=== PATIENT | female | born 1950 | race Caucasian/White ===

== ENCOUNTER 2016-08-07 11:52 | Emergency (ER) | payer MEDICARE, MEDICAID ==
[2016-06-20 09:18] VITALS: BMI 52.6
[~2016-08-07 11:52] MED LIST: ACTOS15 MG PO; ADVIL100 M1 PO; BAYER CHEWABLE81 MG PO; BUPROPION XL300 MG PO; CALAN SR240 MG PO; COUMADIN3 MG PO; COUMADIN6 MG PO; CYMBALTA30 MG PO; GLIMEPIRIDE4 MG PO; HUMALOG 30100 UNITS/ SC; HUMULIN R100 U/ML SC; HYDROCODONE-APA1 TAB PO; IBUPROFEN400 MG OR; INFED50 MG/ML; INSTA-GLUCOSE31 GM; LANTUS INSULIN10 ML SC; LASIX40 MG PO; LEVAQUIN250 MG PO; LISINOPRIL2.5 MG GT; LISINOPRIL2.5 MG PO; MACRODANTIN50 MG PO; MERREM 1 GM/NS 11 G1 IVPB; MOBIC7.5 MG PO; NIFEREX-150 CAP1 CA3 PO; NOVOLOG100 U/M1 SC; OMEPRAZOLE20 M1 PO; OXYBUTYNIN CHLOR5 MG PO; PRAVACHOL20 MG PO; PRILOSEC20 MG PO; RENVELA800 MG PO; REQUIP1 MG PO; ROCALTROL0.25 MCG PO; VANCOMYCIN 750750 MG IV; ZYVOX600 MG PO
[2016-08-07 12:31] LABS: BASOPHILS 0.3 % (0.0-2.0); EOSINOPHILS 3.8 % (0-7); HEMATOCRIT 30.3 % (36.0-48.0); HEMOGLOBIN 9.5 g/dL (12-16); IMMATURE GRANULOCYTES 0.2 % (0-5); MCHC 31.4 g/dL (31.0-37.0); MCV 89.4 fL (80.0-100.0); MEAN PLATELET VOLUME 9.3 fL (7.4-10.4); MONOCYTES 4.6 % (2-11); NEUTROPHILS 63.1 % (40-80); PLATELET COUNT 199 10x3/uL (130-400); RBC 3.39 10x6/uL (4.00-5.40); RDW 15.3 % (11.5-14.5); WBC 6.5 10x3/uL (4.8-10.8)
[2016-08-07 12:34] LABS: APPEARANCE CLEAR (CLEAR); BACTERIA FEW /hpf (NONE SEEN); BILIRUBIN NEGATIVE (NEGATIVE); COLOR STRAW (YELLOW); EPITHELIAL CELLS 0-5 /hpf (0-5); GLUCOSE NEGATIVE (NEGATIVE); KETONE NEGATIVE (NEGATIVE); LEUKOCYTE ESTERASE TRACE (NEGATIVE); NITRITE NEGATIVE (NEGATIVE); PROTEIN NEGATIVE (NEGATIVE); RED CELLS - URINE 0-5 /hpf (0-5); UROBILINOGEN NORMAL (NORMAL); WHITE CELLS - URINE 0-5 /hpf (0-5)
[2016-08-07 12:46] LABS: BILIRUBIN - TOTAL 0.3 mg/dL (0.2-1.3); CALCIUM 8.7 mg/dL (8.5-10.1); CARBON DIOXIDE 26.9 mmol/L (21.0-32.0); POTASSIUM - SERUM 4.9 mmol/L (3.5-5.1); PROTEIN - SERUM 6.8 g/dL (6.4-8.2)
[2016-08-07 13:02] LABS: APTT 69.8 SECONDS (22.8-39.4); INR 2.38 (0.85-1.17); PROTIME 26.1 SECONDS (11.6-15.0)
== END 2016-08-07 17:32 | disposition home or self-care (01) ==
LOC: D.ER 11:52
PROVIDERS: Emergency Medicine; Physician Assistant
DX: R53.1 Weakness (principal); N39.0 Urinary tract infection, site not specified; E11.9 Type 2 diabetes mellitus without complications; Z79.4 Long term (current) use of insulin; N18.9 Chronic kidney disease, unspecified; R10.32 Left lower quadrant pain; R05 Cough; D63.1 Anemia in chronic kidney disease

== ENCOUNTER 2016-08-22 15:16 | Emergency (ER) | payer MEDICARE, MEDICAID ==
[2016-06-20 09:18] VITALS: BMI 52.6
[2016-08-22 16:33] LABS: BASOPHILS 0.3 % (0.0-2.0); EOSINOPHILS 4.4 % (0-7); HEMATOCRIT 36.2 % (36.0-48.0); HEMOGLOBIN 11.4 g/dL (12-16); IMMATURE GRANULOCYTES 0.1 % (0-5); LYMPHOCYTES 33.9 % (15-50); MCH 28.3 pg (26.0-34.0); MCHC 31.5 g/dL (31.0-37.0); MCV 89.8 fL (80.0-100.0); MEAN PLATELET VOLUME 9.3 fL (7.4-10.4); MONOCYTES 4.9 % (2-11); NEUTROPHILS 56.4 % (40-80); RBC 4.03 10x6/uL (4.00-5.40); RDW 15.4 % (11.5-14.5); WBC 7.4 10x3/uL (4.8-10.8)
[2016-08-22 16:41] LABS: PLATELET COUNT 252 10x3/uL (130-400)
[2016-08-22 17:06] LABS: ALBUMIN 3.5 g/dL (3.4-5.0); ALKALINE PHOSPHATASE 61 U/L (46-116); ALT (SGPT) 25 U/L (10-68); CALC OSMOLALITY 306 mosm/kg (275-300); CALCIUM 8.8 mg/dL (8.5-10.1); CARBON DIOXIDE 24.3 mmol/L (21.0-32.0); CHLORIDE - SERUM 107 mmol/L (98-107); CREATININE - SERUM 2.6 mg/dL (0.6-1.3); GLUCOSE 181 mg/dL (74-106); POTASSIUM - SERUM 4.6 mmol/L (3.5-5.1); PROTEIN - SERUM 7.4 g/dL (6.4-8.2); SODIUM 143 mmol/L (136-145); UREA NITROGEN 61 mg/dL (7-18); eGFR NON AFRICAN AMERICAN 19 mL/min (90-120)
[2016-08-22 17:19] LABS: AMYLASE - SERUM 25 U/L (25-115); LIPASE 204 U/L (73-393); PRO BNP 146 pg/mL (0-125)
[2016-08-22 17:21] LABS: TROPONIN-I < 0.017 ng/mL (0.000-0.060)
== END 2016-08-22 19:10 | disposition home or self-care (01) ==
LOC: D.ER 15:16
PROVIDERS: Family Medicine
DX: T85.9XXA Unspecified complication of internal prosthetic device, implant and graft, initial encounter (principal); R19.7 Diarrhea, unspecified; I50.9 Heart failure, unspecified; D63.8 Anemia in other chronic diseases classified elsewhere; E87.5 Hyperkalemia; I12.9 Hypertensive chronic kidney disease with stage 1 through stage 4 chronic kidney disease, or unspecified chronic kidney disease; E11.9 Type 2 diabetes mellitus without complications; Z79.4 Long term (current) use of insulin

== ENCOUNTER 2016-10-19 13:02 | Emergency (ER) | payer MEDICARE, MEDICAID ==
[2016-06-20 09:18] VITALS: BMI 52.6
[2016-10-19 13:50] LABS: HEMATOCRIT 30.8 % (36.0-48.0); HEMOGLOBIN 10.2 g/dL (12-16); LYMPHOCYTES 20.8 % (15-50); MCH 28.8 pg (26.0-34.0); MCHC 33.1 g/dL (31.0-37.0); MEAN PLATELET VOLUME 9.1 fL (7.4-10.4); NEUTROPHILS 74.6 % (40-80); PLATELET COUNT 268 10x3/uL (130-400); RBC 3.54 10x6/uL (4.00-5.40); RDW 14.5 % (11.5-14.5); WBC 8.1 10x3/uL (4.8-10.8)
[2016-10-19 14:05] LABS: APTT 44.4 SECONDS (22.8-39.4); INR 2.73 (0.85-1.17); PROTIME 29.1 SECONDS (11.6-15.0)
[2016-10-19 14:12] LABS: ANION GAP 16.6 mmol/L (8-16); CALCIUM 8.7 mg/dL (8.5-10.1); CREATININE - SERUM 2.8 mg/dL (0.6-1.3); POTASSIUM - SERUM 4.6 mmol/L (3.5-5.1)
== END 2016-10-19 15:14 | disposition home or self-care (01) ==
LOC: D.ER 13:02
PROVIDERS: Emergency Medicine
DX: K64.8 Other hemorrhoids (principal); K92.2 Gastrointestinal hemorrhage, unspecified; K59.00 Constipation, unspecified; E11.65 Type 2 diabetes mellitus with hyperglycemia; Z79.4 Long term (current) use of insulin; N28.9 Disorder of kidney and ureter, unspecified; F32.9 Major depressive disorder, single episode, unspecified; K21.9 Gastro-esophageal reflux disease without esophagitis; I10 Essential (primary) hypertension

== ENCOUNTER 2016-12-08 13:56 | Emergency (ER) | payer MEDICARE, MEDICAID ==
[2016-06-20 09:18] VITALS: BMI 52.6
[2016-12-08 19:02] LABS: APPEARANCE HAZY (CLEAR); COLOR YELLOW (YELLOW); LEUKOCYTE ESTERASE 2+ (NEGATIVE); NITRITE POSITIVE (NEGATIVE); SPECIFIC GRAVITY 1.015 (1.005-1.020)
[2016-12-08 19:03] LABS: BACTERIA MANY /hpf (NONE SEEN); BILIRUBIN NEGATIVE (NEGATIVE); EPITHELIAL CELLS 0-5 /hpf (0-5); GLUCOSE NEGATIVE (NEGATIVE); KETONE NEGATIVE (NEGATIVE); PROTEIN TRACE mg/dL (NEGATIVE); RED CELLS - URINE 0-5 /hpf (0-5); UROBILINOGEN NORMAL (NORMAL)
[2016-12-08 19:16] LABS: BASOPHILS 0.4 % (0-2); EOSINOPHILS 2.4 % (0-7); HEMATOCRIT 34.7 % (36.0-48.0); IMMATURE GRANULOCYTES 0.1 % (0-5); LYMPHOCYTES 33.7 % (15-50); MCH 29.5 pg (26.0-34.0); MCHC 31.7 g/dL (31.0-37.0); MEAN PLATELET VOLUME 9.6 fL (7.4-10.4); NEUTROPHILS 59.4 % (40-80); PLATELET COUNT 282 10x3/uL (130-400); RBC 3.73 10x6/uL (4.00-5.40); RDW 14.8 % (11.5-14.5); WBC 8.4 10x3/uL (4.8-10.8)
[2016-12-08 19:28] LABS: ANION GAP 16.4 mmol/L (8-16); CALCIUM 9.3 mg/dL (8.5-10.1); CARBON DIOXIDE 25.7 mmol/L (21.0-32.0); CREATININE - SERUM 2.8 mg/dL (0.6-1.3); POTASSIUM - SERUM 5.1 mmol/L (3.5-5.1)
== END 2016-12-08 19:45 | disposition home or self-care (01) ==
LOC: D.ER 13:56
PROVIDERS: Nurse Practitioner Acute Care
DX: N39.0 Urinary tract infection, site not specified (principal); F32.9 Major depressive disorder, single episode, unspecified; E11.9 Type 2 diabetes mellitus without complications; I10 Essential (primary) hypertension; Z79.4 Long term (current) use of insulin; K21.9 Gastro-esophageal reflux disease without esophagitis

== ENCOUNTER 2016-12-27 17:52 | Emergency (ER) | payer MEDICARE, MEDICAID ==
[2016-06-20 09:18] VITALS: BMI 52.6
[~2016-12-27 17:52] MED LIST changes: -HYDROCODONE-APA1 TAB PO; +NORCO 7.5/325 T1 TA1 PO
[2016-12-29] MEDS ORDERED: LANTUS INSULIN10 ML SC (10:00)
[2016-12-29] MEDS ORDERED: STOOL SOFTENER100 M1 PO (10:03)
[2016-12-29] MEDS ORDERED: MUCINEX600 MG PO (10:03)
[2016-12-29] MEDS ORDERED: VITAMIN B-12500 MC1 PO (10:04)
[2016-12-29] MEDS ORDERED: MELATONIN10 M1 PO (10:05)
[2016-12-29] MEDS ORDERED: VERELAN PM100 MG PO (10:05)
== END 2016-12-27 20:38 | disposition home or self-care (01) ==
LOC: D.ER 17:52
DX: S91.114A Laceration without foreign body of right lesser toe(s) without damage to nail, initial encounter (principal); W23.0XXA Caught, crushed, jammed, or pinched between moving objects, initial encounter

== ENCOUNTER → 2016-12-29 09:10 | Outpatient (CLI) | payer MEDICARE, MEDICAID ==
[~2016-12-29 09:10] MED LIST changes: +MELATONIN10 M1 PO; +MUCINEX600 MG PO; +STOOL SOFTENER100 M1 PO; +VERELAN PM100 MG PO; +VITAMIN B-12500 MC1 PO
[2016-12-29 11:41] VITALS: Ht 165.1 cm
--- NOTE | 2016-12-29 11:46 | NUR ---
MICHELLE MCDANIEL TWISTING MACHINE OPERATOR ACCESS NURSE, UNABLE TO PLACE PICC LINE AT BEDSIDE, MICHELLE MCDANIEL HAS SCHEDULED PATIENT FOR PICC LINE IN INTERVENTIONAL RADIOLOGY AND HAS GIVEN PATIENT INFO FOR THAT PROCEDURE.
--- NOTE | 2016-12-29 11:53 | NUR ---
PATIENT DISCHARGED HOME VIA MOTORIZED WHEELCHAIR WITH CAREGIVER
== END | disposition home or self-care (01) ==
LOC: D.OPS 09:10
DX: D64.9 Anemia, unspecified (principal)

== ENCOUNTER → 2016-12-31 09:06 | Outpatient (CLI) | payer MEDICARE, MEDICAID ==
--- NOTE | ~2016-12-31 | HEMODYNAMI ---
PATIENT:ELSA GARCÍA MEDICAL RECORD: [id number] : 46 LOCATION:[facility] ADMISSION DATE: 12/31/16 Generatedon:12/31/201611:53 Patient name: ELSA GARCÍA Patient #: [id number] SSN: : 1950 Date of study: 12/31/2016 Page: Of Hemodynamic Procedure Report Patient Data Patient Demographics Procedure consent was obtained First Name: ELSA Gender: Female Last Name: RICKY : 1950 Middle Initial: O Age: 66 year(s) Patient #: [id number] Race: Unknown Additional ID: [id number] Contact details Address: [address] [place] [address] State: [place] City: [place] Zip code: [address] Admission Admission Data Admission Date: 12/31/2016 Admission Time: 9:06 Procedure Procedure Types Cath Procedure Peripheral Cath Diagnostic Procedure Cath Peripheral PICC PICC Line Placement Procedure Description Procedure Date Procedure Date: 12/31/2016 Procedure Start Time: 11:36 Procedure Staff Name Function Maxwell Kang MD Performing Physician Amy Lester RT Scrub Nayeli Hernandez RN Nurse Candice Hopson RT Monitor Procedure Data Cath Procedure Fluoroscopy Diagnostic fluoroscopy Total fluoroscopy Time: 1.7 time: 1.7 min min Diagnostic fluoroscopy Total fluoroscopy dose: dose: 14.2 mGy 14.2 mGy Hemodynamics Rest Pre Cath Intra NCS Post Cath Procedure Log Time Note 11:25:19 Time tracking: Regular hours 11:25:32 Use device set PICC 11:25:34 SorbaView Shield opened to sterile field. 11:25:35 Sterile Angiographic Pack opened to sterile field. 11:25:36 Bag Decanter opened to sterile field. 11:25:58 Right Arm area was prepped with chlora-prep and draped in sterile fashion 11:26:07 Signed procedure consent form obtained from patient. 11:35:02 Final Timeout: patient, procedure, and site verified with staff and physician. All members of the team are in agreement. 11:35:50 Procedure started. 11:36:47 Local anesthetic to right arm with Lidocaine 1% by Maxwell Kang MD.INITIAL ACCESS ONLY 11:37:51 Full Disclosure recording started 11:43:05 Venous access obtained using ultrasound guidance. 11:51:07 PICC line was trimmed to 48cmcm and advanced to the superior vena cava.Position verified under fluoroscopy. 11:51:17 Procedure ended.(Physican Out) 11:51:41 Fluoroscopy time 01.70 minutes. 11:51:51 Fluoroscopy dose: 14.2 mGy 11:51:51 Flurop Dose total: 14.2 11:51:53 Sharps counted by scrub and verified by R.N. 11:51:56 Procedure and supply charges have been captured, reviewed, submitted and are correct. Device Usage Item Name Manufacture Quantity Catalog Hospital Part Current Minimal Lot# / Number Charge Number Stock Stock Serial# Code Jos Coulterurion 1 [id number] 5 Shield Sterile Cardinal 1 [id number] 5 Angiographic Health Pack Bag Decanter Microtek 1 [facility] [id number] 5 Medical Inc[employer] Signature Audit [place] Stage Time Signature Unsigned Intra-Procedure 12/31/2016 Candice Hopson 11:53:26 AM RT(R) Signatures Monitor : Candice Hopson RT Signature : Date : Time : [address] [address]
== END | disposition home or self-care (01) ==
LOC: D.OPS 09:06 → D.RAD 10:00 → D.OPS 10:00
DX: D50.9 Iron deficiency anemia, unspecified (principal)

== ENCOUNTER → 2017-02-09 14:57 | Outpatient (CLI) | payer MEDICARE, MEDICAID ==
[2017-02-09 15:45] LABS: HEMOGLOBIN A1C 6.4 % (4.8-6.0)
== END | disposition home or self-care (01) ==
LOC: D.LABREF 14:57
PROVIDERS: Family Medicine
DX: E11.9 Type 2 diabetes mellitus without complications (principal)

== ENCOUNTER → 2017-03-01 15:06 | Outpatient (CLI) | payer MEDICARE, MEDICAID | END | disposition home or self-care (01) | LOC: D.LABREF 15:06 | DX: N39.0 Urinary tract infection, site not specified (principal); R30.0 Dysuria ==

== ENCOUNTER → 2017-03-06 16:06 | Outpatient (CLI) | payer MEDICARE, MEDICAID ==
[2017-03-06 16:46] LABS: ANION GAP 14.7 mmol/L (8-16); CALCIUM 8.1 mg/dL (8.5-10.1); CREATININE - SERUM 2.8 mg/dL (0.6-1.3); POTASSIUM - SERUM 4.7 mmol/L (3.5-5.1)
== END | disposition home or self-care (01) ==
LOC: D.LABREF 16:06
PROVIDERS: Family Medicine
DX: N30.00 Acute cystitis without hematuria (principal); R31.9 Hematuria, unspecified; I12.9 Hypertensive chronic kidney disease with stage 1 through stage 4 chronic kidney disease, or unspecified chronic kidney disease; N18.9 Chronic kidney disease, unspecified

== ENCOUNTER → 2017-03-09 16:27 | Outpatient (CLI) | payer MEDICARE, MEDICAID ==
[2017-03-09 20:32] LABS: ANION GAP 16.4 mmol/L (8-16); CALCIUM 9.2 mg/dL (8.5-10.1); CARBON DIOXIDE 25.1 mmol/L (21.0-32.0); POTASSIUM - SERUM 4.5 mmol/L (3.5-5.1)
== END | disposition home or self-care (01) ==
LOC: D.LABREF 16:27
DX: N39.0 Urinary tract infection, site not specified (principal)

== ENCOUNTER → 2017-04-28 13:56 | Outpatient (CLI) | payer MEDICARE, MEDICAID ==
[~2017-04-28 13:56] MED LIST changes: +BACLOFEN10 MG PO; +COUMADIN5 MG PO; +FERROUS SULFAT140 MG PO; +INVANZ 1 GM/NS 11 G1 IV; +IRON; +LINZESS145 MCG PO; +TYLENOL W/CODEI1 TAB PO; +ZOFRAN4 MG PO
[2017-04-28 15:17] LABS: APPEARANCE HAZY (CLEAR); BACTERIA MANY /hpf (NONE SEEN); BILIRUBIN NEGATIVE (NEGATIVE); COLOR YELLOW (YELLOW); EPITHELIAL CELLS 0-5 /hpf (0-5); GLUCOSE NEGATIVE (NEGATIVE); KETONE NEGATIVE (NEGATIVE); NITRITE NEGATIVE (NEGATIVE); PROTEIN TRACE mg/dL (NEGATIVE); RED CELLS - URINE 0-5 /hpf (0-5); UROBILINOGEN NORMAL (NORMAL); WHITE CELLS - URINE 25-50 /hpf (0-5)
== END | disposition home or self-care (01) ==
LOC: D.LABREF 13:56
PROVIDERS: Family Medicine
DX: N39.0 Urinary tract infection, site not specified (principal)

== ENCOUNTER → 2017-05-21 09:10 | Outpatient (CLI) | payer MEDICARE, MEDICAID ==
[2017-05-03 12:04] VITALS: BMI 52.0
[2017-05-21 11:31] LABS: APPEARANCE SLT CLOUDY (CLEAR); BILIRUBIN NEGATIVE (NEGATIVE); COLOR YELLOW (YELLOW); GLUCOSE 50 mg/dL (NEGATIVE); KETONE SMALL mg/dL (NEGATIVE); NITRITE NEGATIVE (NEGATIVE); PROTEIN TRACE mg/dL (NEGATIVE); UROBILINOGEN NORMAL (NORMAL)
[2017-05-21 11:34] LABS: BACTERIA MODERATE /hpf (NONE SEEN); EPITHELIAL CELLS 0-5 /hpf (0-5); MUCUS <1+ /lpf (NONE SEEN); RED CELLS - URINE RARE /hpf (0-5)
== END | disposition home or self-care (01) ==
LOC: D.LABREF 09:10
PROVIDERS: Family Medicine
DX: N39.0 Urinary tract infection, site not specified (principal)

== ENCOUNTER → 2017-05-28 13:15 | Outpatient (CLI) | payer MEDICARE, MEDICAID ==
[2017-05-03 12:04] VITALS: BMI 52.0
[2017-05-28 13:35] LABS: ANION GAP 16.4 mmol/L (8-16); CALCIUM 8.1 mg/dL (8.5-10.1); CARBON DIOXIDE 23.5 mmol/L (21.0-32.0); CREATININE - SERUM 2.8 mg/dL (0.6-1.3); POTASSIUM - SERUM 4.9 mmol/L (3.5-5.1)
== END | disposition home or self-care (01) ==
LOC: D.LABREF 13:15
PROVIDERS: Family Medicine
DX: E87.5 Hyperkalemia (principal)

== ENCOUNTER 2017-06-10 11:32 | Inpatient (IN) | payer MEDICARE, MEDICAID ==
[~2017-06-10] VITALS: Ht 160 cm; Wt 123.1 kg
[~2017-06-10 11:32] MED LIST changes: -BACLOFEN10 MG PO; -FERROUS SULFAT140 MG PO; -IRON; -TYLENOL W/CODEI1 TAB PO; -ZOFRAN4 MG PO
[2017-06-10 12:28] LABS: APPEARANCE CLOUDY (CLEAR); BACTERIA MANY /hpf (NONE SEEN); BILIRUBIN NEGATIVE (NEGATIVE); COLOR YELLOW (YELLOW); EPITHELIAL CELLS RARE /hpf (0-5); GLUCOSE NEGATIVE (NEGATIVE); KETONE NEGATIVE (NEGATIVE); MUCUS <1+ /lpf (NONE SEEN); NITRITE NEGATIVE (NEGATIVE); PROTEIN NEGATIVE (NEGATIVE); RED CELLS - URINE OCC /hpf (0-5); UROBILINOGEN NORMAL (NORMAL); WHITE CELLS - URINE 25-50 /hpf (0-5)
[2017-06-10 13:51] LABS: BASOPHILS 0.2 % (0-2); EOSINOPHILS 1.9 % (0-7); HEMATOCRIT 31.7 % (36.0-48.0); HEMOGLOBIN 9.7 g/dL (12-16); IMMATURE GRANULOCYTES 0.1 % (0-5); LYMPHOCYTES 16.6 % (15-50); MCH 27.5 pg (26.0-34.0); MCHC 30.6 g/dL (31.0-37.0); MCV 89.8 fL (80.0-100.0); MEAN PLATELET VOLUME 9.6 fL (7.4-10.4); MONOCYTES 4.6 % (2-11); NEUTROPHILS 76.6 % (40-80); RBC 3.53 10x6/uL (4.00-5.40); RDW 15.3 % (11.5-14.5); WBC 8.1 10x3/uL (4.8-10.8)
[2017-06-10 13:53] LABS: ANION GAP 13.3 mmol/L (8-16); BILIRUBIN - TOTAL 0.23 mg/dL (0.2-1.3); CALCIUM 8.6 mg/dL (8.5-10.1); CARBON DIOXIDE 25.6 mmol/L (21.0-32.0); CREATININE - SERUM 2.9 mg/dL (0.6-1.3); PLATELET COUNT 277 10x3/uL (130-400); POTASSIUM - SERUM 4.9 mmol/L (3.5-5.1); PROTEIN - SERUM 7.6 g/dL (6.4-8.2)
[2017-06-10 17:56] LABS: INR 1.25 (0.85-1.17); PROTIME 15.3 SECONDS (11.6-15.0)
--- NOTE | 2017-06-10 19:15 | NUR ---
PT ARRIVED TO FLOOR FROM ER. VSS. BREATHING EVEN AND UNLABORED. ORIENTED PT TO FLOOR AND NURSE. DENIES ANY NEEDS AT THIS TIME. BED IN LOW POSITION, CALL LIGHT WITHIN REACH. WILL CTM.
[2017-06-10 20:19] VITALS: BP 122/45
[2017-06-10 21:21] VITALS: BP 122/45; BMI 50.9
--- NOTE | 2017-06-10 21:32 | NUR ---
FSBS 184. 2 UNITS OF HUMALOG GIVEN PER SLIDING SCALE ORDER. DENIES ANY OTHER NEEDS AT THIS TIME. BED IN LOW POSITION, CALL LIGHT WITHIN REACH. WILL CTM.
--- NOTE | 2017-06-10 21:37 | NUR ---
PT HAS STATED SHE DOES NOT WANT TO PUT ON TELEMTRY UNTIL AFTER WE GIVE HER A BATH TONIGHT. SHE STATES SHE ISNT READY FOR A BATH YET BUT WILL LET US KNOW. SHE ALSO STATES SHE DOESNT WANT SCDS ON TONIGHT BUT MAYBE IN THE MORNING. WILL CTM.
[2017-06-11 00:38] VITALS: BP 158/50
[2017-06-11 04:57] VITALS: BP 154/58
[2017-06-11 05:39] LABS: INR 1.4 (0.85-1.17); PROTIME 16.7 SECONDS (11.6-15.0)
[2017-06-11 05:50] LABS: HEMATOCRIT 29.1 % (36.0-48.0); HEMOGLOBIN 9.4 g/dL (12-16); LYMPHOCYTES 20.2 % (15-50); MCH 28.1 pg (26.0-34.0); MCHC 32.3 g/dL (31.0-37.0); MCV 86.9 fL (80.0-100.0); MEAN PLATELET VOLUME 9.1 fL (7.4-10.4); NEUTROPHILS 71.8 % (40-80); PLATELET COUNT 257 10x3/uL (130-400); RBC 3.35 10x6/uL (4.00-5.40); RDW 14.4 % (11.5-14.5); WBC 7.2 10x3/uL (4.8-10.8)
[2017-06-11 06:01] LABS: ALBUMIN 2.6 g/dL (3.4-5.0); ANION GAP 15.6 mmol/L (8-16); BILIRUBIN - TOTAL 0.34 mg/dL (0.2-1.3); CALCIUM 8.3 mg/dL (8.5-10.1); CARBON DIOXIDE 24.3 mmol/L (21.0-32.0); CREATININE - SERUM 3.2 mg/dL (0.6-1.3); POTASSIUM - SERUM 4.9 mmol/L (3.5-5.1); PROTEIN - SERUM 6.9 g/dL (6.4-8.2)
[2017-06-11 08:00] VITALS: BP 151/50
--- NOTE | 2017-06-11 08:33 | NUR ---
AM ROUNDS - PT IN BED AND AWAKE AT THIS TIME. MONITOR SHOWING SR, HR 89. LEFT ARM MIDLINE, SL. GILES DRAINING CLEAR YELLOW. A&O. REFUSES SCD. NO NEEDS AT THIS TIME. BED AT LOWEST POSITIN. CALL TY IN USE/REACH. SIDE RAILS UP X2. WILL CONTTINUE TO MONITOR.
[2017-06-11 12:00] VITALS: BP 130/53
--- NOTE | 2017-06-11 15:27 | NUR ---
PT IN BED AND APPEARS TO BE RESTING WITH EQUAL AND NON LABORED BREATHING. WILL CONTINUE TO MONITOR
[2017-06-11 16:00] VITALS: BP 133/55
[2017-06-11 20:00] VITALS: BP 133/61
[2017-06-12] VITALS: BP 125/58
[2017-06-12 04:00] VITALS: BP 121/56
[2017-06-12 05:48] LABS: BASOPHILS 0.2 % (0-2); EOSINOPHILS 2.9 % (0-7); HEMATOCRIT 30.1 % (36.0-48.0); HEMOGLOBIN 9.5 g/dL (12-16); IMMATURE GRANULOCYTES 0.2 % (0-5); LYMPHOCYTES 22.6 % (15-50); MCH 27.8 pg (26.0-34.0); MCHC 31.6 g/dL (31.0-37.0); MEAN PLATELET VOLUME 9.4 fL (7.4-10.4); MONOCYTES 8.7 % (2-11); NEUTROPHILS 65.4 % (40-80); PLATELET COUNT 256 10x3/uL (130-400); RBC 3.42 10x6/uL (4.00-5.40); RDW 15.2 % (11.5-14.5); WBC 6.5 10x3/uL (4.8-10.8)
[2017-06-12 06:09] LABS: INR 1.15 (0.85-1.17); PROTIME 14.2 SECONDS (11.6-15.0)
[2017-06-12 06:17] LABS: ALBUMIN 2.5 g/dL (3.4-5.0); ANION GAP 14.9 mmol/L (8-16); BILIRUBIN - TOTAL 0.3 mg/dL (0.2-1.3); CALCIUM 8.5 mg/dL (8.5-10.1); CARBON DIOXIDE 24.6 mmol/L (21.0-32.0); CREATININE - SERUM 3.2 mg/dL (0.6-1.3); POTASSIUM - SERUM 4.5 mmol/L (3.5-5.1); PROTEIN - SERUM 6.8 g/dL (6.4-8.2)
[2017-06-12 07:54] VITALS: BP 112/40
--- NOTE | 2017-06-12 09:00 | NUR ---
REPORT RECEIVED. ASSESSMENT COMPLETED. ON CONTACT ISOLATION FOR ECOLI IN URINE. WILL CONTINUE TO MONITOR.
[2017-06-12 12:36] VITALS: BP 145/55
[2017-06-12 15:49] VITALS: BP 135/49
--- NOTE | 2017-06-12 19:33 | NUR ---
PT IN BED RESTING QUIETLY. BREATHING EVEN AND UNLABORED. DENIES ANY NEEDS AT THIS TIME. BED IN LOW POSITION, CALL LIGHT WITHIN REACH. WILL CTM.
[2017-06-12 20:00] VITALS: BP 117/54
[2017-06-13 04:00] VITALS: BP 124/60
[2017-06-13 05:21] LABS: BASOPHILS 0.1 % (0-2); EOSINOPHILS 3.6 % (0-7); HEMOGLOBIN 9.3 g/dL (12-16); IMMATURE GRANULOCYTES 0.1 % (0-5); LYMPHOCYTES 29.3 % (15-50); MCH 27.9 pg (26.0-34.0); MCHC 32.1 g/dL (31.0-37.0); MCV 87.1 fL (80.0-100.0); MEAN PLATELET VOLUME 9.5 fL (7.4-10.4); MONOCYTES 7.3 % (2-11); NEUTROPHILS 59.6 % (40-80); PLATELET COUNT 253 10x3/uL (130-400); RBC 3.33 10x6/uL (4.00-5.40); WBC 6.7 10x3/uL (4.8-10.8)
[2017-06-13 05:31] LABS: INR 1.37 (0.85-1.17); PROTIME 16.4 SECONDS (11.6-15.0)
[2017-06-13 05:42] LABS: ALBUMIN 2.4 g/dL (3.4-5.0); ANION GAP 15.3 mmol/L (8-16); BILIRUBIN - TOTAL 0.23 mg/dL (0.2-1.3); CALCIUM 8.1 mg/dL (8.5-10.1); CARBON DIOXIDE 23.8 mmol/L (21.0-32.0); CREATININE - SERUM 2.9 mg/dL (0.6-1.3); POTASSIUM - SERUM 4.1 mmol/L (3.5-5.1); PROTEIN - SERUM 6.6 g/dL (6.4-8.2)
--- NOTE | 2017-06-13 05:49 | NUR ---
FSBS 171. 2 UNITS HUMALOG GIVEN PER SLIDING SCALE. DENIES ANY OTHER NEEDS AT THIS TIME. BED IN LOW POSITION, CALL LIGHT WITHIN REACH. WILL CTM.
--- NOTE | 2017-06-13 07:53 | NUR ---
AM ROUNDS - PT IN BED AND APPEARS TO BE SLEEPING AT THIS TIME WITH EQUALA ND NON LABORED BREATHING. GILES. LEFT ARM MIDLINE. BED AT LOWEST POSITION. CALL TY IN USE/REACH. SIDE RAILS UP X2. WILL COTNINUE TO MONIOTR
[2017-06-13 08:00] VITALS: BP 113/38
[2017-06-13 12:00] VITALS: BP 113/41
[2017-06-13 16:00] VITALS: BP 148/31
--- NOTE | 2017-06-13 19:43 | NUR ---
RECEIVED REPORT, WILL ASSUME CARE OF PT, PT DENIES ANY OTHER NEEDS AT THIS TIME, STATES SAID SHE WILL PROBALY GET TO GO HOME TOMORROW, SHE IS COLORING AT THIS TIME, BED IS LOW, SRX2, CALL LIGHT IN REACH, WILL CONTINUE PLAN OF CARE
[2017-06-13 21:01] VITALS: BP 111/41
[2017-06-14 00:52] VITALS: BP 120/65
[2017-06-14 05:32] LABS: BASOPHILS 0.3 % (0-2); EOSINOPHILS 4.1 % (0-7); HEMATOCRIT 29.5 % (36.0-48.0); HEMOGLOBIN 9.4 g/dL (12-16); IMMATURE GRANULOCYTES 0.3 % (0-5); LYMPHOCYTES 30.5 % (15-50); MCH 27.6 pg (26.0-34.0); MCHC 31.9 g/dL (31.0-37.0); MCV 86.8 fL (80.0-100.0); MONOCYTES 7.2 % (2-11); NEUTROPHILS 57.6 % (40-80); PLATELET COUNT 243 10x3/uL (130-400); RDW 14.9 % (11.5-14.5); WBC 6.9 10x3/uL (4.8-10.8)
[2017-06-14 05:36] VITALS: BP 150/49
[2017-06-14 05:41] LABS: INR 1.57 (0.85-1.17); PROTIME 18.2 SECONDS (11.6-15.0)
[2017-06-14 05:54] LABS: ALBUMIN 2.6 g/dL (3.4-5.0); BILIRUBIN - TOTAL 0.17 mg/dL (0.2-1.3); CALCIUM 7.9 mg/dL (8.5-10.1); CARBON DIOXIDE 25.2 mmol/L (21.0-32.0); CREATININE - SERUM 2.8 mg/dL (0.6-1.3); POTASSIUM - SERUM 4.2 mmol/L (3.5-5.1); PROTEIN - SERUM 6.3 g/dL (6.4-8.2)
--- NOTE | 2017-06-14 08:19 | NUR ---
AM MEDS GIVEN AT THIS TIME. PT IN BED, FIXING TO EAT BREAKFAST. PT DENIES ANY NEEDS AT THIS TIME. MICROCOMPUTER SUPPORT SPECIALIST AT BEDSIDE TO DO VITAL SIGNS. NAD NOTED, CALL LIGHT IN REACH, WILL CONTINUE PLAN OF CARE.
[2017-06-14 08:42] VITALS: BP 152/55
--- NOTE | 2017-06-14 11:56 | NUR ---
BLOOD SUGAR OF 189, 2UNTIS OF HUMALOG GIVEN PER S/S. PT DENIES ANY NEEDS AT THIS TIME. CALL LIGHT IN REACH, NAD NOTED.
[2017-06-14 13:41] VITALS: BP 125/52
[2017-06-14 14:11] VITALS: Ht 160 cm; Wt 123.1 kg
--- NOTE | 2017-06-14 15:12 | NUR ---
PT IN BED, WATCHING TV, DENIES ANY NEEDS AT THIS TIME. CALL LIGHT IN REACH, NAD NOTED, WILL CONTINUE PLAN OF CARE.
--- NOTE | 2017-06-14 16:05 | NUR ---
CALLED PHARMACY AND SPOKE WITH RAFAELA RUSSO THAT I NEED CUBICIN FOR PT. RAFAELA STATED " WE WILL WORK ON IT".
--- NOTE | 2017-06-14 17:31 | NUR ---
BLOOD SUGAR OF 189, 2UNITS OF HUMALOG GIVEN PER S/S. ALSO HUNG IVPB CUBICIN AT THIS TIME. PT IN BE, EATING DINNER, DENIES ANY NEEDS AT THIS TIME. CALL LIGHT IN REACH, NAD NOTED.
[2017-06-14 17:42] VITALS: BP 128/36
--- NOTE | 2017-06-14 19:24 | NUR ---
RECEIVED REPORT, WILL ASSUME CARE OF PT, PT IS COLORING, DENIES ANY NEEDS, BED IS LOW, SRX2, CALL LIGHT IN REACH, WILL CONTINUE PLAN OF CARE
[2017-06-14 20:53] VITALS: BP 106/64
[2017-06-15 00:37] VITALS: BP 110/47
--- NOTE | 2017-06-15 02:43 | NUR ---
ASSESSMENT COMPLETE, SEE FLOWSHEET, PT SLEEPING, BED IS LOW, SRX2, CALL LIGHT IN REACH, WILL CONTINUE PLAN OF CARE
[2017-06-15 04:20] VITALS: BP 180/54
[2017-06-15 05:11] LABS: BASOPHILS 0.2 % (0-2); EOSINOPHILS 3.8 % (0-7); HEMATOCRIT 30.5 % (36.0-48.0); HEMOGLOBIN 9.6 g/dL (12-16); IMMATURE GRANULOCYTES 0.2 % (0-5); LYMPHOCYTES 29.2 % (15-50); MCH 27.5 pg (26.0-34.0); MCHC 31.5 g/dL (31.0-37.0); MCV 87.4 fL (80.0-100.0); MONOCYTES 4.7 % (2-11); NEUTROPHILS 61.9 % (40-80); PLATELET COUNT 267 10x3/uL (130-400); RBC 3.49 10x6/uL (4.00-5.40); RDW 14.7 % (11.5-14.5); WBC 6.1 10x3/uL (4.8-10.8)
[2017-06-15 05:19] LABS: INR 1.69 (0.85-1.17); PROTIME 19.4 SECONDS (11.6-15.0)
[2017-06-15 05:25] LABS: ALBUMIN 2.5 g/dL (3.4-5.0); ANION GAP 13.6 mmol/L (8-16); BILIRUBIN - TOTAL 0.19 mg/dL (0.2-1.3); CALCIUM 8.4 mg/dL (8.5-10.1); CARBON DIOXIDE 25.6 mmol/L (21.0-32.0); CREATININE - SERUM 2.7 mg/dL (0.6-1.3); POTASSIUM - SERUM 4.2 mmol/L (3.5-5.1); PROTEIN - SERUM 6.9 g/dL (6.4-8.2)
--- NOTE | 2017-06-15 07:12 | NUR ---
PT IN BED, COLORING, RESP EVEN AND UNLABORED, LT UPPER ARM MIDLINE SL. GILES DRAINING YELLOW URINE TO GRAVITY. PT DENIES ANY NEEDS AT THIS TIME. CALL LIGHT IN REACH, NAD NOTED, WILL CONTINUE PLAN OF CARE.
[2017-06-15 08:00] VITALS: BP 106/62
--- NOTE | 2017-06-15 08:32 | NUR ---
AM MEDS GIVEN AT THIS TIME. PT IN BED, WATCHING, TV, DENIES ANY NEEDS AT THIS TIME. CALL LIGHT IN REACH, NAD NOTED, WILL CONTINUE PLAN OF CARE.
--- NOTE | 2017-06-15 11:11 | NUR ---
BLOOD SUGAR OF 160, 2 UNITS OF HUMALOG GIVEN PER S/S. PT DENIES ANY NEEDS AT THIS TIME. CALL LIGHT IN REACH, NAD NOTED.
[2017-06-15 12:00] VITALS: BP 108/32
--- NOTE | 2017-06-15 15:42 | NUR ---
PT IN BED, WATCHING TV, DENIES ANY NEEDS AT THIS TIME. CALL LIGHT IN REACH, NAD NOTED.
[2017-06-15 16:00] VITALS: BP 121/31
--- NOTE | 2017-06-15 16:09 | NUR ---
PAGED DR. CUMMINS, WAITING ON HER TO CALL BACK.
--- NOTE | 2017-06-15 17:39 | NUR ---
Patient Name: ELSA GARCÍA Admission Status: ER Accout number: [id number] Admission Date: 06-10-2017 : 1950 Admission Diagnosis:FEVER, UNSPECIFIED Attending: MIKKI, Current LOS: 5 Anticipated DC Date: 06-15-2017 Planned Disposition: Home with Home Health Primary Insurance: [facility] PLANNED EXTERNAL PROVIDER: [facility] Discharge Planning Comments: * Is the patient Alert and Oriented? Yes 0 * How many steps to enter\exit or inside your home? RAMP 0 * PCP DR. KAYE 0 * Pharmacy [facility] BY [facility]ACHID ESTRADA 0 * Preadmission Environment Home Alone 0 * ADLs Partial Dependent 0 * Partial ADLs (Assistance needed) Bathing Dressing 0 * Equipment Hospital Bed [place] Lift Trapeze Wheelchair 0 * Other Equipment ELECTRIC WHEELCHAIR ICELANDIC CHESWOLD PATIENT - MEDICAL EQUIPMENT PROVIDER 0 * List name and contact numbers for known caregivers / representatives who currently or will assist patient after discharge: MIGUEL PERALTA, ABE/CAREGIVER, 0 * Community resources currently utilized Home Health 0 * Please name any agencies selected above. [facility] 0 * Additional services required to return to the preadmission environment? Yes * Can the patient safely return to the preadmission environment? Yes 0 * Has this patient been hospitalized within the prior 30 days at any hospital? No 0 CM RECEIVED ORDER FOR HOME INFUSION SERVICES. CM MET WITH PT IN ROOM TO DISCUSS DISCHARGE PLANNING AND NEEDS. PT REPORTS LIVING AT HOME ALONE DEPENDENT ON ABE WHO IS HER PAID CAREGIVER THROUGH [facility], 6 HOURS PER DAY, 7 DAYS PER WEEK. PT REPORTS HAVING ALL NEEDED MEDICAL EQUIPMENT FROM [facility] PATIENT. PT HAS HOME HEALTH WITH [facility] FOR NURSING ONLY AT THIS TIME. CM DISCUSSED AVAILABILITY OF HOME HEALTH, REHAB SERVICES AND MEDICAL EQUIPMENT. PT WANTS TO USE [facility]. PT'S ABE IS CAPABLE OF IV INFUSION THEY HAVE DONE THIS MANY TIMES AT HOME, PT REPORTS SHE NEEDS AN AMBULANCE TO PICK HER UP FOR DISCHARGE HOME. IMPORTANT MESSAGE FROM MEDICARE PROVIDED AND EXPLAINED. CM CALLED [facility] [phone], SPOKE TO HÉCTOR WHO REPORTS ABILITY TO ACCEPT FOR IV INFUSION AND REPORTS PT TO HAVE A TEACHABLE CAREGIVER AT HOME THAT HAS DONE HOME INFUSION BEFORE. CM FAXED REFERRAL TO [facility] AT [phone]. CM CALLED [facility], , SPOKE TO RAI, PROVIDED REFERRAL INFORMATION FOR HOME DELIVERY OF SUPPLIES AND MEDICATION FOR PT TO BEGIN HOME INFUSION TOMORROW, 06-16-17. CM FAXED REFERRAL ELECTRONICALLY AND MANUALLY TO [phone] AND [phone]. FOR DISCHARGE, NOTIFY [facility] AT [phone], FAX DISCHARGE INFORMATION TO [facility] AT [phone]. CM WAITING CONFIRMATION FROM [facility] OF MEDICATION DELIVERY ARRANGEMENTS WITH PT FOR INFUSION TO BEGIN TOMORROW. Composite Technician: Mani Lisa
--- NOTE | 2017-06-15 18:12 | NUR ---
PROVIDED VERBAL AND WRITTEN DISCHARGE TEACHING TO PT, PT VERBALIZED UNDERSTANDING REGARDING TEACHING. GOING HOME ON ANTIBIOTICS MIDLINE IN PLACE TO LT UPPER ARM. 1812- CALLED [facility] AND SPOKE WITH JADYN, [facility] WILL TOURIST INFORMATION OFFICER PT SOON THEY CAN.
--- NOTE | 2017-06-15 19:44 | NUR ---
EMS HERE TO TAKE PT ORDERED R/T D/C. PT HAD A LARGE BM PRIOR TO TRANSPORT, WAS CLEANED, BATHED, NEW GOWN PLACED AND CLEAN LINENS PLACED. EMS TRANSFERRED PT FROM BED TO STRETCHER WITHOUT INCIDENT. PT IS AWAKE, ALERT, ORIENTED, DENIES ANY NEEDS.
--- NOTE | 2017-06-16 09:07 | NUR ---
Patient Name: ELSA GARCÍA Encounter No: [id number] : 1950 Primary Insurance: [employer] Anticipated DC Date: 06-15-2017 Planned Disposition: Home with Home Health External Planned Provider: [facility] DCP follow-up note: CM REVIEWED CHART, PT DISCHARGED HOME LAST NIGHT. CM CALLED [facility], SPOKE TO RAI AT [phone], FAX WAS RECEIVED AFTER HOURS LAST NIGHT AND MEDICATION HAS BEEN COORDINATED FOR DELIVERY TODAY TO PT AT HOME TO START INFUSION SERVICES TODAY. CM CALLED [facility], , SPOKE TO TIANA WHO REPORTS THEY WILL ADMIT TODAY. CM FAXED DISCHARGE INFORMATION TO [facility] AT [phone]. Mani Lisa, CASE MANAGEMENT
[2017-06-17 19:11] LABS: AEROBE ID Final report (())
--- NOTE | 2017-08-04 11:58 | DS ---
PATIENT:ELSA GARCÍA :[birth year] MEDICAL RECORD: [id number] DISCHARGE SUMMARY ADMISSION DATE: 06/10/17 DISCHARGE DATE: 06/15/17 DATE OF ADMISSION: 06/10/2017 DATE OF DISCHARGE: 06/15/2017 DISCHARGE DIAGNOSES: 1. Urinary tract infection. 2. Diabetes mellitus type 2. 3. Chronic kidney disease. 4. Anemia. 5. Functional quadriplegic. 6. Neurogenic bladder. 7. Morbid obesity. 8. Bacteremia due to negative Staphylococcus. CONSULTATION: 1. Mily Cleveland MD 2. Daniela Lucero MD, for the iron deficiency anemia. HOSPITAL COURSE: The full H&P is listed elsewhere in the chart for this quadriplegic patient who is a 66-year-old female who actually is a paraplegic from spinal abscess surgery greater than 15 years ago with a chronic indwelling catheter, who was admitted with a recurrent UTI. She had fever and was lethargic. Several consultants were called in on the case. The patient was started on IV meropenem. The Schaeffer was changed out. Urine cultures were drawn as well as blood cultures. The urine did grow Klebsiella and E. coli and Dr. Cleveland was on the patient's case. Her insulin sliding scale was adjusted for some hypoglycemia. She has some iron deficiency anemia and Dr. Lucero did give intermittent IM. PT and OT did work with the patient as well as Speech for swallow eval for which she passed. Her clinical condition improved. She was thought to be stable to discharge home with midline access care per protocol and home health to administer IV antibiotics. See med rec. TRANSINT:[id number] Voice Confirmation ID: [id number] DOCUMENT ID: [id number] Dictated By: POP CRANE I have interviewed/examined the above patient and agree with these documented findings. ALDO BEAUCHAMP MD at 1114 at 1158 CC: [id number] DICTATION DATE: 07/30/17 0914 DIRECTOR CUSTOMER: 07/31/17 0223 DIS IN 06/15/17 [id number] [place] [address]
== END 2017-06-15 19:46 | disposition home health service (06) | DRG 871 ==
LOC: D.ER 11:32 → D.M2 17:41 → D.SDCHOLD 06-14 15:59 → D.M2 06-14 16:04
PROVIDERS: Emergency Medicine; Nurse Practitioner Family; ADMIT Family Medicine
DX: A41.9 Sepsis, unspecified organism (principal); R53.2 Functional quadriplegia; N39.0 Urinary tract infection, site not specified; K21.9 Gastro-esophageal reflux disease without esophagitis; E78.5 Hyperlipidemia, unspecified; E11.22 Type 2 diabetes mellitus with diabetic chronic kidney disease; I12.9 Hypertensive chronic kidney disease with stage 1 through stage 4 chronic kidney disease, or unspecified chronic kidney disease; N18.9 Chronic kidney disease, unspecified; D63.1 Anemia in chronic kidney disease

== ENCOUNTER → 2017-07-02 09:13 | Outpatient (CLI) | payer MEDICARE, MEDICAID ==
[2017-06-14 14:11] VITALS: BMI 48.0
[~2017-07-02 09:13] MED LIST changes: +BACLOFEN10 MG PO; +FERROUS SULFAT140 MG PO; +IRON; +TYLENOL W/CODEI1 TAB PO; +ZOFRAN4 MG PO
--- NOTE | 2017-07-02 14:16 | NUR ---
1100-SPOKE WITH DR. DODSON, CHEST X-RAY READ WITH CATHETER TIP LOCATED IN [facility] ATRIAL JUNCTION. 1115-SPOKE WITH DR. VALDES ABOUT PLACEMENT OF PICC LINE PER RADIOLOGIST REPORT.
== END | disposition home or self-care (01) ==
LOC: D.OPS 07-01 10:00
DX: D50.9 Iron deficiency anemia, unspecified (principal)

== ENCOUNTER → 2017-07-16 15:41 | Outpatient (CLI) | payer MEDICARE, MEDICAID ==
[2017-06-14 14:11] VITALS: BMI 48.0
== END | disposition home or self-care (01) ==
LOC: D.LABREF 15:41
DX: E87.5 Hyperkalemia (principal)

== ENCOUNTER 2017-07-17 09:51 | Inpatient (IN) | payer MEDICARE, MEDICAID ==
[~2017-07-17] VITALS: Ht 165.1 cm; Wt 131.2 kg
[~2017-07-17 09:51] MED LIST changes: -BACLOFEN10 MG PO; -FERROUS SULFAT140 MG PO; -IRON; -TYLENOL W/CODEI1 TAB PO; -ZOFRAN4 MG PO
[2017-07-17 10:33] LABS: APPEARANCE CLOUDY (CLEAR); BILIRUBIN NEGATIVE (NEGATIVE); COLOR YELLOW (YELLOW); GLUCOSE NEGATIVE (NEGATIVE); KETONE NEGATIVE (NEGATIVE); NITRITE NEGATIVE (NEGATIVE); PROTEIN 3+ mg/dL (NEGATIVE); SPECIFIC GRAVITY 1.015 (1.005-1.020); UROBILINOGEN NORMAL (NORMAL)
[2017-07-17 10:35] LABS: BACTERIA MANY /hpf (NONE SEEN); EPITHELIAL CELLS 0-5 /hpf (0-5); RED CELLS - URINE 0-5 /hpf (0-5); YEAST >1+ WITH HYPHAE /hpf (NONE SEEN)
[2017-07-17 10:45] LABS: BASOPHILS 0.2 % (0-2); EOSINOPHILS 3.7 % (0-7); HEMATOCRIT 29.1 % (36.0-48.0); IMMATURE GRANULOCYTES 0.2 % (0-5); MCH 27.9 pg (26.0-34.0); MCHC 30.9 g/dL (31.0-37.0); MCV 90.1 fL (80.0-100.0); MEAN PLATELET VOLUME 8.7 fL (7.4-10.4); MONOCYTES 2.5 % (2-11); NEUTROPHILS 73.4 % (40-80); PLATELET COUNT 250 10x3/uL (130-400); RBC 3.23 10x6/uL (4.00-5.40); RDW 15.8 % (11.5-14.5)
[2017-07-17 11:08] LABS: ALBUMIN 3.1 g/dL (3.4-5.0); ANION GAP 14.4 mmol/L (8-16); BILIRUBIN - TOTAL 0.2 mg/dL (0.2-1.3); CALCIUM 8.6 mg/dL (8.5-10.1); CARBON DIOXIDE 23.6 mmol/L (21.0-32.0); CREATININE - SERUM 2.7 mg/dL (0.6-1.3); PROTEIN - SERUM 7.2 g/dL (6.4-8.2)
[2017-07-17 11:16] LABS: MAGNESIUM - SERUM 2.3 mg/dL (1.8-2.4); PHOSPHOROUS 3.3 mg/dL (2.5-4.9); THYROID STIMULATING HORMONE 4.39 uIU/mL (0.36-3.74)
[2017-07-17 12:21] LABS: INR 1.41 (0.85-1.17); PROTIME 16.8 SECONDS (11.6-15.0)
[2017-07-17 14:44] VITALS: BP 119/47; BMI 51.0
[2017-07-17] MEDS ORDERED: ROCALTROL0.25 MCG PO (15:33)
[2017-07-17] MEDS ORDERED: FERROUS SULFAT140 MG PO (15:34)
[2017-07-17] MEDS ORDERED: IRON (15:35)
[2017-07-17] MEDS ORDERED: ZOFRAN4 MG PO (15:38)
[2017-07-17] MEDS ORDERED: TYLENOL W/CODEI1 TAB PO (15:39)
[2017-07-17] MEDS ORDERED: OXYBUTYNIN CHLOR5 MG PO (15:40)
[2017-07-17] MEDS ORDERED: BACLOFEN10 MG PO (15:41)
[2017-07-17 21:36] VITALS: BP 129/50
[2017-07-18 01:29] VITALS: BP 125/48
[2017-07-18 10:22] VITALS: BP 134/37
[2017-07-18 11:22] LABS: ANION GAP 16.7 mmol/L (8-16); CALCIUM 8.2 mg/dL (8.5-10.1); CARBON DIOXIDE 21.9 mmol/L (21.0-32.0); CREATININE - SERUM 2.6 mg/dL (0.6-1.3); POTASSIUM - SERUM 4.6 mmol/L (3.5-5.1)
[2017-07-18 14:20] VITALS: BP 147/60
[2017-07-18 16:35] VITALS: BP 137/47
[2017-07-18 20:00] VITALS: BP 153/44
[2017-07-19] VITALS: BP 145/62
[2017-07-19 04:00] VITALS: BP 159/58
[2017-07-19 05:39] LABS: BASOPHILS 0.2 % (0-2); EOSINOPHILS 2.1 % (0-7); HEMATOCRIT 27.6 % (36.0-48.0); HEMOGLOBIN 8.7 g/dL (12-16); IMMATURE GRANULOCYTES 0.5 % (0-5); LYMPHOCYTES 35.6 % (15-50); MCH 28.2 pg (26.0-34.0); MCHC 31.5 g/dL (31.0-37.0); MCV 89.3 fL (80.0-100.0); MEAN PLATELET VOLUME 8.7 fL (7.4-10.4); NEUTROPHILS 55.6 % (40-80); PLATELET COUNT 204 10x3/uL (130-400); RBC 3.09 10x6/uL (4.00-5.40); RDW 16.4 % (11.5-14.5)
[2017-07-19 05:45] LABS: WBC 4.3 10x3/uL (4.8-10.8)
[2017-07-19 05:52] LABS: INR 1.03 (0.85-1.17); PROTIME 13.1 SECONDS (11.6-15.0)
[2017-07-19 05:59] LABS: ANION GAP 16.6 mmol/L (8-16); CALCIUM 8.3 mg/dL (8.5-10.1); CARBON DIOXIDE 20.1 mmol/L (21.0-32.0); CREATININE - SERUM 2.5 mg/dL (0.6-1.3); POTASSIUM - SERUM 4.7 mmol/L (3.5-5.1)
[2017-07-19 06:01] LABS: % SATURATION 5 % (15-55); IRON 13 ug/dl (35-150); TOTAL IRON BIND CAPACITY 252 ug/dl (260-445); UNSAT IRON BIND CAPACITY 239 ug/dl (150-375)
[2017-07-19 08:04] VITALS: BP 162/61
[2017-07-19 12:09] VITALS: BP 134/63
[2017-07-19 13:39] VITALS: Ht 165.1 cm; Wt 131.2 kg
[2017-07-19 16:28] VITALS: BP 122/52
[2017-07-19 20:00] VITALS: BP 141/60
[2017-07-20 04:00] VITALS: BP 119/49
[2017-07-20 07:39] LABS: BASOPHILS 0.2 % (0-2); EOSINOPHILS 4.4 % (0-7); IMMATURE GRANULOCYTES 0.2 % (0-5); LYMPHOCYTES 41.3 % (15-50); MCV 90.1 fL (80.0-100.0); MEAN PLATELET VOLUME 9.1 fL (7.4-10.4); MONOCYTES 5.4 % (2-11); NEUTROPHILS 48.5 % (40-80); PLATELET COUNT 214 10x3/uL (130-400); RBC 3.22 10x6/uL (4.00-5.40); RDW 16.4 % (11.5-14.5); WBC 4.8 10x3/uL (4.8-10.8)
[2017-07-20 07:45] LABS: ALBUMIN 2.6 g/dL (3.4-5.0); ANION GAP 14.7 mmol/L (8-16); BILIRUBIN - TOTAL 0.17 mg/dL (0.2-1.3); CALCIUM 8.5 mg/dL (8.5-10.1); CARBON DIOXIDE 22.9 mmol/L (21.0-32.0); CREATININE - SERUM 2.6 mg/dL (0.6-1.3); MAGNESIUM - SERUM 1.9 mg/dL (1.8-2.4); PHOSPHOROUS 4.8 mg/dL (2.5-4.9); POTASSIUM - SERUM 4.6 mmol/L (3.5-5.1); PROTEIN - SERUM 6.7 g/dL (6.4-8.2)
[2017-07-20 08:14] VITALS: BP 126/52
[2017-07-20 10:19] LABS: FOLATE (FOLIC ACID) - SERUM 6.7 ng/mL (>3.0)
[2017-07-20 12:42] VITALS: BP 141/57
[2017-07-20 16:37] VITALS: BP 134/48
[2017-07-20 20:00] VITALS: BP 143/46
[2017-07-21 04:00] VITALS: BP 140/57
[2017-07-21 08:54] VITALS: BP 127/53
[2017-07-21 12:28] VITALS: BP 104/48
[2017-07-21 16:31] VITALS: BP 118/74
[2017-07-21 21:00] VITALS: BP 92/32
[2017-07-22 01:03] VITALS: BP 125/36
[2017-07-22 06:04] VITALS: BP 112/40
[2017-07-22 06:57] LABS: INR 1.25 (0.85-1.17); PROTIME 15.2 SECONDS (11.6-15.0)
[2017-07-22 08:37] VITALS: BP 109/40
[2017-07-22 12:43] VITALS: BP 134/56
[2017-07-22 16:46] VITALS: BP 118/50
[2017-07-22 22:44] VITALS: BP 132/60
[2017-07-23 00:59] VITALS: BP 107/35
[2017-07-23 05:27] VITALS: BP 111/40
[2017-07-23 08:52] VITALS: BP 126/46
[2017-07-23 12:07] VITALS: BP 142/52
== END 2017-07-23 15:09 | disposition home or self-care (01) | DRG 696 ==
LOC: D.ER 09:51 → D.M2 13:15 → OBSVTIME 14:10 → D.M2 07-18 20:24
PROVIDERS: Emergency Medicine; Internal Medicine Nephrology
DX: R82.71 Bacteriuria (principal); Z68.43 Body mass index [BMI] 50.0-59.9, adult; N18.4 Chronic kidney disease, stage 4 (severe); G82.20 Paraplegia, unspecified; T83.098A Other mechanical complication of other urinary catheter, initial encounter; Y84.6 Urinary catheterization as the cause of abnormal reaction of the patient, or of later complication, without mention of misadventure at the time of the procedure; E66.01 Morbid (severe) obesity due to excess calories; K21.9 Gastro-esophageal reflux disease without esophagitis; E11.22 Type 2 diabetes mellitus with diabetic chronic kidney disease; I12.9 Hypertensive chronic kidney disease with stage 1 through stage 4 chronic kidney disease, or unspecified chronic kidney disease; R41.0 Disorientation, unspecified; Z16.24 Resistance to multiple antibiotics; D64.9 Anemia, unspecified

== ENCOUNTER → 2017-07-26 13:14 | Outpatient (CLI) | payer MEDICARE, MEDICAID ==
[2017-07-19 13:39] VITALS: BMI 49.5
[~2017-07-26 13:14] MED LIST changes: +BACLOFEN10 MG PO; +FERROUS SULFAT140 MG PO; +IRON; +TYLENOL W/CODEI1 TAB PO; +ZOFRAN4 MG PO
[2017-07-26 16:06] LABS: APPEARANCE HAZY (CLEAR); BILIRUBIN NEGATIVE (NEGATIVE); COLOR YELLOW (YELLOW); GLUCOSE NEGATIVE (NEGATIVE); KETONE NEGATIVE (NEGATIVE); NITRITE NEGATIVE (NEGATIVE); PROTEIN TRACE mg/dL (NEGATIVE); UROBILINOGEN NORMAL (NORMAL)
[2017-07-26 16:08] LABS: WHITE CELLS - URINE >50 /hpf (0-5)
[2017-07-26 16:12] LABS: BACTERIA MANY /hpf (NONE SEEN)
== END | disposition home or self-care (01) ==
LOC: D.LABREF 13:14
PROVIDERS: Family Medicine
DX: E11.65 Type 2 diabetes mellitus with hyperglycemia (principal)

== ENCOUNTER → 2017-08-18 15:05 | Outpatient (CLI) | payer MEDICARE, MEDICAID ==
[2017-07-19 13:39] VITALS: BMI 49.5
== END | disposition home or self-care (01) ==
LOC: D.LABREF 15:05
DX: D72.829 Elevated white blood cell count, unspecified (principal)

== ENCOUNTER 2017-09-16 11:38 | Inpatient (IN) | payer MEDICARE, MEDICAID ==
[~2017-09-16] VITALS: Ht 165.1 cm; Wt 81.6 kg
[2017-09-16 12:29] LABS: BASOPHILS 0.5 % (0-2); EOSINOPHILS 3.9 % (0-7); HEMATOCRIT 29.5 % (36.0-48.0); IMMATURE GRANULOCYTES 0.2 % (0-5); LYMPHOCYTES 19.8 % (15-50); MCH 27.8 pg (26.0-34.0); MCHC 30.5 g/dL (31.0-37.0); MEAN PLATELET VOLUME 9.7 fL (7.4-10.4); MONOCYTES 3.9 % (2-11); NEUTROPHILS 71.7 % (40-80); PLATELET COUNT 222 10x3/uL (130-400); RBC 3.24 10x6/uL (4.00-5.40); RDW 17.8 % (11.5-14.5); WBC 6.5 10x3/uL (4.8-10.8)
[2017-09-16 12:50] LABS: ALBUMIN 2.9 g/dL (3.4-5.0); ANION GAP 17.5 mmol/L (8-16); BILIRUBIN - TOTAL 0.25 mg/dL (0.2-1.3); CALCIUM 8.8 mg/dL (8.5-10.1); CARBON DIOXIDE 21.3 mmol/L (21.0-32.0); CREATININE - SERUM 2.9 mg/dL (0.6-1.3); POTASSIUM - SERUM 4.8 mmol/L (3.5-5.1); PROTEIN - SERUM 7.3 g/dL (6.4-8.2)
[2017-09-16 13:27] LABS: INR 4.01 (0.85-1.17); PROTIME 38.2 SECONDS (11.6-15.0)
[2017-09-16 16:09] LABS: APPEARANCE HAZY (CLEAR); BILIRUBIN NEGATIVE (NEGATIVE); COLOR RED (YELLOW); GLUCOSE NEGATIVE (NEGATIVE); KETONE NEGATIVE (NEGATIVE); NITRITE NEGATIVE (NEGATIVE); PROTEIN 1+ mg/dL (NEGATIVE); SPECIFIC GRAVITY 1.015 (1.005-1.020); UROBILINOGEN NORMAL (NORMAL)
[2017-09-16 16:10] LABS: BACTERIA MANY /hpf (NONE SEEN); EPITHELIAL CELLS 0-5 /hpf (0-5); RED CELLS - URINE >50 /hpf (0-5); WHITE CELLS - URINE 25-50 /hpf (0-5)
[2017-09-17 01:32] VITALS: BP 147/61
[2017-09-17 04:00] VITALS: BP 114/41
[2017-09-17 05:05] LABS: BASOPHILS 0.4 % (0-2); EOSINOPHILS 3.6 % (0-7); HEMATOCRIT 27.2 % (36.0-48.0); HEMOGLOBIN 8.4 g/dL (12-16); IMMATURE GRANULOCYTES 0.4 % (0-5); LYMPHOCYTES 25.8 % (15-50); MCH 27.7 pg (26.0-34.0); MCHC 30.9 g/dL (31.0-37.0); MCV 89.8 fL (80.0-100.0); MEAN PLATELET VOLUME 9.5 fL (7.4-10.4); MONOCYTES 5.4 % (2-11); NEUTROPHILS 64.4 % (40-80); PLATELET COUNT 211 10x3/uL (130-400); RBC 3.03 10x6/uL (4.00-5.40); RDW 17.8 % (11.5-14.5); WBC 5.6 10x3/uL (4.8-10.8)
[2017-09-17 05:08] LABS: INR 3.85 (0.85-1.17)
[2017-09-17 05:09] LABS: ANION GAP 17.3 mmol/L (8-16); CALCIUM 8.4 mg/dL (8.5-10.1); CARBON DIOXIDE 20.7 mmol/L (21.0-32.0); CREATININE - SERUM 3.2 mg/dL (0.6-1.3)
[2017-09-17 07:44] VITALS: BP 154/52
[2017-09-17 12:21] VITALS: BP 132/55
[2017-09-17 13:50] VITALS: BMI 29.9
[2017-09-17 15:55] VITALS: BP 138/55
[2017-09-17 20:00] VITALS: BP 158/61
[2017-09-18 03:56] LABS: BASOPHILS 0.5 % (0-2); EOSINOPHILS 2.9 % (0-7); HEMATOCRIT 26.5 % (36.0-48.0); HEMOGLOBIN 8.3 g/dL (12-16); IMMATURE GRANULOCYTES 0.2 % (0-5); LYMPHOCYTES 28.8 % (15-50); MCH 27.7 pg (26.0-34.0); MCHC 31.3 g/dL (31.0-37.0); MCV 88.3 fL (80.0-100.0); MEAN PLATELET VOLUME 9.2 fL (7.4-10.4); MONOCYTES 5.6 % (2-11); PLATELET COUNT 204 10x3/uL (130-400); RDW 17.3 % (11.5-14.5); WBC 6.3 10x3/uL (4.8-10.8)
[2017-09-18 04:00] VITALS: BP 147/50
[2017-09-18 04:00] LABS: INR 1.9 (0.85-1.17); PROTIME 21.2 SECONDS (11.6-15.0)
[2017-09-18 04:03] LABS: ALBUMIN 2.5 g/dL (3.4-5.0); BILIRUBIN - TOTAL 0.28 mg/dL (0.2-1.3); CALCIUM 8.4 mg/dL (8.5-10.1); CARBON DIOXIDE 20.2 mmol/L (21.0-32.0); CREATININE - SERUM 3.3 mg/dL (0.6-1.3); PHOSPHOROUS 5.8 mg/dL (2.5-4.9); POTASSIUM - SERUM 5.2 mmol/L (3.5-5.1); PROTEIN - SERUM 6.7 g/dL (6.4-8.2)
[2017-09-18 08:15] VITALS: BP 154/51
[2017-09-18 09:11] LABS: CREATININE - URINE 36.1 mg/dL (30-125); PROTEIN - URINE 84.7 mg/dL (0.0-11.9)
[2017-09-18 13:04] VITALS: BP 156/60
[2017-09-18 15:58] VITALS: BP 146/55
[2017-09-18 21:57] VITALS: BP 134/59
[2017-09-19 00:57] VITALS: BP 136/58
[2017-09-19 05:45] VITALS: BP 138/54
[2017-09-19 06:04] LABS: BASOPHILS 0.3 % (0-2); EOSINOPHILS 3.8 % (0-7); HEMATOCRIT 28.7 % (36.0-48.0); HEMOGLOBIN 8.9 g/dL (12-16); IMMATURE GRANULOCYTES 0.1 % (0-5); LYMPHOCYTES 22.8 % (15-50); MCH 27.4 pg (26.0-34.0); MCV 88.3 fL (80.0-100.0); MEAN PLATELET VOLUME 9.2 fL (7.4-10.4); MONOCYTES 5.6 % (2-11); NEUTROPHILS 67.4 % (40-80); PLATELET COUNT 230 10x3/uL (130-400); RBC 3.25 10x6/uL (4.00-5.40); RDW 17.1 % (11.5-14.5); WBC 6.8 10x3/uL (4.8-10.8)
[2017-09-19 06:29] LABS: INR 1.37 (0.85-1.17); PROTIME 16.4 SECONDS (11.6-15.0)
[2017-09-19 06:32] LABS: ALBUMIN 2.7 g/dL (3.4-5.0); ANION GAP 17.9 mmol/L (8-16); BILIRUBIN - TOTAL 0.2 mg/dL (0.2-1.3); CALCIUM 8.2 mg/dL (8.5-10.1); CARBON DIOXIDE 19.3 mmol/L (21.0-32.0); POTASSIUM - SERUM 5.2 mmol/L (3.5-5.1)
[2017-09-19 09:16] VITALS: BP 134/57
[2017-09-19 12:08] VITALS: BP 136/62
[2017-09-19 16:07] VITALS: BP 135/47
[2017-09-19 23:18] VITALS: BP 124/39
[2017-09-20 04:00] VITALS: BP 136/49
[2017-09-20 05:38] LABS: BASOPHILS 0.3 % (0-2); EOSINOPHILS 4.7 % (0-7); HEMATOCRIT 28.2 % (36.0-48.0); HEMOGLOBIN 8.4 g/dL (12-16); IMMATURE GRANULOCYTES 0.2 % (0-5); LYMPHOCYTES 29.2 % (15-50); MCH 26.8 pg (26.0-34.0); MCHC 29.8 g/dL (31.0-37.0); MCV 89.8 fL (80.0-100.0); MEAN PLATELET VOLUME 9.4 fL (7.4-10.4); MONOCYTES 4.7 % (2-11); NEUTROPHILS 60.9 % (40-80); PLATELET COUNT 236 10x3/uL (130-400); RBC 3.14 10x6/uL (4.00-5.40); WBC 6.4 10x3/uL (4.8-10.8)
[2017-09-20 05:49] LABS: INR 1.19 (0.85-1.17); PROTIME 14.7 SECONDS (11.6-15.0)
[2017-09-20 08:25] VITALS: BP 154/61
[2017-09-20 14:08] VITALS: BP 160/58
[2017-09-20 16:47] VITALS: BP 139/60
[2017-09-20 20:00] VITALS: BP 134/56
[2017-09-21 04:00] VITALS: BP 128/47
[2017-09-21 06:27] LABS: BASOPHILS 0.5 % (0-2); EOSINOPHILS 4.6 % (0-7); HEMATOCRIT 27.9 % (36.0-48.0); HEMOGLOBIN 8.5 g/dL (12-16); IMMATURE GRANULOCYTES 0.2 % (0-5); LYMPHOCYTES 26.8 % (15-50); MCH 27.5 pg (26.0-34.0); MCHC 30.5 g/dL (31.0-37.0); MCV 90.3 fL (80.0-100.0); MEAN PLATELET VOLUME 9.7 fL (7.4-10.4); MONOCYTES 4.6 % (2-11); NEUTROPHILS 63.3 % (40-80); PLATELET COUNT 237 10x3/uL (130-400); RBC 3.09 10x6/uL (4.00-5.40); RDW 16.8 % (11.5-14.5); WBC 6.5 10x3/uL (4.8-10.8)
[2017-09-21 06:35] LABS: INR 1.25 (0.85-1.17); PROTIME 15.2 SECONDS (11.6-15.0)
[2017-09-21 09:39] VITALS: BP 156/66
[2017-09-21 12:02] VITALS: BP 141/52
[2017-09-21 14:49] VITALS: Ht 165.1 cm; Wt 81.6 kg
[2017-09-21] MEDS ORDERED: MERREM 500 MG/500 MG IV (15:46)
[2017-09-21 16:17] VITALS: BP 159/53
== END 2017-09-21 18:57 | disposition home health service (06) | DRG 689 ==
LOC: D.ER 11:38 → D.MS 17:04 → D.EDHOLD 17:04 → D.MS 22:28
PROVIDERS: Emergency Medicine; Internal Medicine; Nurse Practitioner Family
DX: N30.91 Cystitis, unspecified with hematuria (principal); R53.2 Functional quadriplegia; G82.20 Paraplegia, unspecified; N18.4 Chronic kidney disease, stage 4 (severe); Z68.42 Body mass index [BMI] 45.0-49.9, adult; D63.1 Anemia in chronic kidney disease; E11.22 Type 2 diabetes mellitus with diabetic chronic kidney disease; I12.9 Hypertensive chronic kidney disease with stage 1 through stage 4 chronic kidney disease, or unspecified chronic kidney disease; N93.9 Abnormal uterine and vaginal bleeding, unspecified; E66.01 Morbid (severe) obesity due to excess calories; Z86.718 Personal history of other venous thrombosis and embolism; Z79.01 Long term (current) use of anticoagulants; R32 Unspecified urinary incontinence; N95.9 Unspecified menopausal and perimenopausal disorder; B96.1 Klebsiella pneumoniae [K. pneumoniae] as the cause of diseases classified elsewhere; E78.5 Hyperlipidemia, unspecified; G25.81 Restless legs syndrome; K21.9 Gastro-esophageal reflux disease without esophagitis; Z79.4 Long term (current) use of insulin

== ENCOUNTER 2017-09-29 10:52 | Inpatient (IN) | payer MEDICARE, MEDICAID ==
[~2017-09-29] VITALS: Ht 165.1 cm; Wt 140.0 kg
[~2017-09-29 10:52] MED LIST changes: +MERREM 500 MG/500 MG IV
[2017-09-29 12:03] LABS: BASOPHILS 0.2 % (0-2); EOSINOPHILS 5.4 % (0-7); HEMATOCRIT 31.2 % (36.0-48.0); HEMOGLOBIN 9.5 g/dL (12-16); IMMATURE GRANULOCYTES 0.2 % (0-5); LYMPHOCYTES 26.5 % (15-50); MCH 27.6 pg (26.0-34.0); MCHC 30.4 g/dL (31.0-37.0); MCV 90.7 fL (80.0-100.0); MEAN PLATELET VOLUME 9.1 fL (7.4-10.4); MONOCYTES 5.7 % (2-11); PLATELET COUNT 231 10x3/uL (130-400); RBC 3.44 10x6/uL (4.00-5.40); RDW 16.9 % (11.5-14.5)
[2017-09-29 12:32] LABS: ALBUMIN 2.5 g/dL (3.4-5.0); ANION GAP 17.5 mmol/L (8-16); BILIRUBIN - TOTAL 0.21 mg/dL (0.2-1.3); CALCIUM 7.8 mg/dL (8.5-10.1); CARBON DIOXIDE 20.4 mmol/L (21.0-32.0); CREATININE - SERUM 2.9 mg/dL (0.6-1.3); POTASSIUM - SERUM 4.9 mmol/L (3.5-5.1); PROTEIN - SERUM 6.5 g/dL (6.4-8.2)
[2017-09-29 12:35] LABS: APPEARANCE TURBID (CLEAR); BILIRUBIN NEGATIVE (NEGATIVE); COLOR YELLOW (YELLOW); GLUCOSE NEGATIVE (NEGATIVE); KETONE NEGATIVE (NEGATIVE); NITRITE NEGATIVE (NEGATIVE); PROTEIN 2+ mg/dL (NEGATIVE); SPECIFIC GRAVITY 1.015 (1.005-1.020); UROBILINOGEN NORMAL (NORMAL)
[2017-09-29 12:36] LABS: MAGNESIUM - SERUM 2.4 mg/dL (1.8-2.4); THYROID STIMULATING HORMONE 2.38 uIU/mL (0.36-3.74)
[2017-09-29 12:38] LABS: BACTERIA MODERATE /hpf (NONE SEEN); EPITHELIAL CELLS 0-5 /hpf (0-5); MUCUS <1+ /lpf (NONE SEEN); RED CELLS - URINE 0-5 /hpf (0-5); WHITE CELLS - URINE >50 /hpf (0-5); YEAST >1+ /hpf (NONE SEEN)
[2017-09-29 19:00] VITALS: BP 154/84
[2017-09-30 02:33] VITALS: BP 133/43
[2017-09-30 06:02] VITALS: BP 139/47
[2017-09-30 06:08] LABS: BASOPHILS 0.3 % (0-2); EOSINOPHILS 4.8 % (0-7); HEMATOCRIT 28.2 % (36.0-48.0); HEMOGLOBIN 8.5 g/dL (12-16); IMMATURE GRANULOCYTES 0.2 % (0-5); LYMPHOCYTES 30.6 % (15-50); MCH 27.4 pg (26.0-34.0); MCHC 30.1 g/dL (31.0-37.0); MEAN PLATELET VOLUME 9.3 fL (7.4-10.4); MONOCYTES 6.2 % (2-11); NEUTROPHILS 57.9 % (40-80); PLATELET COUNT 240 10x3/uL (130-400); RDW 16.8 % (11.5-14.5); WBC 5.8 10x3/uL (4.8-10.8)
[2017-09-30 06:19] LABS: ANION GAP 14.9 mmol/L (8-16); CALCIUM 7.7 mg/dL (8.5-10.1); CARBON DIOXIDE 21.9 mmol/L (21.0-32.0); POTASSIUM - SERUM 4.8 mmol/L (3.5-5.1)
[2017-09-30 08:14] VITALS: BP 125/60
[2017-09-30 10:33] VITALS: Ht 165.1 cm; Wt 140.0 kg
[2017-09-30 11:29] VITALS: BP 132/64
[2017-09-30 15:16] VITALS: BP 139/64
[2017-09-30 16:04] LABS: COLOR STRAW (YELLOW)
[2017-09-30 16:05] LABS: APPEARANCE CLOUDY (CLEAR); BACTERIA MANY /hpf (NONE SEEN); BILIRUBIN NEGATIVE (NEGATIVE); EPITHELIAL CELLS OCC /hpf (0-5); GLUCOSE 100 mg/dL (NEGATIVE); KETONE NEGATIVE (NEGATIVE); NITRITE NEGATIVE (NEGATIVE); PROTEIN 3+ mg/dL (NEGATIVE); SPECIFIC GRAVITY 1.015 (1.005-1.020); UROBILINOGEN NORMAL (NORMAL); WHITE CELLS - URINE 25-50 /hpf (0-5); YEAST NONE SEEN /hpf (NONE SEEN)
[2017-09-30 22:47] VITALS: BP 173/54
[2017-10-01 05:31] LABS: BASOPHILS 0.2 % (0-2); EOSINOPHILS 3.7 % (0-7); HEMATOCRIT 27.3 % (36.0-48.0); HEMOGLOBIN 8.5 g/dL (12-16); LYMPHOCYTES 33.5 % (15-50); MCH 27.6 pg (26.0-34.0); MCHC 31.1 g/dL (31.0-37.0); MEAN PLATELET VOLUME 9.3 fL (7.4-10.4); MONOCYTES 5.9 % (2-11); NEUTROPHILS 56.7 % (40-80); PLATELET COUNT 223 10x3/uL (130-400); RBC 3.08 10x6/uL (4.00-5.40); RDW 16.5 % (11.5-14.5); WBC 5.4 10x3/uL (4.8-10.8)
[2017-10-01 05:39] LABS: MCV 88.6 fL (80.0-100.0)
[2017-10-01 05:47] LABS: ANION GAP 16.9 mmol/L (8-16); CALCIUM 7.6 mg/dL (8.5-10.1); CARBON DIOXIDE 19.5 mmol/L (21.0-32.0); CREATININE - SERUM 2.8 mg/dL (0.6-1.3); POTASSIUM - SERUM 4.4 mmol/L (3.5-5.1)
[2017-10-01 05:48] LABS: INR 1.38 (0.85-1.17); PROTIME 16.5 SECONDS (11.6-15.0)
[2017-10-01 06:39] VITALS: BP 142/49
[2017-10-01 08:27] VITALS: BP 144/52
[2017-10-01 10:58] VITALS: BP 136/68
[2017-10-01 14:46] VITALS: BP 133/76
[2017-10-01 19:00] VITALS: BP 155/60
[2017-10-02 04:00] VITALS: BP 167/64
[2017-10-02 05:39] LABS: BASOPHILS 0.2 % (0-2); EOSINOPHILS 2.9 % (0-7); HEMATOCRIT 27.9 % (36.0-48.0); HEMOGLOBIN 8.7 g/dL (12-16); LYMPHOCYTES 24.4 % (15-50); MCH 27.1 pg (26.0-34.0); MCHC 31.2 g/dL (31.0-37.0); MCV 86.9 fL (80.0-100.0); MEAN PLATELET VOLUME 9.3 fL (7.4-10.4); NEUTROPHILS 68.5 % (40-80); PLATELET COUNT 212 10x3/uL (130-400); RBC 3.21 10x6/uL (4.00-5.40); WBC 6.5 10x3/uL (4.8-10.8)
[2017-10-02 05:55] LABS: ANION GAP 17.1 mmol/L (8-16); CARBON DIOXIDE 19.1 mmol/L (21.0-32.0); CREATININE - SERUM 2.4 mg/dL (0.6-1.3); POTASSIUM - SERUM 4.2 mmol/L (3.5-5.1)
[2017-10-02 09:03] VITALS: BP 188/60
[2017-10-02 11:55] VITALS: BP 165/63
[2017-10-02 16:00] VITALS: BP 174/56
[2017-10-02 21:44] VITALS: BP 146/53
[2017-10-03 00:30] VITALS: BP 150/51
[2017-10-03 04:30] VITALS: BP 153/45
[2017-10-03 05:27] LABS: BASOPHILS 0.3 % (0-2); EOSINOPHILS 3.7 % (0-7); HEMATOCRIT 26.9 % (36.0-48.0); HEMOGLOBIN 8.3 g/dL (12-16); IMMATURE GRANULOCYTES 0.2 % (0-5); LYMPHOCYTES 26.5 % (15-50); MCH 26.6 pg (26.0-34.0); MCHC 30.9 g/dL (31.0-37.0); MCV 86.2 fL (80.0-100.0); MEAN PLATELET VOLUME 9.5 fL (7.4-10.4); MONOCYTES 3.9 % (2-11); NEUTROPHILS 65.4 % (40-80); PLATELET COUNT 227 10x3/uL (130-400); RBC 3.12 10x6/uL (4.00-5.40); RDW 15.9 % (11.5-14.5); WBC 5.9 10x3/uL (4.8-10.8)
[2017-10-03 05:38] LABS: ANION GAP 14.5 mmol/L (8-16); CARBON DIOXIDE 22.3 mmol/L (21.0-32.0); CREATININE - SERUM 2.4 mg/dL (0.6-1.3); POTASSIUM - SERUM 3.8 mmol/L (3.5-5.1)
[2017-10-03 09:21] VITALS: BP 153/79
[2017-10-03 13:50] VITALS: BP 125/46
[2017-10-03 16:59] VITALS: BP 142/73
[2017-10-03 20:30] VITALS: BP 147/50
[2017-10-04 00:30] VITALS: BP 149/61
[2017-10-04 04:30] VITALS: BP 154/76
[2017-10-04 05:26] LABS: BASOPHILS 0.3 % (0-2); EOSINOPHILS 4.4 % (0-7); HEMATOCRIT 27.6 % (36.0-48.0); HEMOGLOBIN 8.6 g/dL (12-16); IMMATURE GRANULOCYTES 0.3 % (0-5); LYMPHOCYTES 27.3 % (15-50); MCH 26.8 pg (26.0-34.0); MCHC 31.2 g/dL (31.0-37.0); MEAN PLATELET VOLUME 9.3 fL (7.4-10.4); NEUTROPHILS 62.7 % (40-80); PLATELET COUNT 229 10x3/uL (130-400); RBC 3.21 10x6/uL (4.00-5.40); RDW 15.7 % (11.5-14.5); WBC 6.6 10x3/uL (4.8-10.8)
[2017-10-04 05:30] LABS: CALCIUM 8.1 mg/dL (8.5-10.1); CREATININE - SERUM 2.3 mg/dL (0.6-1.3)
[2017-10-04 08:34] VITALS: BP 161/68
[2017-10-04 11:39] VITALS: BP 152/52
[2017-10-04] MEDS ORDERED: DIFLUCAN100 MG PO (12:07)
== END 2017-10-04 15:18 | disposition home health service (06) | DRG 757 ==
LOC: D.ER 10:52 → D.M2 17:31 → D.EDHOLD 17:31 → D.MS 18:50 → D.M2 18:50
PROVIDERS: Emergency Medicine; Family Medicine Adult Medicine; Student in an Organized Health Care Education/Training Program
PROC: 0T9B70Z Drainage of Bladder with Drainage Device, Via Natural or Artificial Opening (ICD-10-PCS; principal; 2017-09-29)
DX: B37.49 Other urogenital candidiasis (principal); G93.41 Metabolic encephalopathy; R53.2 Functional quadriplegia; N18.4 Chronic kidney disease, stage 4 (severe); Z68.44 Body mass index [BMI] 60.0-69.9, adult; E11.22 Type 2 diabetes mellitus with diabetic chronic kidney disease; I12.9 Hypertensive chronic kidney disease with stage 1 through stage 4 chronic kidney disease, or unspecified chronic kidney disease; K21.9 Gastro-esophageal reflux disease without esophagitis; G25.81 Restless legs syndrome; N31.9 Neuromuscular dysfunction of bladder, unspecified; E66.01 Morbid (severe) obesity due to excess calories; D63.1 Anemia in chronic kidney disease; N30.80 Other cystitis without hematuria; E86.0 Dehydration

== ENCOUNTER → 2017-10-20 10:48 | Outpatient (CLI) | payer MEDICARE, MEDICAID ==
[2017-09-30 10:33] VITALS: BMI 47.9
[~2017-10-20 10:48] MED LIST changes: +DIFLUCAN100 MG PO
[2017-10-20 14:07] LABS: APPEARANCE TURBID (CLEAR); BACTERIA MANY /hpf (NONE SEEN); BILIRUBIN NEGATIVE (NEGATIVE); COLOR YELLOW (YELLOW); EPITHELIAL CELLS 0-5 /hpf (0-5); GLUCOSE NEGATIVE (NEGATIVE); KETONE NEGATIVE (NEGATIVE); MUCUS <1+ /lpf (NONE SEEN); NITRITE NEGATIVE (NEGATIVE); PROTEIN 1+ mg/dL (NEGATIVE); RED CELLS - URINE 0-5 /hpf (0-5); SPECIFIC GRAVITY 1.015 (1.005-1.020); UROBILINOGEN NORMAL (NORMAL); WHITE CELLS - URINE >50 /hpf (0-5)
== END | disposition home or self-care (01) ==
LOC: D.LABREF 10:48
PROVIDERS: Family Medicine
DX: R82.90 Unspecified abnormal findings in urine (principal)

== ENCOUNTER 2017-11-04 18:17 | Emergency (ER) | payer MEDICARE, MEDICAID ==
[2017-09-30 10:33] VITALS: BMI 47.9
== END 2017-11-04 21:14 | disposition home or self-care (01) ==
LOC: D.ER 18:17
DX: J06.9 Acute upper respiratory infection, unspecified (principal)

== ENCOUNTER → 2018-01-04 13:16 | Outpatient (CLI) | payer MEDICARE ==
[2017-09-30 10:33] VITALS: BMI 47.9
== END | disposition home or self-care (01) ==
LOC: D.CT 12-28 13:30
DX: R22.9 Localized swelling, mass and lump, unspecified (principal)

== ENCOUNTER 2018-05-10 16:26 | Inpatient (IN) | payer MEDICARE ==
[~2018-05-10] VITALS: Ht 165.1 cm; Wt 125.2 kg
--- NOTE | ~2018-05-10 | MORECARE ---
CASE MANAGEMENT DISCHARGE SUMMARY PATIENT: ELSA GARCÍA UNIT: [id number] ADM DATE: 05/10/18 AGE: 67 : [birth year] SEX: F ROOM/BED: D.1615 AUTHOR: MATHEW,DOC PHYSICIAN: REFERRING PHYSICIAN: LACHELLE POSADA MD DATE OF SERVICE: 05/19/18 Discharge Plan Patient Name: ELSA GARCÍA Facility: [facility]:[place] : 1950 Planned Disposition: Nursing Facility WIL Cert Anticipated Discharge Date: 05/19/18 Discharge Date: Expected LOS: 9 Initial Reviewer: [id number] Initial Review Date: 05/13/2018 Generated: 05/19/18 9:31 am Comments DCP- Discharge Planning Updated by [id number]: Mani Lisa on 05/19/18 7:[address] Patient Name: ELSA GARCÍA Encounter No: [id number] : 1950 Primary Insurance: [facility] MEDICARE SOLUTIONS Anticipated DC Date: 05-19-2018 Planned Disposition: Nursing Facility [facility] Cert External Planned Provider: [facility], LONG TERM CARE MEDICAID BED DCP follow-up note: CM FAXED UPDATE TO NICOLA AT [facility], . FOR DISCHARGE, FAX DISCHARGE INFORMATION TO THE [facility], , NURSE REPORT TO BE CALLED TO THE [facility] AT [phone]. PT TO TRANSPORT VIA AMBULANCE. Ground Equipment Mechanic: Mani Lisa DCP- Discharge Planning Updated by [id number]: Mani Lisa on 05/18/18 3:[address] Patient Name: ELSA GARCÍA Encounter No: [id number] : 1950 Primary Insurance: [facility] MEDICARE SOLUTIONS Anticipated DC Date: Planned Disposition: Nursing Facility [facility] Cert External Planned Provider: [facility], LONG TERM CARE MEDICAID BED DCP follow-up note: CM MET WITH ORALIA KATHRYN, SISTER/POA, [place] [phone]. ORALIA REPORTS PT IS GETTING A LARGE SUM OF MONEY FOR INHERITANCE AND THEY ARE FIXING UP PT'S HOME AND IF ABLE IN THE FUTURE, WILL TAKE PT HOME WITH CAREGIVERS IF PT EVER CLEARS MENTALLY ENOUGH TO DO SO. ORALIA HAS MET WITH CHIPS SCREEN TENDER REGARDING PT'S CARE AND FINANCES. PT WILL RETURN TO THE [facility] AT DISCHARGE. PT ENDED UP IN THE [facility] AFTER ADULT PROTECTIVE SERVICES BECAME INVOLVED BUT DID NOT TAKE AN HOLD, ORALIA BECAME POWER OF CHIPS SCREEN TENDER AND ASSISTED WITH PLACEMENT AT THE [facility]. FOR DISCHARGE, FAX DISCHARGE INFORMATION TO THE [facility], , NURSE REPORT TO BE CALLED TO THE [facility] AT [phone]. PT TO TRANSPORT VIA AMBULANCE. Ground Equipment Mechanic: Mani Lisa DCP- Discharge Planning Updated by [id number]: Mani Lisa on 05/17/18 3:[address] Patient Name: ELSA GARCÍA Admission Status: ER Accout number: [id number] Admission Date: 05-10-2018 : 1950 Admission Diagnosis:URINARY TRACT INFECTION, SITE NOT SPECIFIED Attending: LACHELLE POSADA Current LOS: 7 Anticipated DC Date: Planned Disposition: Nursing Facility [facility] Primary Insurance: [facility] MEDICARE SOLUTIONS PLANNED EXTERNAL PROVIDER: [facility]URSING AND [facility] SWITCH REPAIRER CARE MEDICAID BED Discharge Planning Comments: CM SPOKE TO BEDSIDE NURSE WHO INFORMED CM THAT SHE BELIEVES PT LIVES AT THE [facility]. CM SPOKE TO NICOLA OF [facility], , WHO VERIFIED PT IS IN SWITCH REPAIRER CARE AT THE [facility]. CM SPOKE TO PT IN ROOM WHO INITIALLY STATES NO, SHE DOES NOT LIVE THERE AND THEN CLARIFIED, SHE IS STAYING THERE SHORT TERM AND IS NOT RECEIVIING ANY PHYSICAL THERAPY SERVICES. PT IN AGREEMENT WITH RETURN TO THE [facility] AT DISCHARGE. CM NOTIFIED NICOLA OF [facility]. CM FAXED UPDATE TO THE [facility] VIA [facility] AT [phone]. CM CALLED ALLIE AT [facility], CANCELLED HOME HEALTH REFERRAL. FOR DISCHARGE, FAX DISCHARGE INFORMATION TO THE [facility], , NURSE REPORT TO BE CALLED TO THE [facility] AT [phone]. PT TO TRANSPORT VIA AMBULANCE. Ground Equipment Mechanic: Mani Lisa DCP- Discharge Planning Updated by [id number]: Mani Lisa on 05/17/18 9:[address] Patient Name: ELSA GARCÍA Encounter No: [id number] : 1950 Primary Insurance: [facility] MEDICARE SOLUTIONS Anticipated DC Date: Planned Disposition: Home with Home Health External Planned Provider: [facility] DCP follow-up note: CM MET WITH PT IN ROOM TO DISCUSS DISCHARGE NEEDS AND PLANNING. CM DISCUSSED AVAILABILITY OF HOME HEALTH, REHAB SERVICES AND MEDICAL EQUIPMENT. PT DENIES NEED FOR REHAB PLACEMENT, PLANS TO RETURN HOME AT DISCHARGE WITH [facility] PREVIOUSLY DISCUSSED. AMBULANCE TO TRANSPORT HOME AT DISCHARGE. IMPORTANT MESSAGE FROM MEDICARE PROVIDED AND EXPLAINED. CM CALLED [facility], , SPOKE TO ALLIE WHO TOOK REFERRAL INFORMATION, [facility] IS IN NETWORK WITH PT'S INSURANCE. CM FAXED REFERRAL FOR HOME HEALTH TO [facility] AT [phone]. CM WAITING COMPLETION OF PHYSICAL THERAPY EVALUATION AND WOUND CARE CONSULT TO OBTAIN SPECIFIC HOME HEALTH ORDERS FROM PHYSICIAN. FOR DISCHARGE, CM WILL NEED SPECIFIC HOME HEALTH ORDERS AND TO NOTIFY [facility] AT [phone]; FAX DISCHARGE INFORMATION TO [facility] AT [phone]. Mani Lisa, CASE MANAGEMENT DCP- Discharge Planning Updated by [id number]: Mani Lisa on 05/13/18 2:[address] Patient Name: ELSA GARCÍA Admission Status: ER Accout number: [id number] Admission Date: 05-10-2018 : 1950 Admission Diagnosis:URINARY TRACT INFECTION, SITE NOT SPECIFIED Attending: LACHELLE POSADA Current LOS: 3 Anticipated DC Date: Planned Disposition: Home with Home Health Primary Insurance: [facility] MEDICARE SOLUTIONS PLANNED EXTERNAL PROVIDER: [facility] Discharge Planning Comments: CM MET WITH PT IN ROOM TO DISCUSS DISCHARGE PLANNING AND NEEDS. PT REPORTS LIVING AT HOME DEPENDENTLY ON CAREGIVER SERVICES FROM HER NIECE WHO IS PAID BY MEDICAID. PT HAS ASSISTANCE WITH TRANSFERS TO HER WHEELCHAIR AND THEN PT IS ABLE TO GET AROUND THE HOUSE. PT REPORTS HAVING HOSPITAL BED, NICK LIFT, POWER SCOOTER, WHEELCHAIR ALL PROVIDED BY [facility] PATIENT. PT HAS NO NO OTHER OUTSIDE SERVICES ASSISTING IN THE HOME AT THIS TIME. CM DISCUSSED AVAILABILITY OF HOME HEALTH, REHAB SERVICES AND MEDICAL EQUIPMENT. PT REPORTS HAVING HOME HEALTH WITH [facility] IN THE [facility] AND THINKS SHE MAY NEED HOME HEALTH AT DISCHARGE AGAIN. PT SIGNED CHOICE FOR [facility]. PT REPORTS NEEDING AMBULANCE FOR DISCHARGE HOME. IMPORTANT MESSAGE FROM MEDICARE PROVIDED AND EXPLAINED. CM TO ARRANGE HOME HEALTH WITH [facility], , IF NEEDED AND WITH DOCTOR AGREEMENT AND SPECIFIC HOME HEALTH ORDERS. CM TO FOLLOW AND ASSIST NEEDED. Ground Equipment Mechanic: Mani Lisa DCPIA - Discharge Planning Initial Assessment Updated by AVA: Mani Lisa on 05/18/18 4:54 pm * Is the patient Alert and Oriented? Yes * How many steps to enter\exit or inside your home? NONE * PCP DR. AZUL * Pharmacy [facility] * Preadmission Environment Margin Analyst Shelter * Facility Name [facility], ORALIA PERALTA, SISTER/POMateusz, [place] [phone] * ADLs Partial Dependent * Partial ADLs (Assistance needed) Ambulation Bathing Dressing Medication Management Toileting Transfers * Equipment Other * Other Equipment ALL MEDICAL EQUIPMENT PROVIDED BY CUSTODIAL FACILITY * List name and contact numbers for known caregivers / representatives who currently or will assist patient after discharge: VANESSA HEAD, * Verbal permission to speak to the caregivers and representatives has been obtained from the patient. N/A * Community resources currently utilized Private Duty Care * Please name any agencies selected above. NONE * Additional services required to return to the preadmission environment? No * Can the patient safely return to the preadmission environment? Yes * Has this patient been hospitalized within the prior 30 days at any hospital? No Coverage Notice Reviewer: AVA Lisa Notice Issued Date-Time: 05/13/2018 13:15 Notice Type: Patient Choice Letter Notice Delivered To: Patient Relationship to Patient: [facility] Name: Delivery Method: HAND - Hand Delivered Vero Days: Prior Verbal Notification: Recipient Understood Notice: Yes Recipient Signature: Yes Med Rec Note Co-signed by Attending: Coverage Notice Comment: [facility] Reviewer: [id number] Lisa Notice Issued Date-Time: 05/17/2018 10:50 Notice Type: IM Discharge Notice Notice Delivered To: Patient Relationship to Patient: [facility] Name: Delivery Method: HAND - Hand Delivered Vero Days: Prior Verbal Notification: Recipient Understood Notice: Yes Recipient Signature: Yes Med Rec Note Co-signed by Attending: Coverage Notice Comment: Reviewer: AVA Lisa Notice Issued Date-Time: 05/13/2018 13:15 Notice Type: IM Discharge Notice Notice Delivered To: Patient Relationship to Patient: [facility] Name: Delivery Method: HAND - Hand Delivered Vero Days: Prior Verbal Notification: Recipient Understood Notice: Yes Recipient Signature: Yes Med Rec Note Co-signed by Attending: Coverage Notice Comment: Last DP export: 05/19/18 7:12 a Patient Name: ELSA GARCÍA Page [id number] at 0831 All edits/amendments must be made on the electronic document DICTATION DATE: 05/19/18830 SPA ATTENDANT: DORA 05/19/18830 RPT#: [id number] DC DATE: STATUS: ADM IN [facility] [address] [place] [address] END OF REPORT
--- NOTE | ~2018-05-10 | MORECARE ---
CASE MANAGEMENT DISCHARGE SUMMARY PATIENT: ELSA GARCÍA UNIT: [id number] ADM DATE: 05/10/18 AGE: 67 : 48 SEX: F ROOM/BED: D.4300 AUTHOR: MATHEWDOC PHYSICIAN: REFERRING PHYSICIAN: LACHELLE POSADA MD DATE OF SERVICE: 05/13/18 Discharge Plan Patient Name: ELSA GARCÍA Facility: [facility]:[place] : 1950 Planned Disposition: Home with Home Health Anticipated Discharge Date: Discharge Date: Expected LOS: Initial Reviewer: [id number] Initial Review Date: 05/13/2018 Generated: 05/13/18 3:27 pm DCPIA - Discharge Planning Initial Assessment Updated by AVA: Mani Lisa on 05/13/18 2:23 pm * Is the patient Alert and Oriented? Yes * How many steps to enter\exit or inside your home? 3 W/ RAMP * PCP DR. KAYE * [facility]acy [facility] * Preadmission Environment Home Alone * ADLs Partial Dependent * Partial ADLs (Assistance needed) Ambulation Bathing Dressing Medication Management Toileting Transfers * Equipment Hospital Bed [place] Lift Power Chair or Electric Scooter Wheelchair * Other Equipment [facility] PATIENT - PROVIDER * List name and contact numbers for known caregivers / representatives who currently or will assist patient after discharge: MIGUEL PERALTA, VANESSA/CAREGIVER, * Verbal permission to speak to the caregivers and representatives has been obtained from the patient. N/A * Community resources currently utilized Private Duty Care * Please name any agencies selected above. VANESSA IS PAID CAREGIVER THROUGH MEDICAID AND PT REPORTS HAVING MUCH CARE SHE NEEDS. * Additional services required to return to the preadmission environment? No * Can the patient safely return to the preadmission environment? Yes * Has this patient been hospitalized within the prior 30 days at any hospital? No Coverage Notice Reviewer: [id number] Sukhdeep Lisa Notice Issued Date-Time: 05/13/2018 13:15 Notice Type: Patient Choice Letter Notice Delivered To: Patient Relationship to Patient: Estimator And Drafter Supervisor Name: Delivery Method: HAND - Hand Delivered Vero Days: Prior Verbal Notification: Recipient Understood Notice: Yes Recipient Signature: Yes Med Rec Note Co-signed by Attending: Coverage Notice Comment: [facility] Reviewer: [id number] - Mani Lisa Notice Issued Date-Time: 05/13/2018 13:15 Notice Type: IM Discharge Notice Notice Delivered To: Patient Relationship to Patient: Estimator And Drafter Supervisor Name: Delivery Method: HAND - Hand Delivered Vero Days: Prior Verbal Notification: Recipient Understood Notice: Yes Recipient Signature: Yes Med Rec Note Co-signed by Attending: Coverage Notice Comment: Last DP export: 05/13/18 12:52 p Patient Name: ELSA GARCÍA Page 17157 at 1427 All edits/amendments must be made on the electronic document DICTATION DATE: 05/13/181426 TILTING SAW OPERATOR: DORA 05/13/181426 RPT#: [id number] DC DATE: STATUS: ADM IN [facility] [address] [place] [address] END OF REPORT
--- NOTE | ~2018-05-10 | MORECARE ---
CASE MANAGEMENT DISCHARGE SUMMARY PATIENT: ELSA GARCÍA UNIT: [id number] ADM DATE: 05/10/18 AGE: 67 : 48 SEX: F ROOM/BED: D.1453 AUTHOR: WIL CARMONA PHYSICIAN: REFERRING PHYSICIAN: LACHELLE POSADA MD DATE OF SERVICE: 05/17/18 Discharge Plan Patient Name: ELSA GARCÍA Facility: [facility]:[place] : 1950 Planned Disposition: Home with Home Health Anticipated Discharge Date: Discharge Date: Expected LOS: Initial Reviewer: [email or web address] Initial Review Date: 05/13/2018 Generated: 05/17/18 11:00 am Comments DCP- Discharge Planning Updated by [id number]: Main Lisa on 05/13/18 2:[address] Patient Name: ELSA GARCÍA Admission Status: ER Accout number: [id number] Admission Date: 05-10-2018 : 1950 Admission Diagnosis:URINARY TRACT INFECTION, SITE NOT SPECIFIED Attending: LACHELLE POSADA Current LOS: 3 Anticipated DC Date: Planned Disposition: Home with Home Health Primary Insurance: [facility] [employer] SOL[employer]IONS PLANNED EXTERNAL PROVIDER: [facility] Discharge Planning Comments: CM MET WITH PT IN ROOM TO DISCUSS DISCHARGE PLANNING AND NEEDS. PT REPORTS LIVING AT HOME DEPENDENTLY ON CAREGIVER SERVICES FROM HER NIECE WHO IS PAID BY MEDICAID. PT HAS ASSISTANCE WITH TRANSFERS TO HER WHEELCHAIR AND THEN PT IS ABLE TO GET AROUND THE HOUSE. PT REPORTS HAVING HOSPITAL BED, [place] LIFT, POWER SCOOTER, WHEELCHAIR ALL PROVIDED BY [facility] PATIENT. PT HAS NO NO OTHER OUTSIDE SERVICES ASSISTING IN THE HOME AT THIS TIME. CM DISCUSSED AVAILABILITY OF HOME HEALTH, REHAB SERVICES AND MEDICAL EQUIPMENT. PT REPORTS HAVING HOME HEALTH WITH [facility] IN THE [facility] AND THINKS SHE MAY NEED HOME HEALTH AT DISCHARGE AGAIN. PT SIGNED CHOICE FOR [facility]. PT REPORTS NEEDING AMBULANCE FOR DISCHARGE HOME. IMPORTANT MESSAGE FROM MEDICARE PROVIDED AND EXPLAINED. CM TO ARRANGE HOME HEALTH WITH [facility], , IF NEEDED AND WITH DOCTOR AGREEMENT AND SPECIFIC HOME HEALTH ORDERS. CM TO FOLLOW AND ASSIST NEEDED. Hadoop Administrator: Mani Lisa DCPIA - Discharge Planning Initial Assessment Updated by [id number]: Mani Lisa on 05/13/18 2:23 pm * Is the patient Alert and Oriented? Yes * How many steps to enter\exit or inside your home? 3 W/ RAMP * PCP DR. KAYE * [facility]acy [facility] * Preadmission Environment Home Alone * ADLs Partial Dependent * Partial ADLs (Assistance needed) Ambulation Bathing Dressing Medication Management Toileting Transfers * Equipment Hospital Bed [place] Lift Power Chair or Electric Scooter Wheelchair * Other Equipment [facility] PATIENT - PROVIDER * List name and contact numbers for known caregivers / representatives who currently or will assist patient after discharge: MIGUEL PERALTA, NIECE/CAREGIVER, * Verbal permission to speak to the caregivers and representatives has been obtained from the patient. N/A * Community resources currently utilized Private Duty Care * Please name any agencies selected above. NIECE IS PAID CAREGIVER THROUGH MEDICAID AND PT REPORTS HAVING MUCH CARE SHE NEEDS. * Additional services required to return to the preadmission environment? No * Can the patient safely return to the preadmission environment? Yes * Has this patient been hospitalized within the prior 30 days at any hospital? No External Providers External Provider: [facility] Next Contact Date: 05/18/2018 Service Request Date: Service Type: Resolution: Reviewer: Comments: Coverage Notice Reviewer: [id number] Sukhdeep Lisa Notice Issued Date-Time: 05/13/2018 13:15 Notice Type: Patient Choice Letter Notice Delivered To: Patient Relationship to Patient: Warehousing Technician Name: Delivery Method: HAND - Hand Delivered Vero Days: Prior Verbal Notification: Recipient Understood Notice: Yes Recipient Signature: Yes Med Rec Note Co-signed by Attending: Coverage Notice Comment: [facility] Reviewer: [id number] Sukhdeep Lisa Notice Issued Date-Time: 05/13/2018 13:15 Notice Type: IM Discharge Notice Notice Delivered To: Patient Relationship to Patient: Warehousing Technician Name: Delivery Method: HAND - Hand Delivered Vero Days: Prior Verbal Notification: Recipient Understood Notice: Yes Recipient Signature: Yes Med Rec Note Co-signed by Attending: Coverage Notice Comment: Last DP export: 05/13/18 2:39 p Patient Name: ELSA GARCÍA Page 60115 at 1000 All edits/amendments must be made on the electronic document DICTATION DATE: 05/17/18958 CAD DESIGN ENGINEER: DORA 05/17/18958 RPT#: [id number] DC DATE: STATUS: ADM IN [facility] [address] [place] [address] END OF REPORT
--- NOTE | ~2018-05-10 | MORECARE ---
CASE MANAGEMENT DISCHARGE SUMMARY PATIENT: ELSA GARCÍA UNIT: [id number] ADM DATE: 05/10/18 AGE: 67 : 48 SEX: F ROOM/BED: D.6019 AUTHOR: MATHEW,DOC PHYSICIAN: REFERRING PHYSICIAN: LACHELLE POSADA MD DATE OF SERVICE: 05/19/18 Discharge Plan Patient Name: ELSA GARCÍA Facility: [facility]:[place] : 1950 Planned Disposition: Nursing Facility WIL Cert Anticipated Discharge Date: 05/19/18 Discharge Date: Expected LOS: 9 Initial Reviewer: [email or web address] Initial Review Date: 05/13/2018 Generated: 05/19/18 1:44 pm Comments DCP- Discharge Planning Updated by [id number]: Mani Vigil on 05/19/18 11:[address] Patient Name: ELSA GARCÍA Encounter No: [id number] : 1950 Primary Insurance: [facility] MEDICARE SOLUTIONS Anticipated DC Date: 05-19-2018 Planned Disposition: Nursing Facility WIL Cert External Planned Provider: [facility], LONG TERM CARE MEDICAID BED DCP follow-up note: CM FAXED UPDATE TO NICOLA AT [facility], . FOR DISCHARGE, FAX DISCHARGE INFORMATION TO THE [facility], , NURSE REPORT TO BE CALLED TO THE [facility] AT [phone]. PT TO TRANSPORT VIA AMBULANCE. Strike Off Machine Operator: Mani Vigil Appended by Mani Vigil on 05/19/2018 12:41 PROFESSIONAL ATHLETE: CM CALLED ORALIA PERALTA, SISTER/POA, AND [phone], NOTIFIED OF DISCHARGE AND SHE IS IN AGREEMENT WITH THE [facility]. CM FAXED DISCHARGE INFORMATION TO THE [facility], , NURSE REPORT TO BE CALLED TO THE [facility] AT [phone]. PT TO TRANSPORT VIA AMBULANCE. Strike Off Machine Operator: Mani VIGIL DCP- Discharge Planning Updated by [id number]: Mani Vigil on 05/18/18 3:[address] Patient Name: ELSA GARCÍA Encounter No: [id number] : 1950 Primary Insurance: [facility] MEDICARE SOLUTIONS Anticipated DC Date: Planned Disposition: Nursing Facility [facility] Cert External Planned Provider: [facility], LONG TERM CARE MEDICAID BED DCP follow-up note: CM MET WITH ORALIA PERALTA, SISTER/POA, [place] [phone]. ORALIA REPORTS PT IS GETTING A LARGE SUM OF MONEY FOR INHERITANCE AND THEY ARE FIXING UP PT'S HOME AND IF ABLE IN THE FUTURE, WILL TAKE PT HOME WITH CAREGIVERS IF PT EVER CLEARS MENTALLY ENOUGH TO DO SO. ORALIA HAS MET WITH [employer] FELLED SEAM OPERATOR REGARDING PT'S CARE AND FINANCES. PT WILL RETURN TO THE [facility] AT DISCHARGE. PT ENDED UP IN THE [facility] AFTER ADULT PROTECTIVE SERVICES BECAME INVOLVED BUT DID NOT TAKE AN HOLD, ORALIA BECAME POWER OF [employer] FELLED SEAM OPERATOR AND ASSISTED WITH PLACEMENT AT THE [facility]. FOR DISCHARGE, FAX DISCHARGE INFORMATION TO THE [facility], , NURSE REPORT TO BE CALLED TO THE [facility] AT [phone]. PT TO TRANSPORT VIA AMBULANCE. Strike Off Machine Operator: Mani Vigil DCP- Discharge Planning Updated by [id number]: Mani Vigil on 05/17/18 3:[address] Patient Name: ELSA GARCÍA Admission Status: ER Accout number: [id number] Admission Date: 05-10-2018 : 1950 Admission Diagnosis:URINARY TRACT INFECTION, SITE NOT SPECIFIED Attending: LACHELLE POSADA Current LOS: 7 Anticipated DC Date: Planned Disposition: Nursing Facility WIL Cert Primary Insurance: [facility] MEDICARE SOLUTIONS PLANNED EXTERNAL PROVIDER: [facility], LONG TERM CARE MEDICAID BED Discharge Planning Comments: CM SPOKE TO BEDSIDE NURSE WHO INFORMED CM THAT SHE BELIEVES PT LIVES AT THE [facility]. CM SPOKE TO NICOLA OF THE [facility], , WHO VERIFIED PT IS IN [facility] AT [facility]. CM SPOKE TO PT IN ROOM WHO INITIALLY STATES NO, SHE DOES NOT LIVE THERE AND THEN CLARIFIED, SHE IS STAYING THERE SHORT TERM AND IS NOT RECEIVIING ANY PHYSICAL THERAPY SERVICES. PT IN AGREEMENT WITH RETURN TO THE [facility] AT DISCHARGE. CM NOTIFIED NICOLA OF THE [facility]. CM FAXED UPDATE TO THE [facility] VIA NICOLA AT [phone]. CM CALLED ALLIE AT [facility], CANCELLED HOME HEALTH REFERRAL. FOR DISCHARGE, FAX DISCHARGE INFORMATION TO THE [facility], , NURSE REPORT TO BE CALLED TO THE [facility] AT [phone]. PT TO TRANSPORT VIA AMBULANCE. Strike Off Machine Operator: Mani Vigil DCP- Discharge Planning Updated by [id number]: Mani Vigil on 05/17/18 9:[address] Patient Name: ELSA GARCÍA Encounter No: [id number] : 1950 Primary Insurance: [facility] MEDICARE SOLUTIONS Anticipated DC Date: Planned Disposition: Home with Home Health External Planned Provider: [facility] DCP follow-up note: CM MET WITH PT IN ROOM TO DISCUSS DISCHARGE NEEDS AND PLANNING. CM DISCUSSED AVAILABILITY OF HOME HEALTH, REHAB SERVICES AND MEDICAL EQUIPMENT. PT DENIES NEED FOR REHAB PLACEMENT, PLANS TO RETURN HOME AT DISCHARGE WITH [facility] PREVIOUSLY DISCUSSED. AMBULANCE TO TRANSPORT HOME AT DISCHARGE. IMPORTANT MESSAGE FROM MEDICARE PROVIDED AND EXPLAINED. CM CALLED [facility], , SPOKE TO ALLIE WHO TOOK REFERRAL INFORMATION, [facility] IS IN NETWORK WITH PT'S INSURANCE. CM FAXED REFERRAL FOR HOME HEALTH TO [facility] AT [phone]. CM WAITING COMPLETION OF PHYSICAL THERAPY EVALUATION AND WOUND CARE CONSULT TO OBTAIN SPECIFIC HOME HEALTH ORDERS FROM PHYSICIAN. FOR DISCHARGE, CM WILL NEED SPECIFIC HOME HEALTH ORDERS AND TO NOTIFY [facility] AT [phone]; FAX DISCHARGE INFORMATION TO [facility] AT [phone]. Mani Vigil, CASE MANAGEMENT DCP- Discharge Planning Updated by [id number]: Mani Vigil on 05/13/18 2:[address] Patient Name: ELSA GARCÍA Admission Status: ER Accout number: [id number] Admission Date: 05-10-2018 : 1950 Admission Diagnosis:URINARY TRACT INFECTION, SITE NOT SPECIFIED Attending: LACHELLE POSADA Current LOS: 3 Anticipated DC Date: Planned Disposition: Home with Home Health Primary Insurance: [facility] MEDICARE SOLUTIONS PLANNED EXTERNAL PROVIDER: [facility] Discharge Planning Comments: CM MET WITH PT IN ROOM TO DISCUSS DISCHARGE PLANNING AND NEEDS. PT REPORTS LIVING AT HOME DEPENDENTLY ON CAREGIVER SERVICES FROM HER NIECE WHO IS PAID BY MEDICAID. PT HAS ASSISTANCE WITH TRANSFERS TO HER WHEELCHAIR AND THEN PT IS ABLE TO GET AROUND THE HOUSE. PT REPORTS HAVING HOSPITAL BED, [place] LIFT, POWER SCOOTER, WHEELCHAIR ALL PROVIDED BY [facility] PATIENT. PT HAS NO NO OTHER OUTSIDE SERVICES ASSISTING IN THE HOME AT THIS TIME. CM DISCUSSED AVAILABILITY OF HOME HEALTH, REHAB SERVICES AND MEDICAL EQUIPMENT. PT REPORTS HAVING HOME HEALTH WITH [facility] IN THE [facility] AND THINKS SHE MAY NEED HOME HEALTH AT DISCHARGE AGAIN. PT SIGNED CHOICE FOR [facility]. PT REPORTS NEEDING AMBULANCE FOR DISCHARGE HOME. IMPORTANT MESSAGE FROM MEDICARE PROVIDED AND EXPLAINED. CM TO ARRANGE HOME HEALTH WITH [facility], , IF NEEDED AND WITH DOCTOR AGREEMENT AND SPECIFIC HOME HEALTH ORDERS. CM TO FOLLOW AND ASSIST NEEDED. Strike Off Machine Operator: Mani Vigil DCPIA - Discharge Planning Initial Assessment Updated by [id number]: Mani Vigil on 05/18/18 4:54 pm * Is the patient Alert and Oriented? Yes * How many steps to enter\exit or inside your home? NONE * PCP DR. AZUL * [facility] * Preadmission Environment [facility] * Facility Name [facility], ORALIA PERALTA, /[place], [place] [phone] * ADLs Partial Dependent * Partial ADLs (Assistance needed) Ambulation Bathing Dressing Medication Management Toileting Transfers * Equipment Other * Other Equipment ALL MEDICAL EQUIPMENT PROVIDED BY [facility] * List name and contact numbers for known caregivers / representatives who currently or will assist patient after discharge: VANESSA HEDA, * Verbal permission to speak to the caregivers and representatives has been obtained from the patient. N/A * Community resources currently utilized Private Duty Care * Please name any agencies selected above. NONE * Additional services required to return to the preadmission environment? No * Can the patient safely return to the preadmission environment? Yes * Has this patient been hospitalized within the prior 30 days at any hospital? No Coverage Notice Reviewer: [id number] - Mani Vigil Notice Issued Date-Time: 05/13/2018 13:15 Notice Type: Patient Choice Letter Notice Delivered To: Patient Relationship to Patient: Paper Coating Supervisor Name: Delivery Method: HAND - Hand Delivered Vero Days: Prior Verbal Notification: Recipient Understood Notice: Yes Recipient Signature: Yes Med Rec Note Co-signed by Attending: Coverage Notice Comment: [facility] Reviewer: [id number] Sukhdeep Vigil Notice Issued Date-Time: 05/13/2018 13:15 Notice Type: IM Discharge Notice Notice Delivered To: Patient Relationship to Patient: Paper Coating Supervisor Name: Delivery Method: HAND - Hand Delivered Vero Days: Prior Verbal Notification: Recipient Understood Notice: Yes Recipient Signature: Yes Med Rec Note Co-signed by Attending: Coverage Notice Comment: Reviewer: [id number] Sukhdeep Vigil Notice Issued Date-Time: 05/17/2018 10:50 Notice Type: IM Discharge Notice Notice Delivered To: Patient Relationship to Patient: Paper Coating Supervisor Name: Delivery Method: HAND - Hand Delivered Vero Days: Prior Verbal Notification: Recipient Understood Notice: Yes Recipient Signature: Yes Med Rec Note Co-signed by Attending: Coverage Notice Comment: Last DP export: 05/19/18 7:31 a Patient Name: ELSA GARCÍA Page 54041 at 1244 All edits/amendments must be made on the electronic document DICTATION DATE: 05/19/18 1243 PRODUCTION MECHANIC TIN CANS: DORA 05/19/18 1243 RPT#: [id number] DC DATE: STATUS: ADM IN [facility] [address] [place] [address] END OF REPORT
--- NOTE | ~2018-05-10 | MORECARE ---
CASE MANAGEMENT DISCHARGE SUMMARY PATIENT: ELSA GARCÍA UNIT: [id number] ADM DATE: 05/10/18 AGE: 67 : 48 SEX: F ROOM/BED: D.2010 AUTHOR: WIL CARMONA PHYSICIAN: REFERRING PHYSICIAN: LACHELLE POSADA MD DATE OF SERVICE: 05/18/18 Discharge Plan Patient Name: ELSA GARCÍA Facility: [facility]:[place] : 1950 Planned Disposition: Nursing Facility WIL Cert Anticipated Discharge Date: Discharge Date: Expected LOS: Initial Reviewer: [id number] Initial Review Date: 05/13/2018 Generated: 05/18/18 5:58 pm Comments DCP- Discharge Planning Updated by [id number]: Mani Lisa on 05/18/18 3:[address] Patient Name: ESLA GARCÍA Encounter No: [id number] : 1950 Primary Insurance: [facility] MEDICARE SOLUTIONS Anticipated DC Date: Planned Disposition: Nursing Facility WIL Cert External Planned Provider: [facility] LONG TERM CARE MEDICAID BED DCP follow-up note: CM MET WITH ORALIA KATHRYN, SISTER/POA, [place] [phone]. ORALIA REPORTS PT IS GETTING A LARGE SUM OF MONEY FOR INHERITANCE AND THEY ARE FIXING UP PT'S HOME AND IF ABLE IN THE FUTURE, WILL TAKE PT HOME WITH CAREGIVERS IF PT EVER CLEARS MENTALLY ENOUGH TO DO SO. ORALIA HAS MET WITH LEAD WEB APPLICATION DEVELOPER REGARDING PT'S CARE AND FINANCES. PT WILL RETURN TO THE [facility] AT DISCHARGE. PT ENDED UP IN THE [facility] AFTER ADULT PROTECTIVE SERVICES BECAME INVOLVED BUT DID NOT TAKE AN HOLD, [facility] BECAME POWER OF LEAD WEB APPLICATION DEVELOPER AND ASSISTED WITH PLACEMENT AT THE [facility]. FOR DISCHARGE, FAX DISCHARGE INFORMATION TO THE [facility], , NURSE REPORT TO BE CALLED TO THE [facility] AT [phone]. PT TO TRANSPORT VIA AMBULANCE. Adjunct Instructor: Mani Lisa DCP- Discharge Planning Updated by [id number]: Mani Lisa on 05/17/18 3:[address] Patient Name: ELSA GARCÍA Admission Status: ER Accout number: [id number] Admission Date: 05-10-2018 : 1950 Admission Diagnosis:URINARY TRACT INFECTION, SITE NOT SPECIFIED Attending: LACHELLE POSADA Current LOS: 7 Anticipated DC Date: Planned Disposition: Nursing Facility [facility] Primary Insurance: [facility] MEDICARE SOLUTIONS PLANNED EXTERNAL PROVIDER: [facility] SENIOR CARE CARE MEDICAID BED Discharge Planning Comments: CM SPOKE TO BEDSIDE NURSE WHO INFORMED CM THAT SHE [facility] CM SPOKE TO NICOLA OF [facility], , WHO VERIFIED PT IS IN SENIOR CARE CARE AT THE [facility]. CM SPOKE TO PT IN ROOM WHO INITIALLY STATES NO, SHE DOES NOT LIVE THERE AND THEN CLARIFIED, SHE IS STAYING THERE SHORT TERM AND IS NOT RECEIVIING ANY PHYSICAL THERAPY SERVICES. PT IN AGREEMENT WITH RETURN TO THE [facility] AT DISCHARGE. CM NOTIFIED [facility]ICOLA OF [facility]. CM FAXED UPDATE TO THE [facility] VIA [facility] AT [phone]. CM CALLED ALLIE AT [facility], CANCELLED HOME HEALTH REFERRAL. FOR DISCHARGE, FAX DISCHARGE INFORMATION TO THE [facility], , NURSE REPORT TO BE CALLED TO THE [facility] AT [phone]. PT TO TRANSPORT VIA AMBULANCE. Adjunct Instructor: Mani Lisa DCP- Discharge Planning Updated by [id number]: Mani Lisa on 05/17/18 9:[address] Patient Name: ELSA GARCÍA Encounter No: [id number] : 1950 Primary Insurance: [facility] MEDICARE SOLUTIONS Anticipated DC Date: Planned Disposition: Home with Home Health External Planned Provider: [facility] DCP follow-up note: CM MET WITH PT IN ROOM TO DISCUSS DISCHARGE NEEDS AND PLANNING. CM DISCUSSED AVAILABILITY OF HOME HEALTH, REHAB SERVICES AND MEDICAL EQUIPMENT. PT DENIES NEED FOR REHAB PLACEMENT, PLANS TO RETURN HOME AT DISCHARGE WITH [facility] PREVIOUSLY DISCUSSED. AMBULANCE TO TRANSPORT HOME AT DISCHARGE. IMPORTANT MESSAGE FROM MEDICARE PROVIDED AND EXPLAINED. CM CALLED [facility], , SPOKE TO ALLIE WHO TOOK REFERRAL INFORMATION, [place] IS IN NETWORK WITH PT'S INSURANCE. CM FAXED REFERRAL FOR HOME HEALTH TO [facility] AT [phone]. CM WAITING COMPLETION OF PHYSICAL THERAPY EVALUATION AND WOUND CARE CONSULT TO OBTAIN SPECIFIC HOME HEALTH ORDERS FROM PHYSICIAN. FOR DISCHARGE, CM WILL NEED SPECIFIC HOME HEALTH ORDERS AND TO NOTIFY [facility] AT [phone]; FAX DISCHARGE INFORMATION TO [facility] AT [phone]. Mani Lisa, CASE MANAGEMENT DCP- Discharge Planning Updated by [id number]: Mani Lisa on 05/13/18 2:[address] Patient Name: ELSA GARCÍA Admission Status: ER Accout number: [id number] Admission Date: 05-10-2018 : 1950 Admission Diagnosis:URINARY TRACT INFECTION, SITE NOT SPECIFIED Attending: LACHELLE POSADA Current LOS: 3 Anticipated DC Date: Planned Disposition: Home with Home Health Primary Insurance: [facility] MEDICARE SOLUTIONS PLANNED EXTERNAL PROVIDER: [facility] Discharge Planning Comments: CM MET WITH PT IN ROOM TO DISCUSS DISCHARGE PLANNING AND NEEDS. PT REPORTS LIVING AT HOME DEPENDENTLY ON CAREGIVER SERVICES FROM HER NIECE WHO IS PAID BY MEDICAID. PT HAS ASSISTANCE WITH TRANSFERS TO HER WHEELCHAIR AND THEN PT IS ABLE TO GET AROUND THE HOUSE. PT REPORTS HAVING HOSPITAL BED, NICK LIFT, POWER SCOOTER, WHEELCHAIR ALL PROVIDED BY [facility] PATIENT. PT HAS NO NO OTHER OUTSIDE SERVICES ASSISTING IN THE HOME AT THIS TIME. CM DISCUSSED AVAILABILITY OF HOME HEALTH, REHAB SERVICES AND MEDICAL EQUIPMENT. PT REPORTS HAVING HOME HEALTH WITH [facility] IN THE [facility] AND THINKS SHE MAY NEED HOME HEALTH AT DISCHARGE AGAIN. PT SIGNED CHOICE FOR [facility]. PT REPORTS NEEDING AMBULANCE FOR DISCHARGE HOME. IMPORTANT MESSAGE FROM MEDICARE PROVIDED AND EXPLAINED. CM TO ARRANGE HOME HEALTH WITH [facility], , IF NEEDED AND WITH DOCTOR AGREEMENT AND SPECIFIC HOME HEALTH ORDERS. CM TO FOLLOW AND ASSIST NEEDED. Adjunct Instructor: Mani Lisa DCPIA - Discharge Planning Initial Assessment Updated by [id number]: Mani Lisa on 05/18/18 4:54 pm * Is the patient Alert and Oriented? Yes * How many steps to enter\exit or inside your home? NONE * PCP DR. AZUL * [facility] * Preadmission Environment [facility]iary Longterm * Facility Name [facility], ORALIA PERALTA, SISTER/POA, [place] [phone] * ADLs Partial Dependent * Partial ADLs (Assistance needed) Ambulation Bathing Dressing Medication Management Toileting Transfers * Equipment Other * Other Equipment ALL MEDICAL EQUIPMENT PROVIDED BY CUSTODIAL FACILITY * List name and contact numbers for known caregivers / representatives who currently or will assist patient after discharge: VANESSA HEAD, * Verbal permission to speak to the caregivers and representatives has been obtained from the patient. N/A * Community resources currently utilized Private Duty Care * Please name any agencies selected above. NONE * Additional services required to return to the preadmission environment? No * Can the patient safely return to the preadmission environment? Yes * Has this patient been hospitalized within the prior 30 days at any hospital? No Coverage Notice Reviewer: AVA Lisa Notice Issued Date-Time: 05/13/2018 13:15 Notice Type: Patient Choice Letter Notice Delivered To: Patient Relationship to Patient: Unix Architect Name: Delivery Method: HAND - Hand Delivered Vero Days: Prior Verbal Notification: Recipient Understood Notice: Yes Recipient Signature: Yes Med Rec Note Co-signed by Attending: Coverage Notice Comment: [facility] Reviewer: AVA Lisa Notice Issued Date-Time: 05/13/2018 13:15 Notice Type: IM Discharge Notice Notice Delivered To: Patient Relationship to Patient: Unix Architect Name: Delivery Method: HAND - Hand Delivered Vero Days: Prior Verbal Notification: Recipient Understood Notice: Yes Recipient Signature: Yes Med Rec Note Co-signed by Attending: Coverage Notice Comment: Reviewer: AVA Lisa Notice Issued Date-Time: 05/17/2018 10:50 Notice Type: IM Discharge Notice Notice Delivered To: Patient Relationship to Patient: Unix Architect Name: Delivery Method: HAND - Hand Delivered Vero Days: Prior Verbal Notification: Recipient Understood Notice: Yes Recipient Signature: Yes Med Rec Note Co-signed by Attending: Coverage Notice Comment: Last DP export: 05/17/18 3:44 p Patient Name: ELSA GARCÍA Page [id number] at 1659 All edits/amendments must be made on the electronic document DICTATION DATE: 05/18/181657 RETROFIT INSTALLER: DORA 05/18/181657 RPT#: [id number] [place] DATE: STATUS: ADM IN [facility] [address] [place] [address] END OF REPORT
--- NOTE | ~2018-05-10 | MORECARE ---
CASE MANAGEMENT DISCHARGE SUMMARY PATIENT: ELSA GARCÍA UNIT: [id number] ADM DATE: 05/10/18 AGE: 67 : 48 SEX: F ROOM/BED: D.9993 AUTHOR: WIL CARMONA PHYSICIAN: REFERRING PHYSICIAN: LACHELLE POSADA MD DATE OF SERVICE: 05/19/18 Discharge Plan Patient Name: ELSA GARCÍA Facility: [facility]:[place] : 1950 Planned Disposition: Nursing Facility WIL Cert Anticipated Discharge Date: 05/19/18 Discharge Date: Expected LOS: 9 Initial Reviewer: [id number] Initial Review Date: 05/13/2018 Generated: 05/19/18 9:12 am Comments DCP- Discharge Planning Updated by [id number]: Mani Lisa on 05/18/18 3:[address] Patient Name: ELSA GARCÍA Encounter No: [id number] : 1950 Primary Insurance: [employer] MEDICARE SOLUTIONS Anticipated DC Date: Planned Disposition: Nursing Facility WIL Cert External Planned Provider: [facility], LONG TERM CARE MEDICAID BED DCP follow-up note: CM MET WITH ORALIA KATHRYN, SISTER/POA, [place] [phone]. [facility] REPORTS PT IS GETTING A LARGE SUM OF MONEY FOR INHERITANCE AND THEY ARE FIXING UP PT'S HOME AND IF ABLE IN THE FUTURE, WILL TAKE PT HOME WITH CAREGIVERS IF PT EVER CLEARS MENTALLY ENOUGH TO DO SO. ORALIA HAS MET WITH PROFESSOR OF MANAGEMENT REGARDING PT'S CARE AND FINANCES. PT WILL RETURN TO THE [facility] AT DISCHARGE. PT ENDED UP IN THE [facility] AFTER ADULT PROTECTIVE SERVICES BECAME INVOLVED BUT DID NOT TAKE AN HOLD, [place] BECAME POWER OF PROFESSOR OF MANAGEMENT AND ASSISTED WITH PLACEMENT AT THE [facility] [place] [place]. FOR DISCHARGE, FAX DISCHARGE INFORMATION TO THE [facility], , NURSE REPORT TO BE CALLED TO THE [facility] AT [phone]. PT TO TRANSPORT VIA AMBULANCE. Salesman/Owner: Mani Lisa DCP- Discharge Planning Updated by [id number]: Mani Lisa on 05/17/18 3:[address] Patient Name: ELSA GARCÍA Admission Status: ER Accout number: [id number] Admission Date: 05-10-2018 : 1950 Admission Diagnosis:URINARY TRACT INFECTION, SITE NOT SPECIFIED Attending: LACHELLE POSADA Current LOS: 7 Anticipated DC Date: Planned Disposition: Nursing Facility [facility] Primary Insurance: [facility] MEDICARE SOLUTIONS PLANNED EXTERNAL PROVIDER: [facility] [place] [place] [facility] MEDICAID BED Discharge Planning Comments: CM SPOKE TO BEDSIDE NURSE WHO INFORMED CM THAT SHE BELIEVES PT LIVES AT THE [facility]. CM SPOKE TO NICOLA OF [facility], , WHO VERIFIED PT IS IN REED POLISHER CARE AT THE [facility]. CM SPOKE TO PT IN ROOM WHO INITIALLY STATES NO, SHE DOES NOT LIVE THERE AND THEN CLARIFIED, SHE IS STAYING THERE SHORT TERM AND IS NOT RECEIVIING ANY PHYSICAL THERAPY SERVICES. PT IN AGREEMENT WITH RETURN TO THE [facility] AT DISCHARGE. CM NOTIFIED [facility]OLA OF [facility]. CM FAXED UPDATE TO THE [facility] VIA [facility] AT [phone]. CM CALLED ALLIE AT [facility], CANCELLED HOME HEALTH REFERRAL. FOR DISCHARGE, FAX DISCHARGE INFORMATION TO THE [facility], , NURSE REPORT TO BE CALLED TO THE [facility] AT [phone]. PT TO TRANSPORT VIA AMBULANCE. Salesman/Owner: Mani Lisa DCP- Discharge Planning Updated by [id number]: Mani Lisa on 05/17/18 9:[address] Patient Name: ELSA GARCÍA Encounter No: [id number] : 1950 Primary Insurance: [facility] MEDICARE SOLUTIONS Anticipated DC Date: Planned Disposition: Home with Home Health External Planned Provider: [facility] DCP follow-up note: CM MET WITH PT IN ROOM TO DISCUSS DISCHARGE NEEDS AND PLANNING. CM DISCUSSED AVAILABILITY OF HOME HEALTH, REHAB SERVICES AND MEDICAL EQUIPMENT. PT DENIES NEED FOR REHAB PLACEMENT, PLANS TO RETURN HOME AT DISCHARGE WITH [facility] PREVIOUSLY DISCUSSED. AMBULANCE TO TRANSPORT HOME AT DISCHARGE. IMPORTANT MESSAGE FROM MEDICARE PROVIDED AND EXPLAINED. CM CALLED [facility] [employer] [facility], , SPOKE TO ALLIE WHO TOOK REFERRAL INFORMATION, [place] IS IN NETWORK WITH PT'S INSURANCE. CM FAXED REFERRAL FOR HOME HEALTH TO [place] AT [phone]. CM WAITING COMPLETION OF PHYSICAL THERAPY EVALUATION AND WOUND CARE CONSULT TO OBTAIN SPECIFIC HOME HEALTH ORDERS FROM PHYSICIAN. FOR DISCHARGE, CM WILL NEED SPECIFIC HOME HEALTH ORDERS AND TO NOTIFY [facility] AT [phone]; FAX DISCHARGE INFORMATION TO [place] [facility] AT [phone]. Mani Lisa, CASE MANAGEMENT DCP- Discharge Planning Updated by [id number]: Mani Lisa on 05/13/18 2:[address] Patient Name: ELSA GARCÍA Admission Status: ER Accout number: [id number] Admission Date: 05-10-2018 : 1950 Admission Diagnosis:URINARY TRACT INFECTION, SITE NOT SPECIFIED Attending: LACHELLE POSADA Current LOS: 3 Anticipated DC Date: Planned Disposition: Home with Home Health Primary Insurance: [facility] MEDICARE SOLUTIONS PLANNED EXTERNAL PROVIDER: [facility] Discharge Planning Comments: CM MET WITH PT IN ROOM TO DISCUSS DISCHARGE PLANNING AND NEEDS. PT REPORTS LIVING AT HOME DEPENDENTLY ON CAREGIVER SERVICES FROM HER NIECE WHO IS PAID BY MEDICAID. PT HAS ASSISTANCE WITH TRANSFERS TO HER WHEELCHAIR AND THEN PT IS ABLE TO GET AROUND THE HOUSE. PT REPORTS HAVING HOSPITAL BED, NICK LIFT, POWER SCOOTER, WHEELCHAIR ALL PROVIDED BY [facility] PATIENT. PT HAS NO NO OTHER OUTSIDE SERVICES ASSISTING IN THE HOME AT THIS TIME. CM DISCUSSED AVAILABILITY OF HOME HEALTH, REHAB SERVICES AND MEDICAL EQUIPMENT. PT REPORTS HAVING HOME HEALTH WITH [facility] IN THE PAST [facility] AND THINKS SHE MAY NEED HOME HEALTH AT DISCHARGE AGAIN. PT SIGNED CHOICE FOR [facility]. PT REPORTS NEEDING AMBULANCE FOR DISCHARGE HOME. IMPORTANT MESSAGE FROM MEDICARE PROVIDED AND EXPLAINED. CM TO ARRANGE HOME HEALTH WITH [facility], , IF NEEDED AND WITH DOCTOR AGREEMENT AND SPECIFIC HOME HEALTH ORDERS. CM TO FOLLOW AND ASSIST NEEDED. Salesman/Owner: Mani Lisa DCPIA - Discharge Planning Initial Assessment Updated by [email or web address]: Mani Lisa on 05/18/18 4:54 pm * Is the patient Alert and Oriented? Yes * How many steps to enter\exit or inside your home? NONE * PCP DR. AZUL * Pharm[facility] * Preadmission Environment Assisted Longterm * Facility Name [facility], ORALIA PERALTA, SISTER/POA, [place] [phone] * ADLs Partial Dependent * Partial ADLs (Assistance needed) Ambulation Bathing Dressing Medication Management Toileting Transfers * Equipment Other * Other Equipment ALL MEDICAL EQUIPMENT PROVIDED BY P[facility]ENTIARY FACILITY * List name and contact numbers for known caregivers / representatives who currently or will assist patient after discharge: VANESSA HEAD, * Verbal permission to speak to the caregivers and representatives has been obtained from the patient. N/A * Community resources currently utilized Private Duty Care * Please name any agencies selected above. NONE * Additional services required to return to the preadmission environment? No * Can the patient safely return to the preadmission environment? Yes * Has this patient been hospitalized within the prior 30 days at any hospital? No Coverage Notice Reviewer: AVA Lisa Notice Issued Date-Time: 05/13/2018 13:15 Notice Type: Patient Choice Letter Notice Delivered To: Patient Relationship to Patient: Automatic Grinding Machine Operator Name: Delivery Method: HAND - Hand Delivered Vero Days: Prior Verbal Notification: Recipient Understood Notice: Yes Recipient Signature: Yes Med Rec Note Co-signed by Attending: Coverage Notice Comment: [facility] Reviewer: AVA Lisa Notice Issued Date-Time: 05/13/2018 13:15 Notice Type: IM Discharge Notice Notice Delivered To: Patient Relationship to Patient: Automatic Grinding Machine Operator Name: Delivery Method: HAND - Hand Delivered Vero Days: Prior Verbal Notification: Recipient Understood Notice: Yes Recipient Signature: Yes Med Rec Note Co-signed by Attending: Coverage Notice Comment: Reviewer: AVA Lisa Notice Issued Date-Time: 05/17/2018 10:50 Notice Type: IM Discharge Notice Notice Delivered To: Patient Relationship to Patient: Automatic Grinding Machine Operator Name: Delivery Method: HAND - Hand Delivered Vero Days: Prior Verbal Notification: Recipient Understood Notice: Yes Recipient Signature: Yes Med Rec Note Co-signed by Attending: Coverage Notice Comment: Last DP export: 05/18/18 3:58 p Patient Name: ELSA GARCÍA Page [id number] at 0812 All edits/amendments must be made on the electronic document DICTATION DATE: 05/19/18811 EXTENSION WORKER: DORA 05/19/18811 RPT#: [id number] DC DATE: STATUS: ADM IN [facility] [address] [place] [address] END OF REPORT
--- NOTE | ~2018-05-10 | MORECARE ---
CASE MANAGEMENT DISCHARGE SUMMARY PATIENT: ELSA GARCÍA UNIT: [id number] ADM DATE: 05/10/18 AGE: 67 : 48 SEX: F ROOM/BED: D.0665 AUTHOR: MATHEW,DOC PHYSICIAN: REFERRING PHYSICIAN: LACHELLE POSADA MD DATE OF SERVICE: 05/17/18 Discharge Plan Patient Name: ELSA GARCÍA Facility: [facility]:[place] : 1950 Planned Disposition: Home with Home Health Anticipated Discharge Date: Discharge Date: Expected LOS: Initial Reviewer: [id number] Initial Review Date: 05/13/2018 Generated: 05/17/18 11:33 am Comments DCP- Discharge Planning Updated by AVA: Mani Lisa on 05/17/18 9:[address] Patient Name: ELSA GARCÍA Encounter No: [id number] : 1950 Primary Insurance: [facility] MEDICARE SOLUTIONS Anticipated DC Date: Planned Disposition: Home with Home Health External Planned Provider: [facility] DCP follow-up note: CM MET WITH PT IN ROOM TO DISCUSS DISCHARGE NEEDS AND PLANNING. CM DISCUSSED AVAILABILITY OF HOME HEALTH, REHAB SERVICES AND MEDICAL EQUIPMENT. PT DENIES NEED FOR REHAB PLACEMENT, PLANS TO RETURN HOME AT DISCHARGE WITH [facility] PREVIOUSLY DISCUSSED. AMBULANCE TO TRANSPORT HOME AT DISCHARGE. IMPORTANT MESSAGE FROM MEDICARE PROVIDED AND EXPLAINED. CM CALLED [facility], , SPOKE TO ALLIE WHO TOOK REFERRAL INFORMATION, [facility] IS IN NETWORK WITH PT'S INSURANCE. CM FAXED REFERRAL FOR HOME HEALTH TO [facility] AT [phone]. CM WAITING COMPLETION OF PHYSICAL THERAPY EVALUATION AND WOUND CARE CONSULT TO OBTAIN SPECIFIC HOME HEALTH ORDERS FROM PHYSICIAN. FOR DISCHARGE, CM WILL NEED SPECIFIC HOME HEALTH ORDERS AND TO NOTIFY [facility] AT [phone]; FAX DISCHARGE INFORMATION TO [facility] AT [phone]. VU Sinha DCP- Discharge Planning Updated by [id number]: Mani Lisa on 05/13/18 2:[address] Patient Name: ELSA GARCÍA Admission Status: ER Accout number: [id number] Admission Date: 05-10-2018 : 1950 Admission Diagnosis:URINARY TRACT INFECTION, SITE NOT SPECIFIED Attending: LACHELLE POSADA Current LOS: 3 Anticipated DC Date: Planned Disposition: Home with Home Health Primary Insurance: [facility] MEDICARE SOLUTIONS PLANNED EXTERNAL PROVIDER: [facility] Discharge Planning Comments: CM MET WITH PT IN ROOM TO DISCUSS DISCHARGE PLANNING AND NEEDS. PT REPORTS LIVING AT HOME DEPENDENTLY ON CAREGIVER SERVICES FROM HER NIECE WHO IS PAID BY MEDICAID. PT HAS ASSISTANCE WITH TRANSFERS TO HER WHEELCHAIR AND THEN PT IS ABLE TO GET AROUND THE HOUSE. PT REPORTS HAVING HOSPITAL BED, [place] LIFT, POWER SCOOTER, WHEELCHAIR ALL PROVIDED BY [facility] PATIENT. PT HAS NO NO OTHER OUTSIDE SERVICES ASSISTING IN THE HOME AT THIS TIME. CM DISCUSSED AVAILABILITY OF HOME HEALTH, REHAB SERVICES AND MEDICAL EQUIPMENT. PT REPORTS HAVING HOME HEALTH WITH [facility] IN THE [facility]ST [facility] AND THINKS SHE MAY NEED HOME HEALTH AT DISCHARGE AGAIN. PT SIGNED CHOICE FOR [facility]. PT REPORTS NEEDING AMBULANCE FOR DISCHARGE HOME. IMPORTANT MESSAGE FROM MEDICARE PROVIDED AND EXPLAINED. CM TO ARRANGE HOME HEALTH WITH [facility], , IF NEEDED AND WITH DOCTOR AGREEMENT AND SPECIFIC HOME HEALTH ORDERS. CM TO FOLLOW AND ASSIST NEEDED. Strawhat Inspector And Packer: Mani Lisa DCPIA - Discharge Planning Initial Assessment Updated by [id number]: Mani Lisa on 05/13/18 2:23 pm * Is the patient Alert and Oriented? Yes * How many steps to enter\exit or inside your home? 3 W/ RAMP * PCP DR. KAYE * Pharmacy [facility] * Preadmission Environment Home Alone * ADLs Partial Dependent * Partial ADLs (Assistance needed) Ambulation Bathing Dressing Medication Management Toileting Transfers * Equipment Hospital Bed [place] Lift Power Chair or Electric Scooter Wheelchair * Other Equipment [facility] PATIENT - PROVIDER * List name and contact numbers for known caregivers / representatives who currently or will assist patient after discharge: MIGUEL PERALTA, NIECE/CAREGIVER, * Verbal permission to speak to the caregivers and representatives has been obtained from the patient. N/A * Community resources currently utilized Private Duty Care * Please name any agencies selected above. NIECE IS PAID CAREGIVER THROUGH MEDICAID AND PT REPORTS HAVING MUCH CARE SHE NEEDS. * Additional services required to return to the preadmission environment? No * Can the patient safely return to the preadmission environment? Yes * Has this patient been hospitalized within the prior 30 days at any hospital? No Coverage Notice Reviewer: [id number] Lisa Notice Issued Date-Time: 05/13/2018 13:15 Notice Type: Patient Choice Letter Notice Delivered To: Patient Relationship to Patient: Telecommunications Field Engineer Name: Delivery Method: HAND - Hand Delivered Vero Days: Prior Verbal Notification: Recipient Understood Notice: Yes Recipient Signature: Yes Med Rec Note Co-signed by Attending: Coverage Notice Comment: [facility] Reviewer: [id number] Lisa Notice Issued Date-Time: 05/13/2018 13:15 Notice Type: IM Discharge Notice Notice Delivered To: Patient Relationship to Patient: Telecommunications Field Engineer Name: Delivery Method: HAND - Hand Delivered Vero Days: Prior Verbal Notification: Recipient Understood Notice: Yes Recipient Signature: Yes Med Rec Note Co-signed by Attending: Coverage Notice Comment: Reviewer: AVA Lisa Notice Issued Date-Time: 05/17/2018 10:50 Notice Type: IM Discharge Notice Notice Delivered To: Patient Relationship to Patient: Telecommunications Field Engineer Name: Delivery Method: HAND - Hand Delivered Vero Days: Prior Verbal Notification: Recipient Understood Notice: Yes Recipient Signature: Yes Med Rec Note Co-signed by Attending: Coverage Notice Comment: Last DP export: 05/17/18 9:00 a Patient Name: ELSA GARCÍA Page [id number] at 1033 All edits/amendments must be made on the electronic document DICTATION DATE: 05/17/18 1033 VICE PRESIDENT OF BUSINESS DEVELOPMENT: DORA 05/17/18 1033 RPT#: [id number] DC DATE: STATUS: ADM IN [facility] [address] [place] [address] END OF REPORT
--- NOTE | ~2018-05-10 | MORECARE ---
CASE MANAGEMENT DISCHARGE SUMMARY PATIENT: ELSA GARCÍA UNIT: [id number] ADM DATE: 05/10/18 AGE: 67 : 48 SEX: F ROOM/BED: D.8452 AUTHOR: WIL CARMONA PHYSICIAN: REFERRING PHYSICIAN: LACHELLE POSADA MD DATE OF SERVICE: 05/13/18 Discharge Plan Patient Name: ELSA GARCÍA Facility: [facility]:[place] : 1950 Planned Disposition: Home with Home Health Anticipated Discharge Date: Discharge Date: Expected LOS: Initial Reviewer: [id number] Initial Review Date: 05/13/2018 Generated: 05/13/18 3:39 pm Comments DCP- Discharge Planning Updated by [id number]: Mani Lisa on 05/13/18 1:[address] Patient Name: ELSA GARCÍA Admission Status: ER Accout number: [id number] Admission Date: 05-10-2018 : 1950 Admission Diagnosis:URINARY TRACT INFECTION, SITE NOT SPECIFIED Attending: LACHELLE POSADA Current LOS: 3 Anticipated DC Date: Planned Disposition: Home with Home Health Primary Insurance: [facility] MEDICARE SOLUTIONS PLANNED EXTERNAL PROVIDER: [facility] Discharge Planning Comments: CM MET WITH PT IN ROOM TO DISCUSS DISCHARGE PLANNING AND NEEDS. PT REPORTS LIVING AT HOME DEPENDENTLY ON CAREGIVER SERVICES FROM HER NIECE WHO IS PAID BY MEDICAID. PT HAS ASSISTANCE WITH TRANSFERS TO HER WHEELCHAIR AND THEN PT IS ABLE TO GET AROUND THE HOUSE. PT REPORTS HAVING HOSPITAL BED, [place] LIFT, POWER SCOOTER, WHEELCHAIR ALL PROVIDED BY [facility] PATIENT. PT HAS NO NO OTHER OUTSIDE SERVICES ASSISTING IN THE HOME AT THIS TIME. CM DISCUSSED AVAILABILITY OF HOME HEALTH, REHAB SERVICES AND MEDICAL EQUIPMENT. PT REPORTS HAVING HOME HEALTH WITH [facility] IN THE [facility] AND THINKS SHE MAY NEED HOME HEALTH AT DISCHARGE AGAIN. PT SIGNED CHOICE FOR [facility]. PT REPORTS NEEDING AMBULANCE FOR DISCHARGE HOME. IMPORTANT MESSAGE FROM MEDICARE PROVIDED AND EXPLAINED. CM TO ARRANGE HOME HEALTH WITH [facility], , IF NEEDED AND WITH DOCTOR AGREEMENT AND SPECIFIC HOME HEALTH ORDERS. CM TO FOLLOW AND ASSIST NEEDED. Travel Money Advisor: Mani Lisa DCPIA - Discharge Planning Initial Assessment Updated by [id number]: Mani Lisa on 05/13/18 2:23 pm * Is the patient Alert and Oriented? Yes * How many steps to enter\exit or inside your home? 3 W/ RAMP * PCP DR. KAYE * Pharmacy [facility] * Preadmission Environment Home Alone * ADLs Partial Dependent * Partial ADLs (Assistance needed) Ambulation Bathing Dressing Medication Management Toileting Transfers * Equipment Hospital Bed [place] Lift Power Chair or Electric Scooter Wheelchair * Other Equipment [facility] PATIENT - PROVIDER * List name and contact numbers for known caregivers / representatives who currently or will assist patient after discharge: MIGUEL PERALTA, NIECE/CAREGIVER, * Verbal permission to speak to the caregivers and representatives has been obtained from the patient. N/A * Community resources currently utilized Private Duty Care * Please name any agencies selected above. NIECE IS PAID CAREGIVER THROUGH MEDICAID AND PT REPORTS HAVING MUCH CARE SHE NEEDS. * Additional services required to return to the preadmission environment? No * Can the patient safely return to the preadmission environment? Yes * Has this patient been hospitalized within the prior 30 days at any hospital? No Coverage Notice Reviewer: [id number] Sukhdeep Lisa Notice Issued Date-Time: 05/13/2018 13:15 Notice Type: Patient Choice Letter Notice Delivered To: Patient Relationship to Patient: Watershed Program Manager Name: Delivery Method: HAND - Hand Delivered Vero Days: Prior Verbal Notification: Recipient Understood Notice: Yes Recipient Signature: Yes Med Rec Note Co-signed by Attending: Coverage Notice Comment: [facility] Reviewer: [id number] Sukhdeep Lisa Notice Issued Date-Time: 05/13/2018 13:15 Notice Type: IM Discharge Notice Notice Delivered To: Patient Relationship to Patient: Watershed Program Manager Name: Delivery Method: HAND - Hand Delivered Vero Days: Prior Verbal Notification: Recipient Understood Notice: Yes Recipient Signature: Yes Med Rec Note Co-signed by Attending: Coverage Notice Comment: Last DP export: 05/13/18 1:27 p Patient Name: ELSA GARCÍA Page [id number] at 143 All edits/amendments must be made on the electronic document DICTATION DATE: 05/13/18 1438 FLOWERS SALESPERSON: DORA 05/13/18 1439 RPT#: [id number] DC DATE: STATUS: ADM IN [facility] [address] [place] [address] END OF REPORT
--- NOTE | ~2018-05-10 | MORECARE ---
CASE MANAGEMENT DISCHARGE SUMMARY PATIENT: LESA GARCÍA UNIT: [id number] ADM DATE: 05/10/18 AGE: 67 : 48 SEX: F ROOM/BED: D.5148 AUTHOR: MATHEW,DOC PHYSICIAN: REFERRING PHYSICIAN: LACHELLE POSADA MD DATE OF SERVICE: 05/17/18 Discharge Plan Patient Name: ELSA GARCÍA Facility: [facility]:[place] : 1950 Planned Disposition: Nursing Facility WIL Cert Anticipated Discharge Date: Discharge Date: Expected LOS: Initial Reviewer: [id number] Initial Review Date: 05/13/2018 Generated: 05/17/18 5:43 pm Comments DCP- Discharge Planning Updated by [id number]: Mani Lisa on 05/17/18 3:[address] Patient Name: ELSA GARCÍA Admission Status: ER Accout number: [id number] Admission Date: 05-10-2018 : 1950 Admission Diagnosis:URINARY TRACT INFECTION, SITE NOT SPECIFIED Attending: LACHELLE POSADA Current LOS: 7 Anticipated DC Date: Planned Disposition: Nursing Facility [facility] Cert Primary Insurance: [facility] MEDICARE SOLUTIONS PLANNED EXTERNAL PROVIDER: [facility] MEDICAID BED Discharge Planning Comments: CM SPOKE TO BEDSIDE NURSE WHO INFORMED CM THAT SHE BELIEVES PT LIVES AT THE [facility]. CM SPOKE TO NICOLA OF THE [facility], , WHO VERIFIED PT IS IN [facility]ARE AT THE [facility]. CM SPOKE TO PT IN ROOM WHO INITIALLY STATES NO, SHE DOES NOT LIVE THERE AND THEN CLARIFIED, SHE IS STAYING THERE SHORT TERM AND IS NOT RECEIVIING ANY PHYSICAL THERAPY SERVICES. PT IN AGREEMENT WITH RETURN TO THE [facility] AT DISCHARGE. CM NOTIFIED NICOLA OF [facility]. CM FAXED UPDATE TO THE [facility] VIA NICOLA AT [phone]. CM CALLED ALLIE AT [facility], CANCELLED HOME HEALTH REFERRAL. FOR DISCHARGE, FAX DISCHARGE INFORMATION TO THE [facility], , NURSE REPORT TO BE CALLED TO THE [facility] AT [phone]. PT TO TRANSPORT VIA AMBULANCE. Statistical Assistant: Mani Lisa DCP- Discharge Planning Updated by [id number]: Mani Lisa on 05/17/18 9:[address] Patient Name: ELSA GARCÍA Encounter No: [id number] : 1950 Primary Insurance: [facility] MEDICARE SOLUTIONS Anticipated DC Date: Planned Disposition: Home with Home Health External Planned Provider: [facility] DCP follow-up note: CM MET WITH PT IN ROOM TO DISCUSS DISCHARGE NEEDS AND PLANNING. CM DISCUSSED AVAILABILITY OF HOME HEALTH, REHAB SERVICES AND MEDICAL EQUIPMENT. PT DENIES NEED FOR REHAB PLACEMENT, PLANS TO RETURN HOME AT DISCHARGE WITH [facility] PREVIOUSLY DISCUSSED. AMBULANCE TO TRANSPORT HOME AT DISCHARGE. IMPORTANT MESSAGE FROM MEDICARE PROVIDED AND EXPLAINED. CM CALLED [facility], , SPOKE TO ALLIE WHO TOOK REFERRAL INFORMATION, [facility] IS IN NETWORK WITH PT'S INSURANCE. CM FAXED REFERRAL FOR HOME HEALTH TO [facility] AT [phone]. CM WAITING COMPLETION OF PHYSICAL THERAPY EVALUATION AND WOUND CARE CONSULT TO OBTAIN SPECIFIC HOME HEALTH ORDERS FROM PHYSICIAN. FOR DISCHARGE, CM WILL NEED SPECIFIC HOME HEALTH ORDERS AND TO NOTIFY [facility] AT [phone]; FAX DISCHARGE INFORMATION TO [facility] AT [phone]. Mani Lisa, CASE MANAGEMENT DCP- Discharge Planning Updated by [id number]: Mani Lisa on 05/13/18 2:[address] Patient Name: ELSA GARCÍA Admission Status: ER Accout number: [id number] Admission Date: 05-10-2018 : 1950 Admission Diagnosis:URINARY TRACT INFECTION, SITE NOT SPECIFIED Attending: LACHELLE POSADA Current LOS: 3 Anticipated DC Date: Planned Disposition: Home with Home Health Primary Insurance: [facility] MEDICARE SOLUTIONS PLANNED EXTERNAL PROVIDER: [facility] Discharge Planning Comments: CM MET WITH PT IN ROOM TO DISCUSS DISCHARGE PLANNING AND NEEDS. PT REPORTS LIVING AT HOME DEPENDENTLY ON CAREGIVER SERVICES FROM HER NIECE WHO IS PAID BY MEDICAID. PT HAS ASSISTANCE WITH TRANSFERS TO HER WHEELCHAIR AND THEN PT IS ABLE TO GET AROUND THE HOUSE. PT REPORTS HAVING HOSPITAL BED, [place]ICK LIFT, POWER SCOOTER, WHEELCHAIR ALL PROVIDED BY [facility] PATIENT. PT HAS NO NO OTHER OUTSIDE SERVICES ASSISTING IN THE HOME AT THIS TIME. CM DISCUSSED AVAILABILITY OF HOME HEALTH, REHAB SERVICES AND MEDICAL EQUIPMENT. PT REPORTS HAVING HOME HEALTH WITH [facility] IN THE [facility]ST [facility] AND THINKS SHE MAY NEED HOME HEALTH AT DISCHARGE AGAIN. PT SIGNED CHOICE FOR [facility]. PT REPORTS NEEDING AMBULANCE FOR DISCHARGE HOME. IMPORTANT MESSAGE FROM MEDICARE PROVIDED AND EXPLAINED. CM [facility], , IF NEEDED AND WITH DOCTOR AGREEMENT AND SPECIFIC HOME HEALTH ORDERS. CM TO FOLLOW AND ASSIST NEEDED. Statistical Assistant: Mani Lisa DCPIA - Discharge Planning Initial Assessment Updated by AVA: Mani Lisa on 05/17/18 4:32 pm * Is the patient Alert and Oriented? Yes * How many steps to enter\exit or inside your home? NONE * PCP DR. AZUL * Pharm[facility] * Preadmission Environment Long-Term [facility] * Facility Name [facility], * ADLs Partial Dependent * Partial ADLs (Assistance needed) Ambulation Bathing Dressing Medication Management Toileting Transfers * Equipment Other * Other Equipment ALL MEDICAL EQUIPMENT PROVIDED [facility] * List name and contact numbers for known caregivers / representatives who currently or will assist patient after discharge: VANESSA HEAD, * Verbal permission to speak to the caregivers and representatives has been obtained from the patient. N/A * Community resources currently utilized Private Duty Care * Please name any agencies selected above. NONE * Additional services required to return to the preadmission environment? No * Can the patient safely return to the preadmission environment? Yes * Has this patient been hospitalized within the prior 30 days at any hospital? No Coverage Notice Reviewer: AVA Lisa Notice Issued Date-Time: 05/13/2018 13:15 Notice Type: Patient Choice Letter Notice Delivered To: Patient Relationship to Patient: Mathematician Name: Delivery Method: HAND - Hand Delivered Vero Days: Prior Verbal Notification: Recipient Understood Notice: Yes Recipient Signature: Yes Med Rec Note Co-signed by Attending: Coverage Notice Comment: [facility] Reviewer: AVA Lisa Notice Issued Date-Time: 05/13/2018 13:15 Notice Type: IM Discharge Notice Notice Delivered To: Patient Relationship to Patient: Mathematician Name: Delivery Method: HAND - Hand Delivered Vero Days: Prior Verbal Notification: Recipient Understood Notice: Yes Recipient Signature: Yes Med Rec Note Co-signed by Attending: Coverage Notice Comment: Reviewer: AVA Lisa Notice Issued Date-Time: 05/17/2018 10:50 Notice Type: IM Discharge Notice Notice Delivered To: Patient Relationship to Patient: Mathematician Name: Delivery Method: HAND - Hand Delivered Vero Days: Prior Verbal Notification: Recipient Understood Notice: Yes Recipient Signature: Yes Med Rec Note Co-signed by Attending: Coverage Notice Comment: Last DP export: 05/17/18 3:35 p Patient Name: ELSA GARCÍA Page [id number] at 1644 All edits/amendments must be made on the electronic document DICTATION DATE: 05/17/181642 PRACTICE OFFICE ASSOCIATE: DORA 05/17/181642 RPT#: [id number] DC DATE: STATUS: ADM IN [facility] [address] [place] [address] END OF REPORT
--- NOTE | ~2018-05-10 | MORECARE ---
CASE MANAGEMENT DISCHARGE SUMMARY PATIENT: ELSA GARCÍA UNIT: [id number] ADM DATE: 05/10/18 AGE: 67 : 48 SEX: F ROOM/BED: D.5260 AUTHOR: MATHEW,DOC PHYSICIAN: REFERRING PHYSICIAN: LACHELLE POSADA MD DATE OF SERVICE: 05/17/18 Discharge Plan Patient Name: ELSA GARCÍA Facility: [facility]:[place] : 1950 Planned Disposition: Nursing Facility WIL Cert Anticipated Discharge Date: Discharge Date: Expected LOS: Initial Reviewer: [id number] Initial Review Date: 05/13/2018 Generated: 05/17/18 5:35 pm Comments DCP- Discharge Planning Updated by AVA: Mani Lisa on 05/17/18 9:[address] Patient Name: ELSA GARCAÍ Encounter No: [id number] : 1950 Primary Insurance: [facility] MEDICARE SOLUTIONS Anticipated DC Date: Planned Disposition: Home with Home Health External Planned Provider: [facility] DCP follow-up note: CM MET WITH PT IN ROOM TO DISCUSS DISCHARGE NEEDS AND PLANNING. CM DISCUSSED AVAILABILITY OF HOME HEALTH, REHAB SERVICES AND MEDICAL EQUIPMENT. PT DENIES NEED FOR REHAB PLACEMENT, PLANS TO RETURN HOME AT DISCHARGE WITH [facility] PREVIOUSLY DISCUSSED. AMBULANCE TO TRANSPORT HOME AT DISCHARGE. IMPORTANT MESSAGE FROM MEDICARE PROVIDED AND EXPLAINED. CM CALLED [facility], , SPOKE TO ALLIE WHO TOOK REFERRAL INFORMATION, [facility] IS IN NETWORK WITH PT'S INSURANCE. CM FAXED REFERRAL FOR HOME HEALTH TO [facility] AT [phone]. CM WAITING COMPLETION OF PHYSICAL THERAPY EVALUATION AND WOUND CARE CONSULT TO OBTAIN SPECIFIC HOME HEALTH ORDERS FROM PHYSICIAN. FOR DISCHARGE, CM WILL NEED SPECIFIC HOME HEALTH ORDERS AND TO NOTIFY [facility] AT [phone]; FAX DISCHARGE INFORMATION TO [facility] AT [phone]. VU Sinha DCP- Discharge Planning Updated by [id number]: Mani Lisa on 05/13/18 2:[address] Patient Name: ELSA GARCÍA Admission Status: ER Accout number: [id number] Admission Date: 05-10-2018 : 1950 Admission Diagnosis:URINARY TRACT INFECTION, SITE NOT SPECIFIED Attending: LACHELLE POSADA Current LOS: 3 Anticipated DC Date: Planned Disposition: Home with Home Health Primary Insurance: [facility] MEDICARE SOLUTIONS PLANNED EXTERNAL PROVIDER: [facility] Discharge Planning Comments: CM MET WITH PT IN ROOM TO DISCUSS DISCHARGE PLANNING AND NEEDS. PT REPORTS LIVING AT HOME DEPENDENTLY ON CAREGIVER SERVICES FROM HER NIECE WHO IS PAID BY MEDICAID. PT HAS ASSISTANCE WITH TRANSFERS TO HER WHEELCHAIR AND THEN PT IS ABLE TO GET AROUND THE HOUSE. PT REPORTS HAVING HOSPITAL BED, NICK LIFT, POWER SCOOTER, WHEELCHAIR ALL PROVIDED BY [facility] PATIENT. PT HAS NO NO OTHER OUTSIDE SERVICES ASSISTING IN THE HOME AT THIS TIME. CM DISCUSSED AVAILABILITY OF HOME HEALTH, REHAB SERVICES AND MEDICAL EQUIPMENT. PT REPORTS HAVING HOME HEALTH WITH [facility] IN THE [facility] AND THINKS SHE MAY NEED HOME HEALTH AT DISCHARGE AGAIN. PT SIGNED CHOICE FOR [facility]. PT REPORTS NEEDING AMBULANCE FOR DISCHARGE HOME. IMPORTANT MESSAGE FROM MEDICARE PROVIDED AND EXPLAINED. CM TO ARRANGE HOME HEALTH WITH [facility] [facility], , IF NEEDED AND WITH DOCTOR AGREEMENT AND SPECIFIC HOME HEALTH ORDERS. CM TO FOLLOW AND ASSIST NEEDED. Studio Associate: Mani Lisa DCPIA - Discharge Planning Initial Assessment Updated by [id number]: Mani Lisa on 05/17/18 4:32 pm * Is the patient Alert and Oriented? Yes * How many steps to enter\exit or inside your home? NONE * PCP DR. AZUL * [facility] * Preadmission Environment Airport Maintenance Chief [facility] * Facility Name [facility], * ADLs Partial Dependent * Partial ADLs (Assistance needed) Ambulation Bathing Dressing Medication Management Toileting Transfers * Equipment Other * Other Equipment ALL MEDICAL EQUIPMENT PROVIDED BY NURSING HOME FACILITY * List name and contact numbers for known caregivers / representatives who currently or will assist patient after discharge: VANESSA HEAD, * Verbal permission to speak to the caregivers and representatives has been obtained from the patient. N/A * Community resources currently utilized Private Duty Care * Please name any agencies selected above. NONE * Additional services required to return to the preadmission environment? No * Can the patient safely return to the preadmission environment? Yes * Has this patient been hospitalized within the prior 30 days at any hospital? No External Providers [facility] Next Contact Date: 05/18/2018 Service Request Date: Service Type: Resolution: Reviewer: Comments: Coverage Notice Reviewer: AVA Lisa Notice Issued Date-Time: 05/13/2018 13:15 Notice Type: Patient Choice Letter Notice Delivered To: Patient Relationship to Patient: Payroll And Benefits Coordinator Name: Delivery Method: HAND - Hand Delivered Vero Days: Prior Verbal Notification: Recipient Understood Notice: Yes Recipient Signature: Yes Med Rec Note Co-signed by Attending: Coverage Notice Comment: [facility] Reviewer: AVA Lisa Notice Issued Date-Time: 05/13/2018 13:15 Notice Type: IM Discharge Notice Notice Delivered To: Patient Relationship to Patient: Payroll And Benefits Coordinator Name: Delivery Method: HAND - Hand Delivered Vero Days: Prior Verbal Notification: Recipient Understood Notice: Yes Recipient Signature: Yes Med Rec Note Co-signed by Attending: Coverage Notice Comment: Reviewer: AVA Lisa Notice Issued Date-Time: 05/17/2018 10:50 Notice Type: IM Discharge Notice Notice Delivered To: Patient Relationship to Patient: Payroll And Benefits Coordinator Name: Delivery Method: HAND - Hand Delivered Vero Days: Prior Verbal Notification: Recipient Understood Notice: Yes Recipient Signature: Yes Med Rec Note Co-signed by Attending: Coverage Notice Comment: Last DP export: 05/17/18 9:33 a Patient Name: ELSA GARCÍA Page 52580 at 1636 All edits/amendments must be made on the electronic document DICTATION DATE: 05/17/18 1635 ENVIRONMENTAL EMERGENCIES PLANNER: DORA 05/17/18 1635 RPT#: [id number] DC DATE: STATUS: ADM IN [facility] [address] [place] [address] END OF REPORT
--- NOTE | ~2018-05-10 | MORECARE ---
CASE MANAGEMENT DISCHARGE SUMMARY PATIENT: ELSA GARCÍA UNIT: [id number] ADM DATE: 05/10/18 AGE: 67 : 48 SEX: F ROOM/BED: D.1560 AUTHOR: WIL CARMONA PHYSICIAN: REFERRING PHYSICIAN: LACHELLE POSADA MD DATE OF SERVICE: 05/13/18 Discharge Plan Patient Name: ELSA GARCÍA Facility: [facility]:[place] : 1950 Planned Disposition: Home with Home Health Anticipated Discharge Date: Discharge Date: Expected LOS: Initial Reviewer: [id number] Initial Review Date: 05/13/2018 Generated: 05/13/18 2:52 pm Coverage Notice Reviewer: [id number] Sukhdeep Lisa Notice Issued Date-Time: 05/13/2018 13:15 Notice Type: Patient Choice Letter Notice Delivered To: Patient Relationship to Patient: Site Acquisition Specialist Name: Delivery Method: HAND - Hand Delivered Vero Days: Prior Verbal Notification: Recipient Understood Notice: Yes Recipient Signature: Yes Med Rec Note Co-signed by Attending: Coverage Notice Comment: [facility] Reviewer: [id number] Sukhdeep Lisa Notice Issued Date-Time: 05/13/2018 13:15 Notice Type: IM Discharge Notice Notice Delivered To: Patient Relationship to Patient: Site Acquisition Specialist Name: Delivery Method: HAND - Hand Delivered Vero Days: Prior Verbal Notification: Recipient Understood Notice: Yes Recipient Signature: Yes Med Rec Note Co-signed by Attending: Coverage Notice Comment: Patient Name: ELSA GARCÍA Page 12529 at 1352 All edits/amendments must be made on the electronic document DICTATION DATE: 05/13/18 1352 RECLAMATION KETTLE TENDER: DORA 05/13/18 1352 RPT#: [id number] [place] DATE: STATUS: ADM IN [place] [address] [place] [address] END OF REPORT
[~2018-05-10 16:26] MED LIST changes: -REQUIP1 MG PO; +ROPINIROLE HCL2 MG PO
[2018-05-10] MEDS ORDERED: COUMADIN3 MG PO (16:42)
[2018-05-10] MEDS ORDERED: BASAGLAR K100 UNIT/1 SC (16:44)
[2018-05-10] MEDS ORDERED: C-500500 M1 PO (16:47)
[2018-05-10] MEDS ORDERED: BACLOFEN20 M1 PO (16:48)
[2018-05-10] MEDS ORDERED: HUMALOG 30100 UNITS/ SC (16:50)
[2018-05-10] MEDS ORDERED: MULTI-DAY VITAM1 TAB PO (16:51)
[2018-05-10 17:18] LABS: APPEARANCE TURBID (CLEAR); BILIRUBIN NEGATIVE (NEGATIVE); COLOR BROWN (YELLOW); GLUCOSE NEGATIVE (NEGATIVE); KETONE NEGATIVE (NEGATIVE); NITRITE NEGATIVE (NEGATIVE); PROTEIN 1+ mg/dL (NEGATIVE); UROBILINOGEN NORMAL (NORMAL)
[2018-05-10 17:19] LABS: BACTERIA MANY /hpf (NONE SEEN); RED CELLS - URINE 25-50 /hpf (0-5); WHITE CELLS - URINE >50 /hpf (0-5)
[2018-05-10 17:59] LABS: BASOPHILS 0.6 % (0-2); EOSINOPHILS 3.6 % (0-7); HEMATOCRIT 34.3 % (36.0-48.0); HEMOGLOBIN 10.8 g/dL (12-16); IMMATURE GRANULOCYTES 0.1 % (0-5); LYMPHOCYTES 34.3 % (15-50); MCH 24.9 pg (26.0-34.0); MCHC 31.5 g/dL (31.0-37.0); MEAN PLATELET VOLUME 9.5 fL (7.4-10.4); MONOCYTES 8.2 % (2-11); NEUTROPHILS 53.2 % (40-80); PLATELET COUNT 333 10x3/uL (130-400); RBC 4.34 10x6/uL (4.00-5.40); RDW 17.5 % (11.5-14.5); WBC 6.9 10x3/uL (4.8-10.8)
[2018-05-10 18:28] LABS: ANION GAP 18.3 mmol/L (8-16); BILIRUBIN - TOTAL 0.27 mg/dL (0.2-1.3); CALCIUM 8.8 mg/dL (8.5-10.1); CARBON DIOXIDE 20.1 mmol/L (21.0-32.0); POTASSIUM - SERUM 4.4 mmol/L (3.5-5.1)
[2018-05-10 18:29] LABS: ALBUMIN 2.7 g/dL (3.4-5.0); CREATININE - SERUM 4.4 mg/dL (0.6-1.3)
[2018-05-11 01:10] VITALS: BP 126/75
[2018-05-11] MEDS ORDERED: NORCO 5/325 TAB1 TAB PO (03:13)
[2018-05-11] MEDS ORDERED: TOUJEO SOL300 UNIT/1 SC (03:15)
[2018-05-11 04:52] LABS: BASOPHILS 0.4 % (0-2); EOSINOPHILS 2.9 % (0-7); HEMATOCRIT 33.3 % (36.0-48.0); HEMOGLOBIN 10.3 g/dL (12-16); LYMPHOCYTES 33.8 % (15-50); MCH 24.6 pg (26.0-34.0); MCHC 30.9 g/dL (31.0-37.0); MCV 79.7 fL (80.0-100.0); MEAN PLATELET VOLUME 9.5 fL (7.4-10.4); MONOCYTES 8.6 % (2-11); NEUTROPHILS 54.3 % (40-80); PLATELET COUNT 304 10x3/uL (130-400); RBC 4.18 10x6/uL (4.00-5.40); RDW 17.7 % (11.5-14.5); WBC 7.2 10x3/uL (4.8-10.8)
[2018-05-11 05:16] VITALS: BP 126/75; BMI 42.4
[2018-05-11 05:20] LABS: ANION GAP 18.4 mmol/L (8-16); CALCIUM 8.6 mg/dL (8.5-10.1); CARBON DIOXIDE 19.1 mmol/L (21.0-32.0); MAGNESIUM - SERUM 2.4 mg/dL (1.8-2.4); PHOSPHOROUS 4.1 mg/dL (2.5-4.9); POTASSIUM - SERUM 4.5 mmol/L (3.5-5.1)
[2018-05-11 06:23] VITALS: BP 105/57
[2018-05-11 13:19] VITALS: BP 119/38
[2018-05-11 13:39] VITALS: BMI 42.3
[2018-05-11 14:44] LABS: INR 2.54 (0.85-1.17); PROTIME 26.7 SECONDS (11.6-15.0)
[2018-05-11 15:46] LABS: % SATURATION 5 % (15-55); IRON 22 ug/dl (35-150); TOTAL IRON BIND CAPACITY 438 ug/dl (260-445); UNSAT IRON BIND CAPACITY 416 ug/dl (150-375)
[2018-05-11 16:36] VITALS: BP 136/61
[2018-05-11 20:00] VITALS: BP 117/56
[2018-05-12] VITALS: BP 109/59
[2018-05-12 04:00] VITALS: BP 125/86
[2018-05-12 06:08] LABS: BASOPHILS 0.4 % (0-2); EOSINOPHILS 3.9 % (0-7); HEMOGLOBIN 10.1 g/dL (12-16); IMMATURE GRANULOCYTES 0.2 % (0-5); LYMPHOCYTES 38.2 % (15-50); MCH 24.8 pg (26.0-34.0); MCHC 30.6 g/dL (31.0-37.0); MCV 80.9 fL (80.0-100.0); MEAN PLATELET VOLUME 9.7 fL (7.4-10.4); MONOCYTES 7.2 % (2-11); NEUTROPHILS 50.1 % (40-80); PLATELET COUNT 258 10x3/uL (130-400); RBC 4.08 10x6/uL (4.00-5.40); RDW 18.1 % (11.5-14.5)
[2018-05-12 06:26] LABS: ALBUMIN 2.4 g/dL (3.4-5.0); ANION GAP 18.4 mmol/L (8-16); BILIRUBIN - TOTAL 0.18 mg/dL (0.2-1.3); CALCIUM 8.2 mg/dL (8.5-10.1); CARBON DIOXIDE 22.3 mmol/L (21.0-32.0); CREATININE - SERUM 3.6 mg/dL (0.6-1.3); MAGNESIUM - SERUM 2.3 mg/dL (1.8-2.4); PHOSPHOROUS 3.9 mg/dL (2.5-4.9); POTASSIUM - SERUM 4.7 mmol/L (3.5-5.1); PROTEIN - SERUM 6.4 g/dL (6.4-8.2)
[2018-05-12 06:39] LABS: WBC 5.1 10x3/uL (4.8-10.8)
[2018-05-12 10:21] LABS: FOLATE (FOLIC ACID) - SERUM 5.6 ng/mL (>3.0)
[2018-05-12 16:31] VITALS: Ht 165.1 cm; Wt 125.2 kg
[2018-05-12 16:56] VITALS: BP 109/34
[2018-05-12 20:45] VITALS: BP 130/55
[2018-05-13] VITALS: BP 124/45
[2018-05-13 04:00] VITALS: BP 133/68
[2018-05-13 06:24] LABS: INR 2.22 (0.85-1.17)
[2018-05-13 06:28] LABS: ALBUMIN 2.1 g/dL (3.4-5.0); ANION GAP 14.6 mmol/L (8-16); BILIRUBIN - TOTAL 0.23 mg/dL (0.2-1.3); CARBON DIOXIDE 25.2 mmol/L (21.0-32.0); CREATININE - SERUM 3.5 mg/dL (0.6-1.3); PROTEIN - SERUM 6.6 g/dL (6.4-8.2)
[2018-05-13 06:31] LABS: PHOSPHOROUS 2.6 mg/dL (2.5-4.9); POTASSIUM - SERUM 3.8 mmol/L (3.5-5.1)
[2018-05-13 06:40] LABS: BASOPHILS 0.2 % (0-2); EOSINOPHILS 3.8 % (0-7); HEMATOCRIT 29.2 % (36.0-48.0); IMMATURE GRANULOCYTES 0.2 % (0-5); LYMPHOCYTES 32.8 % (15-50); MCH 24.4 pg (26.0-34.0); MCHC 30.8 g/dL (31.0-37.0); MCV 79.1 fL (80.0-100.0); MEAN PLATELET VOLUME 9.5 fL (7.4-10.4); MONOCYTES 5.9 % (2-11); NEUTROPHILS 57.1 % (40-80); PLATELET COUNT 242 10x3/uL (130-400); RBC 3.69 10x6/uL (4.00-5.40); RDW 17.6 % (11.5-14.5); WBC 5.2 10x3/uL (4.8-10.8)
[2018-05-13 08:07] VITALS: BP 149/69
[2018-05-13 11:44] VITALS: BP 108/40
[2018-05-13 15:40] VITALS: BP 130/46
[2018-05-13 16:16] LABS: INR 1.87 (0.85-1.17); PROTIME 20.9 SECONDS (11.6-15.0)
[2018-05-13 16:22] LABS: APPEARANCE TURBID (CLEAR); BILIRUBIN NEGATIVE (NEGATIVE); COLOR YELLOW (YELLOW); GLUCOSE NEGATIVE (NEGATIVE); KETONE NEGATIVE (NEGATIVE); NITRITE NEGATIVE (NEGATIVE); PROTEIN 1+ mg/dL (NEGATIVE); UROBILINOGEN NORMAL (NORMAL); WHITE CELLS - URINE >50 /hpf (0-5)
[2018-05-13 16:23] LABS: BACTERIA MANY /hpf (NONE SEEN)
[2018-05-13 21:00] VITALS: BP 196/75
[2018-05-14] VITALS: BP 172/74
[2018-05-14 04:00] VITALS: BP 170/78
[2018-05-14 07:02] LABS: BASOPHILS 0.3 % (0-2); HEMATOCRIT 29.6 % (36.0-48.0); HEMOGLOBIN 9.1 g/dL (12-16); IMMATURE GRANULOCYTES 0.2 % (0-5); LYMPHOCYTES 14.8 % (15-50); MCH 24.3 pg (26.0-34.0); MCHC 30.7 g/dL (31.0-37.0); MCV 78.9 fL (80.0-100.0); MEAN PLATELET VOLUME 9.4 fL (7.4-10.4); MONOCYTES 2.8 % (2-11); NEUTROPHILS 79.9 % (40-80); PLATELET COUNT 242 10x3/uL (130-400); RBC 3.75 10x6/uL (4.00-5.40); RDW 17.2 % (11.5-14.5); WBC 6.1 10x3/uL (4.8-10.8)
[2018-05-14 07:25] LABS: ALBUMIN 2.2 g/dL (3.4-5.0); ANION GAP 13.3 mmol/L (8-16); BILIRUBIN - TOTAL 0.24 mg/dL (0.2-1.3); CARBON DIOXIDE 28.2 mmol/L (21.0-32.0); CREATININE - SERUM 3.2 mg/dL (0.6-1.3); MAGNESIUM - SERUM 1.9 mg/dL (1.8-2.4); PHOSPHOROUS 2.5 mg/dL (2.5-4.9); POTASSIUM - SERUM 3.5 mmol/L (3.5-5.1); PROTEIN - SERUM 6.6 g/dL (6.4-8.2)
[2018-05-14 07:58] VITALS: BP 131/38
[2018-05-14 12:05] VITALS: BP 125/39
[2018-05-14 15:53] VITALS: BP 115/53
[2018-05-14 20:45] VITALS: BP 118/51
[2018-05-15 01:15] VITALS: BP 149/58
[2018-05-15 04:30] VITALS: BP 112/50
[2018-05-15 07:31] LABS: BASOPHILS 0.3 % (0-2); EOSINOPHILS 2.4 % (0-7); HEMOGLOBIN 8.8 g/dL (12-16); IMMATURE GRANULOCYTES 0.3 % (0-5); LYMPHOCYTES 21.7 % (15-50); MCH 24.2 pg (26.0-34.0); MCHC 30.3 g/dL (31.0-37.0); MCV 79.7 fL (80.0-100.0); MEAN PLATELET VOLUME 9.4 fL (7.4-10.4); MONOCYTES 6.7 % (2-11); NEUTROPHILS 68.6 % (40-80); PLATELET COUNT 227 10x3/uL (130-400); RBC 3.64 10x6/uL (4.00-5.40); RDW 17.1 % (11.5-14.5); WBC 7.5 10x3/uL (4.8-10.8)
[2018-05-15 07:55] LABS: ANION GAP 11.3 mmol/L (8-16); BILIRUBIN - TOTAL 0.2 mg/dL (0.2-1.3); CALCIUM 7.7 mg/dL (8.5-10.1); CARBON DIOXIDE 30.1 mmol/L (21.0-32.0); CREATININE - SERUM 3.1 mg/dL (0.6-1.3); MAGNESIUM - SERUM 1.8 mg/dL (1.8-2.4); PHOSPHOROUS 2.3 mg/dL (2.5-4.9); POTASSIUM - SERUM 3.4 mmol/L (3.5-5.1); PROTEIN - SERUM 6.4 g/dL (6.4-8.2)
[2018-05-15 08:26] VITALS: BP 126/50
[2018-05-15 13:39] VITALS: BP 98/44
[2018-05-15 17:13] VITALS: BP 112/49
[2018-05-15 20:23] VITALS: BP 111/53
[2018-05-16 01:20] VITALS: BP 111/51
[2018-05-16 05:15] VITALS: BP 120/55
[2018-05-16 05:17] LABS: BASOPHILS 0.2 % (0-2); EOSINOPHILS 2.5 % (0-7); HEMATOCRIT 28.5 % (36.0-48.0); HEMOGLOBIN 8.7 g/dL (12-16); IMMATURE GRANULOCYTES 0.2 % (0-5); LYMPHOCYTES 18.8 % (15-50); MCH 24.2 pg (26.0-34.0); MCHC 30.5 g/dL (31.0-37.0); MCV 79.4 fL (80.0-100.0); MEAN PLATELET VOLUME 9.9 fL (7.4-10.4); MONOCYTES 6.6 % (2-11); NEUTROPHILS 71.7 % (40-80); PLATELET COUNT 218 10x3/uL (130-400); RBC 3.59 10x6/uL (4.00-5.40); RDW 17.1 % (11.5-14.5); WBC 8.3 10x3/uL (4.8-10.8)
[2018-05-16 05:39] LABS: INR 2.37 (0.85-1.17); PROTIME 25.2 SECONDS (11.6-15.0)
[2018-05-16 05:43] LABS: ALBUMIN 1.8 g/dL (3.4-5.0); ANION GAP 11.6 mmol/L (8-16); BILIRUBIN - TOTAL 0.17 mg/dL (0.2-1.3); CALCIUM 7.6 mg/dL (8.5-10.1); CARBON DIOXIDE 29.8 mmol/L (21.0-32.0); CREATININE - SERUM 2.8 mg/dL (0.6-1.3); MAGNESIUM - SERUM 1.7 mg/dL (1.8-2.4); POTASSIUM - SERUM 3.4 mmol/L (3.5-5.1); PROTEIN - SERUM 5.9 g/dL (6.4-8.2)
[2018-05-16 08:14] VITALS: BP 135/50
[2018-05-16 11:51] VITALS: BP 107/38
[2018-05-16 16:04] VITALS: BP 119/62
[2018-05-16 22:03] VITALS: BP 112/55; BP 116/66
[2018-05-17 01:13] VITALS: BP 129/65
[2018-05-17 05:01] VITALS: BP 129/72
[2018-05-17 08:13] VITALS: BP 115/49
[2018-05-17 11:35] VITALS: BP 121/44
[2018-05-17 12:36] LABS: BASOPHILS 0.1 % (0-2); EOSINOPHILS 3.1 % (0-7); HEMATOCRIT 28.8 % (36.0-48.0); HEMOGLOBIN 8.9 g/dL (12-16); IMMATURE GRANULOCYTES 0.4 % (0-5); LYMPHOCYTES 20.7 % (15-50); MCH 24.7 pg (26.0-34.0); MCHC 30.9 g/dL (31.0-37.0); MCV 79.8 fL (80.0-100.0); MONOCYTES 4.5 % (2-11); NEUTROPHILS 71.2 % (40-80); PLATELET COUNT 197 10x3/uL (130-400); RBC 3.61 10x6/uL (4.00-5.40); RDW 17.2 % (11.5-14.5)
[2018-05-17 12:49] LABS: ANION GAP 13.5 mmol/L (8-16); CALCIUM 7.3 mg/dL (8.5-10.1); CARBON DIOXIDE 25.8 mmol/L (21.0-32.0); CREATININE - SERUM 2.8 mg/dL (0.6-1.3)
[2018-05-17 12:52] LABS: POTASSIUM - SERUM 4.3 mmol/L (3.5-5.1)
[2018-05-17 15:28] VITALS: BP 107/57
[2018-05-17 21:01] VITALS: BP 105/52
[2018-05-18] VITALS: BP 135/50
[2018-05-18 06:11] VITALS: BP 120/47
[2018-05-18 08:30] VITALS: BP 124/64
[2018-05-18 11:37] VITALS: BP 112/51
[2018-05-18 15:34] VITALS: BP 128/56
[2018-05-18 20:33] VITALS: BP 128/46
[2018-05-19 00:34] VITALS: BP 137/56
[2018-05-19 05:43] LABS: BASOPHILS 0.3 % (0-2); EOSINOPHILS 4.2 % (0-7); HEMATOCRIT 28.4 % (36.0-48.0); HEMOGLOBIN 8.4 g/dL (12-16); IMMATURE GRANULOCYTES 0.3 % (0-5); LYMPHOCYTES 28.2 % (15-50); MCH 24.3 pg (26.0-34.0); MCHC 29.6 g/dL (31.0-37.0); MEAN PLATELET VOLUME 9.6 fL (7.4-10.4); MONOCYTES 6.7 % (2-11); NEUTROPHILS 60.3 % (40-80); PLATELET COUNT 229 10x3/uL (130-400); RBC 3.46 10x6/uL (4.00-5.40); RDW 17.5 % (11.5-14.5); WBC 7.1 10x3/uL (4.8-10.8)
[2018-05-19 06:05] LABS: ANION GAP 11.2 mmol/L (8-16); CALCIUM 7.7 mg/dL (8.5-10.1); CARBON DIOXIDE 31.4 mmol/L (21.0-32.0); CREATININE - SERUM 2.8 mg/dL (0.6-1.3); POTASSIUM - SERUM 4.6 mmol/L (3.5-5.1)
[2018-05-19 06:07] LABS: INR 2.54 (0.85-1.17); PROTIME 26.6 SECONDS (11.6-15.0)
[2018-05-19 06:14] VITALS: BP 119/56
[2018-05-19 06:18] LABS: MCV 82.1 fL (80.0-100.0)
[2018-05-19 07:49] VITALS: BP 119/46
[2018-05-19 11:33] VITALS: BP 117/58
[2018-05-19 15:57] VITALS: BP 104/38
== END 2018-05-19 18:24 | DRG 698 ==
LOC: D.ER 16:26 → D.M2 20:08 → D.EDHOLD 20:08 → D.M2 22:04
PROVIDERS: Family Medicine; Internal Medicine; Internal Medicine Nephrology; Student in an Organized Health Care Education/Training Program
DX: T83.511A Infection and inflammatory reaction due to indwelling urethral catheter, initial encounter (principal); G93.41 Metabolic encephalopathy; N17.9 Acute kidney failure, unspecified; N18.4 Chronic kidney disease, stage 4 (severe); G82.20 Paraplegia, unspecified; Z68.41 Body mass index [BMI] 40.0-44.9, adult; Y84.6 Urinary catheterization as the cause of abnormal reaction of the patient, or of later complication, without mention of misadventure at the time of the procedure; N39.0 Urinary tract infection, site not specified; I12.9 Hypertensive chronic kidney disease with stage 1 through stage 4 chronic kidney disease, or unspecified chronic kidney disease; E11.22 Type 2 diabetes mellitus with diabetic chronic kidney disease; Z99.2 Dependence on renal dialysis; Z79.4 Long term (current) use of insulin; D50.9 Iron deficiency anemia, unspecified; D63.1 Anemia in chronic kidney disease; S91.111A Laceration without foreign body of right great toe without damage to nail, initial encounter; X58.XXXA Exposure to other specified factors, initial encounter; E78.5 Hyperlipidemia, unspecified; E66.01 Morbid (severe) obesity due to excess calories; B96.4 Proteus (mirabilis) (morganii) as the cause of diseases classified elsewhere

== ENCOUNTER 2018-06-08 11:54 | Emergency (ER) | payer MEDICARE ==
[~2018-06-08] VITALS: Ht 165.1 cm; Wt 159.1 kg
[~2018-06-08 11:54] MED LIST changes: +BACLOFEN20 M1 PO; +BASAGLAR K100 UNIT/1 SC; +C-500500 M1 PO; +MULTI-DAY VITAM1 TAB PO; +NORCO 5/325 TAB1 TAB PO; +TOUJEO SOL300 UNIT/1 SC
[2018-06-08 12:06] VITALS: BP 136/77; Ht 165.1 cm; Wt 159.1 kg
== END 2018-06-08 17:45 ==
LOC: D.ER 11:54
DX: N39.0 Urinary tract infection, site not specified (principal); D64.9 Anemia, unspecified; I12.9 Hypertensive chronic kidney disease with stage 1 through stage 4 chronic kidney disease, or unspecified chronic kidney disease; N18.9 Chronic kidney disease, unspecified; E11.9 Type 2 diabetes mellitus without complications; E87.5 Hyperkalemia; E78.5 Hyperlipidemia, unspecified; I10 Essential (primary) hypertension; E66.01 Morbid (severe) obesity due to excess calories

== ENCOUNTER 2018-06-09 12:08 | Inpatient (IN) | payer MEDICARE, MEDICAID ==
[~2018-06-09] VITALS: Ht 165.1 cm; Wt 129.2 kg
--- NOTE | ~2018-06-09 | MORECARE ---
CASE MANAGEMENT DISCHARGE SUMMARY PATIENT: ELSA GARCÍA UNIT: [id number] ADM DATE: 06/09/18 AGE: 67 : 48 SEX: F ROOM/BED: D.0985 AUTHOR: WIL CARMONA PHYSICIAN: REFERRING PHYSICIAN: LANETTE AZUL MD DATE OF SERVICE: 06/17/18 Discharge Plan Patient Name: ELSA GARCÍA Facility: [facility]:[place] : 1950 Planned Disposition: Nursing Facility WIL Cert Anticipated Discharge Date: 06/17/18 Discharge Date: Expected LOS: 8 Initial Reviewer: [id number] Initial Review Date: 06/13/2018 Generated: 06/17/18 6:22 pm Comments DCP- Discharge Planning Updated by [id number]: Mani Lisa on 06/17/18 4:[address] Patient Name: ELSA GARCÍA Encounter No: [id number] : 1950 Primary Insurance: C MEDICARE SOLUTIONS Anticipated DC Date: 06-17-2018 Planned Disposition: Nursing Facility WIL Cert External Planned Provider: [facility] DCP follow-up note: CM SPOKE TO THELMA OF [facility], [facility] WILL ADMIT PT AT THE [facility] AFTER PT COMPLETES HER IV ANTIBIOTICS IN THE [facility]. FOR DISCHARGE, FAX DISCHARGE INFORMATION TO THE [facility], , NURSE REPORT TO BE CALLED TO THE [facility] AT [phone]. FAX DISCHARGE INFORMATION TO [facility] AT [phone]. PT TO TRANSPORT VIA AMBULANCE. Naval Aircrewman: Mani Lisa DCP- Discharge Planning Updated by [id number]: Mani Lisa on 06/17/18 11:[address] Patient Name: ELSA GARCÍA Encounter No: [id number] : 1950 Primary Insurance: [facility] MEDICARE SOLUTIONS Anticipated DC Date: 06-17-2018 Planned Disposition: Nursing Facility [facility] Cert External Planned Provider: [facility] MEDICAID BED Discharge Planning Comments: CM SPOKE TO PT'S KATHY, ORALIA PERALTA, AND [facility] OF [facility] AT [facility]. ORALIA IS WANTING EVALUATION FOR HOSPICE TO BE PROVIDED AT THE [facility] WITH EVENTUAL TRANSITION TO HOME WITH HOSPICE IF POSSIBLE. IMPORTANT MESSAGE FROM MEDICARE PROVIDED AND EXPLAINED. CM OBTAINED HOSPICE EVALUATION ORDER. CM PROVIDED REFERRAL PACKET TO [facility] OF [facility], FAXED REFERRAL TO [facility], . [facility] WILL ACCEPT BACK FOR CONTINUED JAIL CARE AT DISCHARGE AND CAN PROVIDE THE ROCEPHIN VIA MIDLINE AT THE RETIREMENT AND CAN ACCEPT TODAY. CM WAITING DETERMINATION FROM [facility]. FOR DISCHARGE, FAX DISCHARGE INFORMATION TO THE [facility], , NURSE REPORT TO BE CALLED TO THE [facility] AT [phone]. PT TO TRANSPORT VIA AMBULANCE. Naval Aircrewman: Mani Lisa DCP- Discharge Planning Updated by [id number]: Mani Lisa on 06/14/18 5:[address] Patient Name: ELSA GARCÍA Admission Status: ER Accout number: [id number] Admission Date: 06-09-2018 : 1950 Admission Diagnosis:SHORTNESS OF BREATH Attending: LANETTE AZUL Current LOS: 5 Anticipated DC Date: Planned Disposition: Nursing Facility [facility] Primary Insurance: [facility] MEDICARE SOLUTIONS PLANNED EXTERNAL PROVIDER: [facility] MEDICAID BED Discharge Planning Comments: CM SPOKE TO PT IN ROOM REGARDING DISCHARGE PLANNING AND NEEDS. PT REPORTS SHE IS STILL AT THE [facility] AND CAN'T GO HOME. CM SPOKE TO [facility], THEY WILL ACCEPT BACK FOR CONTINUED SEASONAL [place] BUNDLER CARE AT DISCHARGE. FOR DISCHARGE, FAX DISCHARGE INFORMATION TO THE [facility], , NURSE REPORT TO BE CALLED TO THE [facility] AT [phone]. PT TO TRANSPORT VIA AMBULANCE. Naval Aircrewman: Mani Lisa DCPIA - Discharge Planning Initial Assessment Updated by [id number]: Mani Lisa on 06/14/18 6:34 pm * Is the patient Alert and Oriented? Yes * How many steps to enter\exit or inside your home? NONE * PCP DR. AZUL * [facility] * Preadmission Environment [facility] * Facility Name [facility] * ADLs Partial Dependent * Partial ADLs (Assistance needed) Ambulation Bathing Dressing Medication Management Toileting Transfers * Equipment Other * Other Equipment ALL MEDICAL EQUIPMENT PROVIDED BY FACILITY * List name and contact numbers for known caregivers / representatives who currently or will assist patient after discharge: ORALIA PERALTA, SISTER /POA, [place] [phone] * Verbal permission to speak to the caregivers and representatives has been obtained from the patient. N/A * Community resources currently utilized None * Please name any agencies selected above. NONE * Additional services required to return to the preadmission environment? No * Can the patient safely return to the preadmission environment? Yes * Has this patient been hospitalized within the prior 30 days at any hospital? Yes Coverage Notice Reviewer: [id number] Sukhdeep Lisa Notice Issued Date-Time: 06/17/2018 12:15 Notice Type: IM Discharge Notice Notice Delivered To: Family Member Relationship to Patient: Sister Lifeguard Name: ORALIA PERALTA Delivery Method: HAND - Hand Delivered Vero Days: Prior Verbal Notification: Recipient Understood Notice: Yes Recipient Signature: Yes Med Rec Note Co-signed by Attending: Coverage Notice Comment: Last DP export: 06/17/18 11:52 a Patient Name: ELSA GARCÍA Page 25812 at 1722 All edits/amendments must be made on the electronic document DICTATION DATE: 06/17/181721 SAFETY ADMIN ASSISTANT: DORA 06/17/181721 RPT#: [id number] DC DATE: STATUS: ADM IN [address] [place] [address] END OF REPORT
--- NOTE | ~2018-06-09 | MORECARE ---
CASE MANAGEMENT DISCHARGE SUMMARY PATIENT: ELSA GARCÍA UNIT: [id number] ADM DATE: 06/09/18 AGE: 67 : 48 SEX: F ROOM/BED: D.1606 AUTHOR: MATHEW,DOC PHYSICIAN: REFERRING PHYSICIAN: LANETTE AZUL MD DATE OF SERVICE: 06/20/18 Discharge Plan Patient Name: ELSA GARCÍA Facility: [facility]:[place] : 1950 Planned Disposition: Nursing Facility WIL Cert Anticipated Discharge Date: 06/18/18 Discharge Date: 06/18/2018 Expected LOS: 9 Initial Reviewer: [id number] Initial Review Date: 06/13/2018 Generated: 06/20/18 1:29 pm Comments DCP- Discharge Planning Updated by [email or web address]: Saumya Verdin on 06/18/18 2:[address] LATE ENTRY 1308 PRIMARY NURSE ADVISED CM THAT THE PATIENT IS FOR DISCHARGE BACK TO THE [facility] TO HER FIELD CROP I FARMWORKER BED. CM CALLED [phone] AND SPOKE WITH RAMÓN. THE PATIENT CAN RETURN TODAY. PRIMARY TO FAX DISCHARGE PAPERWORK TO [phone] PRIOR TO DISCHARGING THE PATIENT. NURSE TO CALL REPORT TO [phone]. CM PROVIDED THENURSE WITH INFORMATION AND CONTACT PHONE NUMBERS. AWAIT COMPLETION OF DISCHARGE ORDERS. DCP- Discharge Planning Updated by : Mani Lisa on 06/17/18 4:[address] Patient Name: ELSA GARCÍA Encounter No: [id number] : 1950 Primary Insurance: [facility] MEDICARE SOLUTIONS Anticipated DC Date: 06-17-2018 Planned Disposition: Nursing Facility WIL Cert External Planned Provider: [facility] DCP follow-up note: CM SPOKE TO [facility]LMA OF [facility], [facility] WILL ADMIT PT AT THE [facility] AFTER PT COMPLETES HER IV ANTIBIOTICS IN THE [facility]. FOR DISCHARGE, FAX DISCHARGE INFORMATION TO THE [facility], , NURSE REPORT TO BE CALLED TO THE [facility] AT [phone]. FAX DISCHARGE INFORMATION TO [facility] AT [phone]. PT TO TRANSPORT VIA AMBULANCE. Projection Engineer: Mani Lisa DCP- Discharge Planning Updated by [id number]: Mani Lisa on 06/17/18 11:[address] Patient Name: ELSA GARCÍA Encounter No: [id number] : 1950 Primary Insurance: [facility] MEDICARE SOLUTIONS Anticipated DC Date: 06-17-2018 Planned Disposition: Nursing Facility [facility] Cert External Planned Provider: [facility] TERM CARE MEDICAID BED Discharge Planning Comments: CM SPOKE TO PT'S ORALIA CHAVEZ, AND [facility] OF [facility] AT [facility]. ORALIA IS WANTING EVALUATION FOR HOSPICE TO BE PROVIDED AT THE [facility] WITH EVENTUAL TRANSITION TO HOME WITH HOSPICE IF POSSIBLE. IMPORTANT MESSAGE FROM MEDICARE PROVIDED AND EXPLAINED. CM OBTAINED HOSPICE EVALUATION ORDER. CM PROVIDED REFERRAL PACKET TO [facility], FAXED REFERRAL TO [facility], . CM SPOKE TO [facility], THEY WILL ACCEPT BACK FOR CONTINUED NURSING HOME CARE AT DISCHARGE AND CAN PROVIDE THE ROCEPHIN VIA MIDLINE AT THE [facility] AND CAN ACCEPT TODAY. CM WAITING DETERMINATION FROM [facility]. FOR DISCHARGE, FAX DISCHARGE INFORMATION TO THE [facility], , NURSE REPORT TO BE CALLED TO THE [facility] AT [phone]. PT TO TRANSPORT VIA AMBULANCE. Projection Engineer: Mani Lisa DCP- Discharge Planning Updated by [id number]: Mani Lisa on 06/14/18 5:[address] Patient Name: ELSA GARCÍA Admission Status: ER Accout number: [id number] Admission Date: 06-09-2018 : 1950 Admission Diagnosis:SHORTNESS OF BREATH Attending: LANETTE AZUL Current LOS: 5 Anticipated DC Date: Planned Disposition: Nursing Facility [facility] Cert Primary Insurance: [facility] MEDICARE SOLUTIONS PLANNED EXTERNAL PROVIDER: [facility] LONG TERM CARE MEDICAID BED Discharge Planning Comments: CM SPOKE TO PT IN ROOM REGARDING DISCHARGE PLANNING AND NEEDS. PT REPORTS SHE IS STILL AT THE [facility] AND CAN'T GO HOME. CM SPOKE TO [facility], THEY WILL ACCEPT BACK FOR CONTINUED FIELD CROP I FARMWORKER CARE AT DISCHARGE. FOR DISCHARGE, FAX DISCHARGE INFORMATION TO THE [facility], , NURSE REPORT TO BE CALLED TO THE [facility] AT [phone]. PT TO TRANSPORT VIA AMBULANCE. Projection Engineer: Mani Lisa DCPIA - Discharge Planning Initial Assessment Updated by [email or web address]: Mani Lisa on 06/14/18 6:34 pm * Is the patient Alert and Oriented? Yes * How many steps to enter\exit or inside your home? NONE * PCP DR. AZUL * [facility] * Preadmission Environment [facility] * Facility Name [facility] * ADLs Partial Dependent * Partial ADLs (Assistance needed) Ambulation Bathing Dressing Medication Management Toileting Transfers * Equipment Other * Other Equipment ALL MEDICAL EQUIPMENT PROVIDED BY FACILITY * List name and contact numbers for known caregivers / representatives who currently or will assist patient after discharge: ORALIA PERALTA, SISTER /POA, [place] [phone] * Verbal permission to speak to the caregivers and representatives has been obtained from the patient. N/A * Community resources currently utilized None * Please name any agencies selected above. NONE * Additional services required to return to the preadmission environment? No * Can the patient safely return to the preadmission environment? Yes * Has this patient been hospitalized within the prior 30 days at any hospital? Yes Coverage Notice Reviewer: [id number] - Mani Lisa Notice Issued Date-Time: 06/17/2018 12:15 Notice Type: IM Discharge Notice Notice Delivered To: Family Member Relationship to Patient: Sister Fire Protection Engineering Technician Name: ORALIA PERALTA Delivery Method: HAND - Hand Delivered Vero Days: Prior Verbal Notification: Recipient Understood Notice: Yes Recipient Signature: Yes Med Rec Note Co-signed by Attending: Coverage Notice Comment: Last DP export: 06/18/18 3:03 p Patient Name: ELSA GARCÍA Page 50404 at 1230 All edits/amendments must be made on the electronic document DICTATION DATE: 06/20/18 1229 TOMATO PULPER OPERATOR: DORA 06/20/18 1229 RPT#: [id number] DC DATE:06/18/18 STATUS: DIS IN [facility] [address] [place] [address] END OF REPORT
--- NOTE | ~2018-06-09 | MORECARE ---
CASE MANAGEMENT DISCHARGE SUMMARY PATIENT: ELSA GARCÍA UNIT: [id number] ADM DATE: 06/09/18 AGE: 67 : 48 SEX: F ROOM/BED: D.8862 AUTHOR: MATHEW,DOC PHYSICIAN: REFERRING PHYSICIAN: LANETTE AZUL MD DATE OF SERVICE: 06/17/18 Discharge Plan Patient Name: ELSA GARCÍA Facility: [facility]:[place] : 1950 Planned Disposition: Nursing Facility WIL Cert Anticipated Discharge Date: 06/17/18 Discharge Date: Expected LOS: 8 Initial Reviewer: [id number] Initial Review Date: 06/13/2018 Generated: 06/17/18 1:52 pm Comments DCP- Discharge Planning Updated by [id number]: Mani Lisa on 06/17/18 11:[address] Patient Name: ELSA GARCÍA Encounter No: [id number] : 1950 Primary Insurance: [facility] MEDICARE SOLUTIONS Anticipated DC Date: 06-17-2018 Planned Disposition: Nursing Facility WIL Cert External Planned Provider: [facility] LONG TERM CARE MEDICAID BED Discharge Planning Comments: CM SPOKE TO PT'S ORALIA CHAVEZ, AND [facility] OF [facility] AT [facility]. ORALIA IS WANTING EVALUATION FOR HOSPICE TO BE PROVIDED AT THE [facility] WITH EVENTUAL TRANSITION TO HOME WITH HOSPICE IF POSSIBLE. IMPORTANT MESSAGE FROM MEDICARE PROVIDED AND EXPLAINED. CM OBTAINED HOSPICE EVALUATION ORDER. CM PROVIDED REFERRAL PACKET TO [facility], FAXED REFERRAL TO [facility], . CM SPOKE TO NICOLA OF THE [facility], THEY WILL ACCEPT BACK FOR CONTINUED CHILD AND FAMILY COUNSELOR CARE AT DISCHARGE AND CAN PROVIDE THE ROCEPHIN VIA MIDLINE AT THE [facility] AND CAN ACCEPT TODAY. CM WAITING DETERMINATION FROM [facility]. FOR DISCHARGE, [facility], , NURSE REPORT TO BE CALLED TO THE [facility] AT [phone]. PT TO TRANSPORT VIA AMBULANCE. Check Writer Salesperson: Mani Lisa DCP- Discharge Planning Updated by [email or web address]: Mani Lisa on 06/14/18 5:[address] Patient Name: ELSA GARCÍA Admission Status: ER Accout number: [id number] Admission Date: 06-09-2018 : 1950 Admission Diagnosis:SHORTNESS OF BREATH Attending: LANETTE AZUL Current LOS: 5 Anticipated DC Date: Planned Disposition: Nursing Facility [facility] Primary Insurance: [facility] MEDICARE SOLUTIONS PLANNED EXTERNAL PROVIDER: [facility] LONG TERM CARE MEDICAID BED Discharge Planning Comments: CM SPOKE TO PT IN ROOM REGARDING DISCHARGE PLANNING AND NEEDS. PT REPORTS [facility] AND [facility]T GO HOME. CM SPOKE TO NICOLA OF THE [facility], THEY WILL ACCEPT BACK FOR CONTINUED CHILD AND FAMILY COUNSELOR CARE AT DISCHARGE. FOR DISCHARGE, [facility] DISCHAR[facility] INFORMATION [facility], , NURSE REPORT TO BE CALLED TO THE [facility] AT [phone]. PT TO TRANSPORT VIA AMBULANCE. Check Writer Salesperson: Mani Lisa DCPIA - Discharge Planning Initial Assessment Updated by [id number]: Mani Lisa on 06/14/18 6:34 pm * Is the patient Alert and Oriented? Yes * How many steps to enter\exit or inside your home? NONE * PCP DR. AZUL * [facility] * Preadmission Environment [facility] * Facility [facility] * ADLs Partial Dependent * Partial ADLs (Assistance needed) Ambulation Bathing Dressing Medication Management Toileting Transfers * Equipment Other * Other Equipment ALL MEDICAL EQUIPMENT PROVIDED BY FACILITY * List name and contact numbers for known caregivers / representatives who currently or will assist patient after discharge: ORALIA PERALTA, SISTER /POA, [place] [phone] * Verbal permission to speak to the caregivers and representatives has been obtained from the patient. N/A * Community resources currently utilized None * Please name any agencies selected above. NONE * Additional services required to return to the preadmission environment? No * Can the patient safely return to the preadmission environment? Yes * Has this patient been hospitalized within the prior 30 days at any hospital? Yes Coverage Notice Reviewer: [id number] - Mani Lisa Notice Issued Date-Time: 06/17/2018 12:15 Notice Type: IM Discharge Notice Notice Delivered To: Family Member Relationship to Patient: Sister Shake Backboard Notcher Name: ORALIA PERALTA Delivery Method: HAND - Hand Delivered Vero Days: Prior Verbal Notification: Recipient Understood Notice: Yes Recipient Signature: Yes Med Rec Note Co-signed by Attending: Coverage Notice Comment: Last DP export: 06/17/18 11:45 a Patient Name: ELSA GARCÍA Page 87219 at 1252 All edits/amendments must be made on the electronic document DICTATION DATE: 06/17/18 1252 AIR DRIER: DORA 06/17/18 1252 RPT#: [id number] DC DATE: STATUS: ADM IN [facility] [address] [place] [address] END OF REPORT
--- NOTE | ~2018-06-09 | MORECARE ---
CASE MANAGEMENT DISCHARGE SUMMARY PATIENT: ELSA GARCÍA UNIT: [id number] ADM DATE: 06/09/18 AGE: 67 : 48 SEX: F ROOM/BED: D.5877 AUTHOR: MATHEW,DOC PHYSICIAN: REFERRING PHYSICIAN: LANETTE AZUL MD DATE OF SERVICE: 06/14/18 Discharge Plan Patient Name: ELSA GARCÍA Facility: [facility]:[place] : 1950 Planned Disposition: Nursing Facility WIL Cert Anticipated Discharge Date: Discharge Date: Expected LOS: Initial Reviewer: [id number] Initial Review Date: 06/13/2018 Generated: 06/14/18 7:39 pm Comments DCP- Discharge Planning Updated by [id number]: Mani Lisa on 06/14/18 5:[address] Patient Name: ELSA GARCÍA Admission Status: ER Accout number: [id number] Admission Date: 06-09-2018 : 1950 Admission Diagnosis:SHORTNESS OF BREATH Attending: LANETTE AZUL Current LOS: 5 Anticipated DC Date: Planned Disposition: Nursing Facility [facility] Cert Primary Insurance: [facility] MEDICARE SOLUTIONS PLANNED EXTERNAL PROVIDER: [facility] LONG TERM CARE MEDICAID BED Discharge Planning Comments: CM SPOKE TO PT IN ROOM REGARDING DISCHARGE PLANNING AND NEEDS. PT REPORTS SHE IS STILL AT THE [facility] AND CAN'T GO HOME. CM SPOKE [facility], THEY WILL ACCEPT BACK FOR CONTINUED HALF-WAY CARE AT DISCHARGE. FOR DISCHARGE, FAX DISCHARGE INFORMATION TO THE [facility], , NURSE REPORT TO BE CALLED TO THE [facility] AT [phone]. PT TO TRANSPORT VIA AMBULANCE. Group Contract Analyst: Mani Lisa DCPIA - Discharge Planning Initial Assessment Updated by [email or web address]: Mani Lisa on 06/14/18 6:34 pm * Is the patient Alert and Oriented? Yes * How many steps to enter\exit or inside your home? NONE * PCP DR. AZUL * [facility] * Preadmission Environment [facility] * Facility Name [facility] * ADLs Partial Dependent * Partial ADLs (Assistance needed) Ambulation Bathing Dressing Medication Management Toileting Transfers * Equipment Other * Other Equipment ALL MEDICAL EQUIPMENT PROVIDED BY FACILITY * List name and contact numbers for known caregivers / representatives who currently or will assist patient after discharge: ORALIA PERALTA, SISTER /POA, [place] [phone] * Verbal permission to speak to the caregivers and representatives has been obtained from the patient. N/A * Community resources currently utilized None * Please name any agencies selected above. NONE * Additional services required to return to the preadmission environment? No * Can the patient safely return to the preadmission environment? Yes * Has this patient been hospitalized within the prior 30 days at any hospital? Yes External Providers External Provider: [facility] Next Contact Date: 06/15/2018 Service Request Date: Service Type: Resolution: Reviewer: Comments: Patient Name: ELSA GARCÍA Page 46849 at 1839 All edits/amendments must be made on the electronic document DICTATION DATE: 06/14/181838 MAGNET PLACER: DORA 06/14/181838 RPT#: [id number] DC DATE: STATUS: ADM IN [facility] [address] [place] [address] END OF REPORT
--- NOTE | ~2018-06-09 | MORECARE ---
CASE MANAGEMENT DISCHARGE SUMMARY PATIENT: ELSA GARCÍA UNIT: [id number] ADM DATE: 06/09/18 AGE: 67 : 48 SEX: F ROOM/BED: D.5277 AUTHOR: MATHEW,DOC PHYSICIAN: REFERRING PHYSICIAN: LANETTE AZUL MD DATE OF SERVICE: 06/17/18 Discharge Plan Patient Name: ELSA GARCÍA Facility: [facility]:[place] : 1950 Planned Disposition: Nursing Facility WIL Cert Anticipated Discharge Date: 06/17/18 Discharge Date: Expected LOS: 8 Initial Reviewer: [id number] Initial Review Date: 06/13/2018 Generated: 06/17/18 1:45 pm Comments DCP- Discharge Planning Updated by [email or web address]: Mani Lisa on 06/14/18 5:[address] Patient Name: ELSA GARCÍA Admission Status: ER Accout number: [id number] Admission Date: 06-09-2018 : 1950 Admission Diagnosis:SHORTNESS OF BREATH Attending: LANETTE AZUL Current LOS: 5 Anticipated DC Date: Planned Disposition: Nursing Facility [facility] Cert Primary Insurance: [facility] MEDICARE SOLUTIONS PLANNED EXTERNAL PROVIDER: [facility] LONG TERM CARE MEDICAID BED Discharge Planning Comments: CM SPOKE TO PT IN ROOM REGARDING DISCHARGE PLANNING AND NEEDS. PT REPORTS SHE IS STILL AT THE [facility] AND CAN'T GO HOME. CM SPOKE TO NICOLA OF [facility], THEY WILL ACCEPT BACK FOR CONTINUED [facility] CARE AT DISCHARGE. FOR DISCHARGE, FAX DISCHARGE INFORMATION TO THE [facility], , NURSE REPORT TO BE CALLED TO THE [facility] AT [phone]. PT TO TRANSPORT VIA AMBULANCE. Commissary Steward: Mani Lisa DCPIA - Discharge Planning Initial Assessment Updated by [id number]: Mani Lisa on 06/14/18 6:34 pm * Is the patient Alert and Oriented? Yes * How many steps to enter\exit or inside your home? NONE * PCP DR. AZUL * [facility] * Preadmission Environment Waste Recycler Alf * Facility Name [facility] * ADLs Partial Dependent * Partial ADLs (Assistance needed) Ambulation Bathing Dressing Medication Management Toileting Transfers * Equipment Other * Other Equipment ALL MEDICAL EQUIPMENT PROVIDED BY FACILITY * List name and contact numbers for known caregivers / representatives who currently or will assist patient after discharge: ORALIA PERALTA, SISTER /POA, [place] [phone] * Verbal permission to speak to the caregivers and representatives has been obtained from the patient. N/A * Community resources currently utilized None * Please name any agencies selected above. NONE * Additional services required to return to the preadmission environment? No * Can the patient safely return to the preadmission environment? Yes * Has this patient been hospitalized within the prior 30 days at any hospital? Yes Coverage Notice Reviewer: [email or web address] Sukhdeep Lisa Notice Issued Date-Time: 06/17/2018 12:15 Notice Type: IM Discharge Notice Notice Delivered To: Family Member Relationship to Patient: Sister Lead Based Paint Technician Name: ORALIA PERALTA Delivery Method: HAND - Hand Delivered Vero Days: Prior Verbal Notification: Recipient Understood Notice: Yes Recipient Signature: Yes Med Rec Note Co-signed by Attending: Coverage Notice Comment: Last DP export: 06/14/18 5:39 p Patient Name: ELSA GARCÍA Page 39442 at 1245 All edits/amendments must be made on the electronic document DICTATION DATE: 06/17/18 124 SHOW HOST/HOSTESS: DORA 06/17/18 1244 RPT#: [id number] DC DATE: STATUS: ADM IN [facility] [address] [place] [address] END OF REPORT
--- NOTE | ~2018-06-09 | MORECARE ---
CASE MANAGEMENT DISCHARGE SUMMARY PATIENT: ELSA GARCÍA UNIT: [id number] ADM DATE: 06/09/18 AGE: 67 : 46 SEX: F ROOM/BED: D.9807 AUTHOR: MATHEW,DOC PHYSICIAN: REFERRING PHYSICIAN: LANETTE AZUL MD DATE OF SERVICE: 06/18/18 Discharge Plan Patient Name: ELSA GARCÍA Facility: [facility]:[place] : 1950 Planned Disposition: Nursing Facility WIL Cert Anticipated Discharge Date: 06/17/18 Discharge Date: Expected LOS: 8 Initial Reviewer: [id number] Initial Review Date: 06/13/2018 Generated: 06/18/18 5:03 pm Comments DCP- Discharge Planning Updated by [email or web address]: Saumya Verdin on 06/18/18 2:[address] LATE ENTRY 1308 PRIMARY NURSE ADVISED CM THAT THE PATIENT IS FOR DISCHARGE BACK TO THE [facility] TO HER SURGICAL SERVICES DIRECTOR BED. CM CALLED [phone] AND SPOKE WITH RAMÓN. THE PATIENT CAN RETURN TODAY. PRIMARY TO FAX DISCHARGE PAPERWORK TO [phone] PRIOR TO DISCHARGING THE PATIENT. NURSE TO CALL REPORT TO [phone]. CM PROVIDED THENURSE WITH INFORMATION AND CONTACT PHONE NUMBERS. AWAIT COMPLETION OF DISCHARGE ORDERS. DCP- Discharge Planning Updated by [id number]: Mani Lisa on 06/17/18 4:[address] Patient Name: ELSA GARCÍA Encounter No: [id number] : 1950 Primary Insurance: [facility] MEDICARE SOLUTIONS Anticipated DC Date: 06-17-2018 Planned Disposition: Nursing Facility WIL Cert External Planned Provider: [facility] DCP follow-up note: CM SPOKE TO THELMA OF [facility], CHARLEY WILL ADMIT PT AT THE [facility] AFTER PT COMPLETES HER IV ANTIBIOTICS IN THE [facility]. FOR DISCHARGE, FAX DISCHARGE INFORMATION TO THE [facility], , NURSE REPORT TO BE CALLED TO THE [facility] AT [phone]. FAX DISCHARGE INFORMATION TO [facility] AT [phone]. PT TO TRANSPORT VIA AMBULANCE. Checkroom Chief: Mani Lisa DCP- Discharge Planning Updated by [id number]: Mani Lisa on 06/17/18 11:[address] Patient Name: ELSA GARCÍA Encounter No: [id number] : 1950 Primary Insurance: [facility] MEDICARE SOLUTIONS Anticipated DC Date: 06-17-2018 Planned Disposition: Nursing Facility [facility] External Planned Provider: [facility]M [facility] MEDICAID BED Discharge Planning Comments: CM SPOKE TO PT'S ORALIA CHAVEZ, AND THELMA OF [facility]. ORALIA IS WANTING EVALUATION FOR HOSPICE TO BE PROVIDED AT THE [facility] WITH EVENTUAL TRANSITION TO HOME WITH HOSPICE IF POSSIBLE. IMPORTANT MESSAGE FROM MEDICARE PROVIDED AND EXPLAINED. CM OBTAINED HOSPICE EVALUATION ORDER. CM PROVIDED REFERRAL PACKET TO [facility] OF [facility], FAXED REFERRAL TO [facility], . CM SPOKE TO [facility], THEY WILL ACCEPT BACK FOR CONTINUED SURGICAL SERVICES DIRECTOR CARE AT DISCHARGE AND CAN PROVIDE THE [place] [facility] AT THE [facility] AND CAN ACCEPT TODAY. CM WAITING DETERMINATION FROM [facility]. FOR DISCHARGE, FAX DISCHARGE INFORMATION TO THE [facility], , NURSE REPORT TO BE CALLED TO THE [facility] AT [phone]. PT TO TRANSPORT VIA AMBULANCE. Checkroom Chief: Mani Lisa DCP- Discharge Planning Updated by [id number]: Mani Lisa on 06/14/18 5:[address] Patient Name: ELSA GARCÍA Admission Status: ER Accout number: [id number] Admission Date: 06-09-2018 : 1950 Admission Diagnosis:SHORTNESS OF BREATH Attending: LANETTE AZUL Current LOS: 5 Anticipated DC Date: Planned Disposition: Nursing Facility [facility] Primary Insurance: [facility] MEDICARE SOLUTIONS PLANNED EXTERNAL PROVIDER: [facility] TERM C[facility] MEDICAID BED Discharge Planning Comments: CM SPOKE TO PT IN ROOM REGARDING DISCHARGE PLANNING AND NEEDS. PT REPORTS SHE IS STILL AT THE [facility] AND CAN'T GO HOME. CM SPOKE TO [facility], THEY WILL ACCEPT BACK FOR CONTINUED FCI CARE AT DISCHARGE. FOR DISCHARGE, FAX DISCHARGE INFORMATION TO THE [facility], , NURSE REPORT TO BE CALLED TO THE [facility] AT [phone]. PT TO TRANSPORT VIA AMBULANCE. Checkroom Chief: Mani Lisa DCPIA - Discharge Planning Initial Assessment Updated by [id number]: Mani Lisa on 06/14/18 6:34 pm * Is the patient Alert and Oriented? Yes * How many steps to enter\exit or inside your home? NONE * PCP DR. AZUL * [facility] * Preadmission Environment [facility] * Facility Name [facility] * ADLs Partial Dependent * Partial ADLs (Assistance needed) Ambulation Bathing Dressing Medication Management Toileting Transfers * Equipment Other * Other Equipment ALL MEDICAL EQUIPMENT PROVIDED BY FACILITY * List name and contact numbers for known caregivers / representatives who currently or will assist patient after discharge: ORALIA PERALTA, SISTER /POA, [place] [phone] * Verbal permission to speak to the caregivers and representatives has been obtained from the patient. N/A * Community resources currently utilized None * Please name any agencies selected above. NONE * Additional services required to return to the preadmission environment? No * Can the patient safely return to the preadmission environment? Yes * Has this patient been hospitalized within the prior 30 days at any hospital? Yes Coverage Notice Reviewer: [id number] - Mani Lisa Notice Issued Date-Time: 06/17/2018 12:15 Notice Type: IM Discharge Notice Notice Delivered To: Family Member Relationship to Patient: Sister Wood Boat Builder Supervisor Name: ORALIA PERALTA Delivery Method: HAND - Hand Delivered Vero Days: Prior Verbal Notification: Recipient Understood Notice: Yes Recipient Signature: Yes Med Rec Note Co-signed by Attending: Coverage Notice Comment: Last DP export: 06/17/18 4:22 p Patient Name: ELSA GARCÍA Page [id number] at 1603 All edits/amendments must be made on the electronic document DICTATION DATE: 06/18/18 1602 SUPERVISOR SHUTTLE PREPARATION: DORA 06/18/18 160 RPT#: [id number] DC DATE: STATUS: ADM IN [facility] [address] [place] [address] END OF REPORT
[2018-06-09 13:25] LABS: BASOPHILS 0.9 % (0-2); EOSINOPHILS 6.5 % (0-7); HEMATOCRIT 32.1 % (36.0-48.0); HEMOGLOBIN 9.7 g/dL (12-16); IMMATURE GRANULOCYTES 0.2 % (0-5); LYMPHOCYTES 21.7 % (15-50); MCH 26.4 pg (26.0-34.0); MCHC 30.2 g/dL (31.0-37.0); MCV 87.2 fL (80.0-100.0); MEAN PLATELET VOLUME 9.3 fL (7.4-10.4); MONOCYTES 4.3 % (2-11); NEUTROPHILS 66.4 % (40-80); PLATELET COUNT 188 10x3/uL (130-400); RBC 3.68 10x6/uL (4.00-5.40); RDW 20.1 % (11.5-14.5); WBC 6.5 10x3/uL (4.8-10.8)
[2018-06-09 13:41] LABS: ALBUMIN 2.5 g/dL (3.4-5.0); ANION GAP 17.7 mmol/L (8-16); BILIRUBIN - TOTAL 0.28 mg/dL (0.2-1.3); CALCIUM 8.1 mg/dL (8.5-10.1); CARBON DIOXIDE 22.2 mmol/L (21.0-32.0); CREATININE - SERUM 3.3 mg/dL (0.6-1.3); PROTEIN - SERUM 6.4 g/dL (6.4-8.2)
[2018-06-09 14:17] LABS: POTASSIUM - SERUM 6.9 mmol/L (3.5-5.1)
[2018-06-09 14:48] VITALS: BP 126/056
[2018-06-09 15:02] LABS: APPEARANCE TURBID (CLEAR)
[2018-06-09 15:03] LABS: BACTERIA MODERATE /hpf (NONE SEEN); WHITE CELLS - URINE >50 /hpf (0-5)
[2018-06-09 15:04] LABS: COLOR YELLOW (YELLOW)
[2018-06-09 19:20] VITALS: BP 125/59
[2018-06-09 19:32] LABS: ANION GAP 13.1 mmol/L (8-16); CALCIUM 7.9 mg/dL (8.5-10.1); CARBON DIOXIDE 24.8 mmol/L (21.0-32.0); CREATININE - SERUM 3.4 mg/dL (0.6-1.3)
[2018-06-09 19:36] LABS: POTASSIUM - SERUM 6.9 mmol/L (3.5-5.1)
[2018-06-10 01:20] VITALS: BP 112/60
[2018-06-10 05:19] LABS: BASOPHILS 0.4 % (0-2); EOSINOPHILS 6.3 % (0-7); HEMATOCRIT 31.7 % (36.0-48.0); HEMOGLOBIN 9.6 g/dL (12-16); IMMATURE GRANULOCYTES 0.5 % (0-5); LYMPHOCYTES 29.9 % (15-50); MCH 26.5 pg (26.0-34.0); MCHC 30.3 g/dL (31.0-37.0); MCV 87.6 fL (80.0-100.0); MEAN PLATELET VOLUME 9.9 fL (7.4-10.4); MONOCYTES 5.3 % (2-11); NEUTROPHILS 57.6 % (40-80); PLATELET COUNT 187 10x3/uL (130-400); RBC 3.62 10x6/uL (4.00-5.40); RDW 20.3 % (11.5-14.5)
[2018-06-10 05:23] LABS: WBC 8.4 10x3/uL (4.8-10.8)
[2018-06-10 05:32] LABS: CARBON DIOXIDE 20.3 mmol/L (21.0-32.0)
[2018-06-10 05:51] LABS: ANION GAP 17.8 mmol/L (8-16); CALCIUM 7.9 mg/dL (8.5-10.1); CREATININE - SERUM 3.6 mg/dL (0.6-1.3); MAGNESIUM - SERUM 2.4 mg/dL (1.8-2.4); PHOSPHOROUS 5.3 mg/dL (2.5-4.9)
[2018-06-10 05:54] LABS: POTASSIUM - SERUM 7.1 mmol/L (3.5-5.1)
[2018-06-10 06:38] VITALS: BP 109/44
[2018-06-10 07:48] LABS: INR 1.44 (0.85-1.17)
[2018-06-10 08:09] VITALS: BP 97/47
[2018-06-10 10:44] VITALS: BMI 47.0
[2018-06-10 12:58] VITALS: BP 138/69
[2018-06-10 13:51] VITALS: Ht 165.1 cm; Wt 129.2 kg
[2018-06-10 14:34] LABS: ANION GAP 16.1 mmol/L (8-16); CALCIUM 7.5 mg/dL (8.5-10.1); CARBON DIOXIDE 21.9 mmol/L (21.0-32.0)
[2018-06-10 17:41] VITALS: BP 100/68
[2018-06-10 20:00] VITALS: BP 106/64
[2018-06-11] VITALS: BP 122/62
[2018-06-11 04:00] VITALS: BP 108/72
[2018-06-11 08:20] LABS: BASOPHILS 0.3 % (0-2); EOSINOPHILS 7.2 % (0-7); HEMATOCRIT 27.2 % (36.0-48.0); HEMOGLOBIN 8.3 g/dL (12-16); IMMATURE GRANULOCYTES 0.2 % (0-5); LYMPHOCYTES 23.2 % (15-50); MCH 26.3 pg (26.0-34.0); MCHC 30.5 g/dL (31.0-37.0); MCV 86.3 fL (80.0-100.0); MEAN PLATELET VOLUME 9.5 fL (7.4-10.4); MONOCYTES 5.1 % (2-11); PLATELET COUNT 160 10x3/uL (130-400); RBC 3.15 10x6/uL (4.00-5.40); RDW 19.4 % (11.5-14.5)
[2018-06-11 08:21] LABS: WBC 5.9 10x3/uL (4.8-10.8)
[2018-06-11 08:34] LABS: ALBUMIN 2.1 g/dL (3.4-5.0); ANION GAP 18.4 mmol/L (8-16); BILIRUBIN - TOTAL 0.26 mg/dL (0.2-1.3); CALCIUM 7.7 mg/dL (8.5-10.1); CARBON DIOXIDE 23.6 mmol/L (21.0-32.0); CREATININE - SERUM 4.2 mg/dL (0.6-1.3); PROTEIN - SERUM 6.7 g/dL (6.4-8.2)
[2018-06-11 08:45] LABS: INR 1.55 (0.85-1.17)
[2018-06-11 09:50] VITALS: BP 134/65
[2018-06-11 16:40] VITALS: BP 157/73
[2018-06-11 20:00] VITALS: BP 132/57
[2018-06-12] VITALS: BP 115/45
[2018-06-12 04:00] VITALS: BP 136/71
[2018-06-12 06:46] LABS: BASOPHILS 0.4 % (0-2); EOSINOPHILS 7.4 % (0-7); HEMATOCRIT 26.1 % (36.0-48.0); HEMOGLOBIN 7.9 g/dL (12-16); IMMATURE GRANULOCYTES 0.2 % (0-5); LYMPHOCYTES 29.3 % (15-50); MCH 26.1 pg (26.0-34.0); MCHC 30.3 g/dL (31.0-37.0); MCV 86.1 fL (80.0-100.0); MEAN PLATELET VOLUME 9.8 fL (7.4-10.4); MONOCYTES 7.4 % (2-11); NEUTROPHILS 55.3 % (40-80); PLATELET COUNT 170 10x3/uL (130-400); RBC 3.03 10x6/uL (4.00-5.40); RDW 19.4 % (11.5-14.5); WBC 5.3 10x3/uL (4.8-10.8)
[2018-06-12 07:02] LABS: ANION GAP 19.3 mmol/L (8-16); CALCIUM 7.3 mg/dL (8.5-10.1); CREATININE - SERUM 4.2 mg/dL (0.6-1.3); PHOSPHOROUS 7.6 mg/dL (2.5-4.9); POTASSIUM - SERUM 4.3 mmol/L (3.5-5.1)
[2018-06-12 09:33] VITALS: BP 121/65
[2018-06-12 12:58] VITALS: BP 110/54
[2018-06-12 17:09] VITALS: BP 127/68
[2018-06-12 20:21] VITALS: BP 145/78
[2018-06-13 01:09] VITALS: BP 125/67
[2018-06-13 05:32] VITALS: BP 135/62
[2018-06-13 08:54] VITALS: BP 134/68
[2018-06-13 12:20] LABS: BASOPHILS 0.2 % (0-2); EOSINOPHILS 0.4 % (0-7); IMMATURE GRANULOCYTES 0.4 % (0-5); LYMPHOCYTES 11.1 % (15-50); MCH 27.5 pg (26.0-34.0); MCHC 31.5 g/dL (31.0-37.0); MCV 87.4 fL (80.0-100.0); MEAN PLATELET VOLUME 9.5 fL (7.4-10.4); MONOCYTES 1.7 % (2-11); NEUTROPHILS 86.2 % (40-80); PLATELET COUNT 169 10x3/uL (130-400); RDW 17.3 % (11.5-14.5); WBC 4.7 10x3/uL (4.8-10.8)
[2018-06-13 12:30] LABS: INR 1.39 (0.85-1.17); PROTIME 16.4 SECONDS (11.6-15.0)
[2018-06-13 12:32] LABS: HEMATOCRIT 32.7 % (36.0-48.0); HEMOGLOBIN 10.3 g/dL (12-16); RBC 3.74 10x6/uL (4.00-5.40)
[2018-06-13 12:46] LABS: ANION GAP 15.6 mmol/L (8-16); CARBON DIOXIDE 30.5 mmol/L (21.0-32.0); PHOSPHOROUS 6.4 mg/dL (2.5-4.9); POTASSIUM - SERUM 4.1 mmol/L (3.5-5.1)
[2018-06-13 12:49] LABS: CALCIUM 6.7 mg/dL (8.5-10.1)
[2018-06-13 21:04] VITALS: BP 144/71
[2018-06-14] VITALS: BP 127/59
[2018-06-14 05:03] VITALS: BP 129/70
[2018-06-14 06:00] LABS: BASOPHILS 0.3 % (0-2); EOSINOPHILS 3.5 % (0-7); HEMATOCRIT 30.5 % (36.0-48.0); HEMOGLOBIN 9.6 g/dL (12-16); IMMATURE GRANULOCYTES 0.3 % (0-5); LYMPHOCYTES 24.7 % (15-50); MCH 27.7 pg (26.0-34.0); MCHC 31.5 g/dL (31.0-37.0); MCV 88.2 fL (80.0-100.0); MEAN PLATELET VOLUME 9.7 fL (7.4-10.4); MONOCYTES 6.3 % (2-11); NEUTROPHILS 64.9 % (40-80); PLATELET COUNT 184 10x3/uL (130-400); RBC 3.46 10x6/uL (4.00-5.40); RDW 17.4 % (11.5-14.5)
[2018-06-14 06:27] LABS: WBC 6.5 10x3/uL (4.8-10.8)
[2018-06-14 06:51] LABS: ALBUMIN 2.1 g/dL (3.4-5.0); ANION GAP 14.1 mmol/L (8-16); CALCIUM 7.6 mg/dL (8.5-10.1); CARBON DIOXIDE 33.3 mmol/L (21.0-32.0); CREATININE - SERUM 3.8 mg/dL (0.6-1.3); PHOSPHOROUS 5.6 mg/dL (2.5-4.9); POTASSIUM - SERUM 3.4 mmol/L (3.5-5.1)
[2018-06-14 08:56] VITALS: BP 129/54
[2018-06-14 11:36] VITALS: BP 126/68
[2018-06-14 15:46] VITALS: BP 125/57
[2018-06-14 21:10] VITALS: BP 141/75
[2018-06-15] VITALS: BP 135/66
[2018-06-15 05:44] VITALS: BP 133/71
[2018-06-15 16:40] VITALS: BP 128/78
[2018-06-15 20:00] VITALS: BP 160/66
[2018-06-16] VITALS: BP 127/45
[2018-06-16 04:00] VITALS: BP 127/47
[2018-06-16 05:59] LABS: BASOPHILS 0.6 % (0-2); EOSINOPHILS 5.4 % (0-7); HEMATOCRIT 30.2 % (36.0-48.0); HEMOGLOBIN 9.3 g/dL (12-16); IMMATURE GRANULOCYTES 0.6 % (0-5); MCH 27.2 pg (26.0-34.0); MCHC 30.8 g/dL (31.0-37.0); MCV 88.3 fL (80.0-100.0); MONOCYTES 6.2 % (2-11); NEUTROPHILS 60.2 % (40-80); PLATELET COUNT 171 10x3/uL (130-400); RBC 3.42 10x6/uL (4.00-5.40); RDW 16.8 % (11.5-14.5); WBC 7.1 10x3/uL (4.8-10.8)
[2018-06-16 06:05] LABS: ANION GAP 12.4 mmol/L (8-16); CALCIUM 7.3 mg/dL (8.5-10.1); CARBON DIOXIDE 35.8 mmol/L (21.0-32.0); CREATININE - SERUM 2.9 mg/dL (0.6-1.3); POTASSIUM - SERUM 3.2 mmol/L (3.5-5.1)
[2018-06-16 06:29] LABS: INR 1.61 (0.85-1.17); PROTIME 18.5 SECONDS (11.6-15.0)
[2018-06-16 08:39] VITALS: BP 125/67
[2018-06-16 19:03] VITALS: BP 128/65
[2018-06-16 20:00] VITALS: BP 146/62
[2018-06-17 00:10] VITALS: BP 141/50
[2018-06-17 04:00] VITALS: BP 151/60
[2018-06-17 05:03] LABS: BASOPHILS 0.6 % (0-2); HEMATOCRIT 31.4 % (36.0-48.0); HEMOGLOBIN 9.9 g/dL (12-16); IMMATURE GRANULOCYTES 0.4 % (0-5); LYMPHOCYTES 24.7 % (15-50); MCH 27.6 pg (26.0-34.0); MCHC 31.5 g/dL (31.0-37.0); MCV 87.5 fL (80.0-100.0); MEAN PLATELET VOLUME 9.5 fL (7.4-10.4); MONOCYTES 5.6 % (2-11); NEUTROPHILS 63.7 % (40-80); PLATELET COUNT 202 10x3/uL (130-400); RBC 3.59 10x6/uL (4.00-5.40); RDW 16.3 % (11.5-14.5); WBC 7.1 10x3/uL (4.8-10.8)
[2018-06-17 05:26] LABS: ANION GAP 8.9 mmol/L (8-16); CALCIUM 7.9 mg/dL (8.5-10.1); CARBON DIOXIDE 36.2 mmol/L (21.0-32.0); CREATININE - SERUM 2.8 mg/dL (0.6-1.3); POTASSIUM - SERUM 3.1 mmol/L (3.5-5.1)
[2018-06-17 08:50] VITALS: BP 107/67
[2018-06-17 17:08] VITALS: BP 157/53
[2018-06-17 20:00] VITALS: BP 141/60
[2018-06-17 23:53] VITALS: BP 132/56
[2018-06-18 04:00] VITALS: BP 138/54
[2018-06-18 07:41] VITALS: BP 146/57
[2018-06-18 11:28] VITALS: BP 166/80
[2018-06-18] MEDS ORDERED: ROCEPHIN 2 GM/D52 G1 IV (15:08)
== END 2018-06-18 17:20 | DRG 698 ==
LOC: D.ER 12:08 → D.EDHOLD 15:33 → D.M2 15:33
PROVIDERS: Family Medicine; Internal Medicine Nephrology; Legal Medicine
PROC: 05HB33Z Insertion of Infusion Device into Right Basilic Vein, Percutaneous Approach (ICD-10-PCS; principal; 2018-06-09)
PROC: B54MZZA Ultrasonography of Right Upper Extremity Veins, Guidance (ICD-10-PCS; 2018-06-09)
DX: T83.511A Infection and inflammatory reaction due to indwelling urethral catheter, initial encounter (principal); G93.41 Metabolic encephalopathy; Z68.43 Body mass index [BMI] 50.0-59.9, adult; G82.20 Paraplegia, unspecified; N39.0 Urinary tract infection, site not specified; E87.5 Hyperkalemia; F32.9 Major depressive disorder, single episode, unspecified; E66.01 Morbid (severe) obesity due to excess calories; E11.22 Type 2 diabetes mellitus with diabetic chronic kidney disease; I12.9 Hypertensive chronic kidney disease with stage 1 through stage 4 chronic kidney disease, or unspecified chronic kidney disease; N18.9 Chronic kidney disease, unspecified